=== PATIENT | female | born 1935 | race Caucasian/White ===

== ENCOUNTER 2016-08-04 11:28 | Observation (INO) | payer MEDICARE, OTHER ==
[~2016-08-04] VITALS: Ht 162.6 cm; Wt 66.7 kg
[2016-08-04 12:38] LABS: BASOPHILS % (AUTO) 0 % (0-10); EOSINOPHILS % (AUTO) 0 % (0-10); LYMPHOCYTES # (AUTO) 0.9 X 10^3 (1.0-4.0); LYMPHOCYTES % (AUTO) 11 % (12-44); MEAN CORPUSCULAR HEMOGLOBIN 32 PG (25-34); MEAN CORPUSCULAR HGB CONC 35 G/DL (32-36); MEAN CORPUSCULAR VOLUME 92 FL (80-99); MEAN PLATELET VOLUME 10.1 FL (7.4-10.4); MONOCYTES # (AUTO) 0.7 X 10^3 (0.0-1.0); MONOCYTES % (AUTO) 8 % (0-12); NEUTROPHILS % (AUTO) 81 % (42-75); PLATELET COUNT 387 10^3/uL (130-400); RED BLOOD COUNT 3.97 10^6/uL (4.35-5.85); RED CELL DISTRIBUTION WIDTH 12.8 % (10.0-14.5); WHITE BLOOD COUNT 8.6 10^3/uL (4.3-11.0)
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
[2016-08-04 12:52] LABS: ALBUMIN 3.9 G/DL (3.2-4.5); BILIRUBIN,TOTAL 0.8 MG/DL (0.1-1.0); CALCIUM 9.4 MG/DL (8.5-10.1); CREATININE SERUM 1.7 MG/DL (0.60-1.30); POTASSIUM 3.8 MMOL/L (3.6-5.0); TOTAL PROTEIN 6.9 G/DL (6.4-8.2)
--- NOTE | 2016-08-04 13:13 | Diagnostic Imaging Report ---
PROCEDURE: CT head without contrast. TECHNIQUE: Multiple contiguous axial images were obtained through the brain without the use of intravenous contrast. INDICATION: Altered mental status. Exam compared 05/27/2016. FINDINGS: Extensive periventricular white matter hypodensities symmetric and unchanged from prior likely reflective of chronic small vessel sequelae. No sulcal effacement. No findings of generalized or focal cerebral edema. The basilar cisterns are patent. No mass or mass effect. Orbits, sinuses and calvarium are within normal limits. IMPRESSION: Stable chronic senescent changes with atrophy and white matter disease. No hemorrhage or acute finding. No change from prior. Dictated by: Dictated on workstation # [id number]
[2016-08-04] MEDS ORDERED: ATOR40TA70 (14:32)
[2016-08-04] MEDS ORDERED: LEVO25TA5 PO (14:32)
[2016-08-04] MEDS ORDERED: LISI1TAB8 PO (14:32)
[2016-08-04 14:57] VITALS: BP 132/64
[2016-08-04] MEDS ORDERED: CATHETER FLUSH 10 ML SYR IV PRN ×2 (15:00→16:45)
--- NOTE | 2016-08-04 15:06 | Diagnostic Imaging Report ---
INDICATION: Status post fall, pain. TECHNIQUE: Single view chest 2:15 PM. CORRELATION STUDY: None FINDINGS: Heart size enlarged. Vasculature is within normal limits. Calcification of the aortic arch. Areas of atelectasis about the lung bases, right greater than left. No significant effusion, infiltrate or pneumothorax. The visualized ribs appear intact. There is degenerative change about the bilateral shoulders. Dislocation at the level of the right shoulder not excluded. IMPRESSION: 1. Bibasilar atelectasis with chronic change of the lung parenchyma. 2. No definitive displaced rib fracture. Dictated by: Dictated on workstation # [id number]
[2016-08-04] MEDS: ACETAMINOPHEN 325 MG TABLET/CAPLET (TYLENOL) PO PRN (15:11)
[2016-08-04] MEDS: NS IV 1000 ML 1,000 ML IV SCH (15:11)
[2016-08-04] MEDS ORDERED: ASPI-999 PO (15:55)
[2016-08-04 16:05] VITALS: BP 146/64
[2016-08-04] MEDS ORDERED: HALOPERIDOL 5 MG/ML (HALDOL) AMP IM PRN (16:45)
[2016-08-04 17:14] LABS: BILIRUBIN,URINE NEGATIVE (NEGATIVE); KETONES,URINE NEGATIVE (NEGATIVE); LEUKOCYTE ESTERASE ,URINE NEGATIVE (NEGATIVE); NITRITE,URINE NEGATIVE (NEGATIVE); PH,URINE 6.5 (5-9); PROTEIN,URINE NEGATIVE (NEGATIVE); SQUAMOUS EPITHELIAL CELL,UR RARE /HPF; UROBILINOGEN,URINE NORMAL (NORMAL)
[2016-08-04 20:15] VITALS: BP 127/62
[2016-08-04] MEDS: LORazepam INJ 2 MG/ML (ATIVAN) VIAL IVP PRN (21:18)
[2016-08-04 23:41] VITALS: BP 123/71
[2016-08-05] MEDS: NS IV 1000 ML 1,000 ML IV SCH ×3 (01:28→23:28)
[2016-08-05 03:49] VITALS: BP 161/75
[2016-08-05 05:43] LABS: BASOPHILS % (AUTO) 1 % (0-10); EOSINOPHILS # (AUTO) 0.2 10^3/uL (0.0-0.3); EOSINOPHILS % (AUTO) 2 % (0-10); LYMPHOCYTES # (AUTO) 1.3 X 10^3 (1.0-4.0); LYMPHOCYTES % (AUTO) 17 % (12-44); MEAN CORPUSCULAR HEMOGLOBIN 32 PG (25-34); MEAN CORPUSCULAR HGB CONC 35 G/DL (32-36); MEAN CORPUSCULAR VOLUME 93 FL (80-99); MEAN PLATELET VOLUME 9.8 FL (7.4-10.4); MONOCYTES # (AUTO) 0.7 X 10^3 (0.0-1.0); MONOCYTES % (AUTO) 9 % (0-12); NEUTROPHILS # (AUTO) 5.3 X 10^3 (1.8-7.8); NEUTROPHILS % (AUTO) 71 % (42-75); PLATELET COUNT 360 10^3/uL (130-400); RED BLOOD COUNT 3.85 10^6/uL (4.35-5.85); RED CELL DISTRIBUTION WIDTH 12.9 % (10.0-14.5); WHITE BLOOD COUNT 7.5 10^3/uL (4.3-11.0)
[2016-08-05 06:01] LABS: ALBUMIN 3.4 G/DL (3.2-4.5); BILIRUBIN,TOTAL 0.8 MG/DL (0.1-1.0); CALCIUM 8.7 MG/DL (8.5-10.1); CREATININE SERUM 1.38 MG/DL (0.60-1.30); POTASSIUM 3.7 MMOL/L (3.6-5.0)
[2016-08-05] MEDS ORDERED: FLU TRIvalent (5 YOA+) 2016-17 (AFLURIA) 0.5 ML IM ONE (07:00)
[2016-08-05 08:00] VITALS: BP 185/79
[2016-08-05] MEDS: lisINopril 10 MG (PRINIVIL) TAB PO SCH (09:27)
[2016-08-05] MEDS: ACETAMINOPHEN 325 MG TABLET/CAPLET (TYLENOL) PO PRN (09:51)
[2016-08-05] MEDS ORDERED: LISI-552 PO (10:37)
[2016-08-05 10:52] VITALS: BP 131/73
[2016-08-05 12:00] VITALS: BP 163/90
--- NOTE | 2016-08-05 12:19 | History & Physical-Hospitalist ---
HPI History of Present Illness: HPI/Chief Complaint The patient is an 81-year-old white female who was brought to the emergency room yesterday. She had been found by a caregiver and a neighbor lying on the floor of her home. She was unable to give any useful account as to when she might have fallen but it may have been as much as 12 hours prior. The neighbor took a cell phone photograph of her lying on the floor fully closed. She was in a prone position with her head rotated to the left. She had no specific complaints of pain or any evident injury on first exam. The caregiver also allowed that she had recently noted a subcutaneous anterior ribs in the midclavicular line at the level of ribs 10 and 11 and 12. This is not seemed to be tender and she never noted it to be discolored. They also reported that she had fallen at least 4 times in recent weeks. There may have been others as she does not have constant supervision. Source: patient Exam Limitations: no limitations Date Seen 08/05/16 Attending Physician Jeanette Tabares Rick D MD Referring Physician Date of Admission Aug 04, 2016 at 14:05 Home Medications & Allergies Home Medications Reviewed patient Home Medication Reconciliation Form Allergies Coded Allergies: No Allergy Information Available (Unverified , 05/27/16) Past Eowwfvm-Ibjarg-Bdxywa Hx Patient Social History Alcohol Use: Denies Use Recreational Drug Use: No Smoking Status: Unknown if Ever Smoked Physical Abuse Screen: No Sexual Abuse: No Recent Foreign Travel: No Contact w/other who traveled: No Recent Hopitalizations: No Recent Infectious Disease Expo: No Seasonal Allergies Seasonal Allergies: No Surgeries HX Surgeries: No (UNKNOWN-UNABLE TO GET HX FROM PT) Cardiovascular Hx Cardiovascular Disorders: Yes Cardiac Disorders: High Cholesterol, Hypertension Neurological Hx Neurological Disorders: No Reproductive System : No Sexually Transmitted Disease: No Female Reproductive Disorders: Denies Genitourinary Hx Genitourinary Disorders: No Gastrointestinal Hx Gastrointestinal Disorders: No Musculoskeletal Hx Musculoskeletal Disorders: No Endocrine Hx Endocrine Disorders: Yes Endocrine Disorders: Hypothyroidsim HEENT HX ENT Disorders: No HEENT Disorders: Cataract Loss of Vision: Denies Hearing Impairment: Denies Cancer Hx Cancer: No Psychosocial Hx Psychiatric Problems: No Family Medical History Family Hx: Patient reports no known family medical history. Review of Systems Constitutional: see HPI EENTM: no symptoms reported Respiratory: no symptoms reported Cardiovascular: no symptoms reported Gastrointestinal: no symptoms reported Genitourinary: no symptoms reported Musculoskeletal: no symptoms reported Skin: no symptoms reported Psychiatric/Neurological: Other Physical Exam Physical Exam Vital Signs Vital Sign - Last 12Hours 08/04/16 11:36 Temp 96.4 Pulse 66 Resp 12 B/P 114/82 Pulse Ox 96 O2 Delivery Room Air Capillary Refill : Less Than 3 Seconds General Appearance: Other (the patient was very vague about the circumstances and whether or not she had pain. It was obvious that there was a redness over the left cheek and the left eye was puffy and closed. This would have been the downside of her face to the floor) Eyes: Left Eye Lid Inflammation, Bilateral Eye Normal Inspection HEENT: Normal ENT Inspection Neck: Normal Inspection Respiratory: Chest Non Tender Lungs Clear Normal Breath Sounds No Accessory Muscle Use No Respiratory Distress Other (and it was not painful to palpation) Cardiovascular: Regular Rate, Rhythm No Edema No Gallop No JVD No Murmur Normal Peripheral Pulses Gastrointestinal: Normal Bowel Sounds No Organomegaly No Pulsatile Mass Non Tender Soft Back: Normal Inspection No CVA Tenderness No Vertebral Tenderness Extremity: Normal Capillary Refill Normal Inspection Normal Range of Motion Non Tender No Calf Tenderness No Pedal Edema Skin: Normal Color Warm/Dry Lymphatic: No Adenopathy Comments A chest x-ray was done in the emergency room in an attempt to define the lump on the left chest as described above. This was not useful but the chest x-ray defined a right shoulder dislocation of unknown age. The humeral head was palpable anterior to the clavicle. There was a palpable defect posterior to the humeral head and subacromial. The patient allowed me to move her shoulder and upper arm without complaining of pain. Results Results/Procedures Lab Laboratory Tests 08/04/16 11:38 08/05/16 05:10 Assessment/Plan Admission Diagnosis 1.senile dementia of the Alzheimer's type. 2.multiple falls. 3.inability to continue to live alone. 4.previous right shoulder dislocation age unknown. 5.essential hypertension Clinical Quality Measures DVT/VTE Risk/Contraindication: Risk Factor Score Per Nursin RFS Level Per Nursing on Admit: 2=Moderate BLAISE NESS MD Aug 05, 2016 12:19
[2016-08-05] MEDS: ENOXAPARIN 30 MG/0.3 ML (LOVENOX) SYR SC SCH (13:29)
[2016-08-05] MEDS: LORazepam INJ 2 MG/ML (ATIVAN) VIAL IVP PRN ×2 (14:32→20:01)
[2016-08-05 16:25] VITALS: BP 140/71
[2016-08-05 20:00] VITALS: BP 137/88
[2016-08-06 00:10] VITALS: BP 173/96
[2016-08-06 04:22] VITALS: BP 178/84
[2016-08-06] MEDS: ASPIRIN 81 MG CHEW (CHILDREN'S ASA) PO SCH (08:34)
[2016-08-06] MEDS: lisINopril 10 MG (PRINIVIL) TAB PO SCH (08:34)
[2016-08-06] MEDS: NS IV 1000 ML 1,000 ML IV SCH ×2 (08:34→18:10)
[2016-08-06 08:59] VITALS: BP 150/100
--- NOTE | 2016-08-06 11:33 | Progress Note-Hospitalist ---
Standard Progress Note Progress Notes/Assess & Plan Date Seen 08/06/16 Diagnosis 1.senile dementia of the Alzheimer's type. 2.multiple falls. 3.inability to continue to live alone. 4.previous right shoulder dislocation age unknown. 5.essential hypertension Assess & Plan/Chief Complaint The patient is quite somnolent this morning although she arouses to loud voice or noxious stimulus. She received Haldol 1 mg at 1600 yesterday and Ativan at 20 00. This was given for aggressive behavior but has left her somnolent as previously noted. Her son has arrived from [place] and has many questions and concerns. He Feels that it is likely she will need at least short-term assisted placement and therapy. The hope would be that she could then be discharged home and receive care from a 24 hour in-tourist home keeper. Physical exam: She does respond to firm voice and glabellar stimulus. However she quickly falls back asleep. Lungs are clear to auscultation. CV is regular without murmur. Abdomen is soft. Extremities show only the deformity previously discussed relative to the right shoulder. The son states that in retrospect this may have occurred last sprain as she was attempting to mow the grass with a push mower and kept stalling it in the grass and having to restart it. She then complained of shoulder pain for several weeks or more and could not abduct the shoulder. Impression: Hypertension. 2.dementia which seems to have accelerated lately. 3.multiple falls. 4.chronic right shoulder dislocation. 5.palpable mass left lower anterior ribs. Plan: Discontinue sedative. PT eval. assisted to her. CT scan for evaluation of the mass. Labs Laboratory Tests 08/04/16 11:38 08/05/16 05:10 BLAISE NESS MD Aug 06, 2016 11:33
[2016-08-06 11:44] VITALS: BP 133/89
[2016-08-06] MEDS: ENOXAPARIN 30 MG/0.3 ML (LOVENOX) SYR SC SCH (13:15)
[2016-08-06 15:55] VITALS: BP 170/84
--- NOTE | 2016-08-06 16:05 | Diagnostic Imaging Report ---
PROCEDURE: CT abdomen without contrast. TECHNIQUE: Multiple contiguous axial images were obtained through the abdomen without the use of intravenous contrast. INDICATION: Mass under the left lower rib cage. FINDINGS: The visualized portions of the lungs demonstrate bilateral basilar minimal atelectasis and bilateral small effusions, more prominent on the right side. There is asymmetric prominence of the costal margin on the left side compared to the right side with no soft tissue mass. No fluid collection. The abdominal aorta is normal in caliber. The liver, gallbladder, spleen, and pancreas appear unremarkable for an unenhanced exam. Nonspecific thickening in the left adrenal gland is noted. The right adrenal appears unremarkable. The kidneys demonstrate no hydronephrosis or stones. There is scoliosis and prominent degenerative changes in the lumbar spine. IMPRESSION: 1. There is asymmetric prominence of the costal margin on the left side which could be developmental with possible contribution from prior injury resulting in deformity of the costal margin. There is no soft tissue mass or fluid collection. 2. Bilateral small pleural effusions and minimal bibasilar atelectasis. Dictated by: Dictated on workstation # [id number]
[2016-08-06 19:58] VITALS: BP 139/99
[2016-08-07] VITALS: BP 139/94
[2016-08-07] MEDS: NS IV 1000 ML 1,000 ML IV SCH (04:05)
[2016-08-07 08:20] VITALS: BP 199/95
[2016-08-07 09:19] LABS: BASOPHILS % (AUTO) 0 % (0-10); EOSINOPHILS # (AUTO) 0.1 10^3/uL (0.0-0.3); EOSINOPHILS % (AUTO) 1 % (0-10); LYMPHOCYTES # (AUTO) 1.1 X 10^3 (1.0-4.0); LYMPHOCYTES % (AUTO) 11 % (12-44); MEAN CORPUSCULAR HEMOGLOBIN 32 PG (25-34); MEAN CORPUSCULAR HGB CONC 35 G/DL (32-36); MEAN CORPUSCULAR VOLUME 92 FL (80-99); MEAN PLATELET VOLUME 9.3 FL (7.4-10.4); MONOCYTES # (AUTO) 0.8 X 10^3 (0.0-1.0); MONOCYTES % (AUTO) 8 % (0-12); NEUTROPHILS # (AUTO) 7.8 X 10^3 (1.8-7.8); NEUTROPHILS % (AUTO) 80 % (42-75); PLATELET COUNT 351 10^3/uL (130-400); RED BLOOD COUNT 3.68 10^6/uL (4.35-5.85); RED CELL DISTRIBUTION WIDTH 12.6 % (10.0-14.5); WHITE BLOOD COUNT 9.7 10^3/uL (4.3-11.0)
[2016-08-07 09:39] LABS: ALANINE AMINOTRANSFERASE 22 U/L (0-55); ALBUMIN 3.4 G/DL (3.2-4.5); ANION GAP 10 MMOL/L (5-14); ASPARTATE AMINO TRANSFERASE 45 U/L (5-34); BILIRUBIN,TOTAL 0.9 MG/DL (0.1-1.0); BLOOD UREA NITROGEN 14 MG/DL (7-18); BUN/CREATININE RATIO 16; CALCIUM 8.7 MG/DL (8.5-10.1); CARBON DIOXIDE 23 MMOL/L (21-32); CHLORIDE 103 MMOL/L (98-107); CREATININE SERUM 0.87 MG/DL (0.60-1.30); GFR ESTIMATED > 60; GLUCOSE 81 MG/DL (70-105); POTASSIUM 3.4 MMOL/L (3.6-5.0); SODIUM 136 MMOL/L (135-145)
[2016-08-07] MEDS: lisINopril 10 MG (PRINIVIL) TAB PO SCH (10:05)
[2016-08-07] MEDS: ASPIRIN 81 MG CHEW (CHILDREN'S ASA) PO SCH (10:05)
--- NOTE | 2016-08-07 11:49 | CONSULTATION REPORT ---
DATE OF CONSULTATION: 08/07/2016 SUMMARY: This is an 81-year-old white lady who was found on the floor at home and went to the hospital, confused with multiple falls and dehydration. The patient has dementia and is unable to give any story at all or previous history. She had a catheter, when she came to the floor was removed and she didn't void. The scan of her bladder she had only 300 mL. The catheter was inserted and diagnosis of urinary retention was made. IMPRESSION: Possibly retention versus dehydration and decreased urine output. RECOMMENDATION: Take the Salas catheter out and just follow her up with bladder scan at bedtime and p.r.n. and straight catheter only if it is over 450 mL. Job ID: [id number] Dictated Date: 08/07/2016 11:03:22 Conveyor Attendant Date: 08/07/2016 11:44:50/helena
[2016-08-07] MEDS ORDERED: ENOXAPARIN 40 MG/0.4 ML (LOVENOX) SYR SC SCH (12:30)
--- NOTE | 2016-08-07 13:26 | Physical Therapy Evaluation ---
PT Evaluation-General Medical Diagnosis Admission Date Aug 04, 2016 at 14:41 Medical Diagnosis: weakness, falls Onset Date: Aug 04, 2016 Therapy Diagnosis Therapy Diagnosis: impaired mobility, balance, strength Height/Weight Height (Feet): 5 Height (Inches): 4.00 Weight (Pounds): 147 Weight (Ounces): 0.0 Precautions Precautions/Isolations: Fall Prevention, Standard Precautions Referral Physician: Jeanette Tabares DO Reason for Referral: Evaluation/Treatment Medical History Pertinent Medical History: HTN, Hypothroidism Additional Medical History cataracts, Alzheimer's, high cholesterol Current History Patient came to the ER after a caregiver found her lying on the floor after falling. Reviewed History: Yes Social History Home: Single Level Current Living Status: Alone Entry Into Home: Stairs With Railing Obtained history from family member who says she has 5 steps to go up to her bedroom, she ambulated with a single point cane occasionally, and she lives alone but from now on she would always have somebody with her. Prior/Core FIM Prior Level of Function Functional Shelby Measure 0=Not Assessed/NA 4=Minimal Assistance 1=Total Assistance 5=Supervision or Setup 2=Maximal Assistance 6=Modified Shelby 3=Moderate Assistance 7=Complete Shelby Bed Mobility: 6 Transfers (B,C,W/C) (FIM): 6 Gait: 6 PT Evaluation-Current Subjective Patient in recliner pre tx, family in the room, patient is sleeping and extremely difficult to rouse. She will say words in response to questions but will not open her eyes or follow directions. Pain Numeric Pain Scale: 0-No Pain Comment: Patient actually said she had no pain. Pt/Family Goals patient unable to state a goal Objective Patient Orientation: Confused Attachments: Salas Catheter ROM/Strength ROM Lower Extremities WNL Strenght Lower Extremities unable to test Integumentary/Posture Bladder Incontinence: Salas Cath Neuromuscular (Tone, Coordination, Reflexes) unable to test Sensory Sensation Lower Extremities unable to test Transfers Functional Shelby Measure 0=Not Assessed/NA 4=Minimal Assistance 1=Total Assistance 5=Supervision or Setup 2=Maximal Assistance 6=Modified Shelby 3=Moderate Assistance 7=Complete Shelby Transfers (B, C, W/C) (FIM): 2 Scootin Rollin Supine to/from Sit: 2 Sit to/from Stand: 2 bed t/f WC(FIM only if WC use): 2 Patient seemed to help a little when standing and would shuffle her feet a little during the transfer. Assessment/Needs Patient too fatigued/confused to participate much during therapy. Got patient back to bed. Her family said she had been up in a chair for a few hours and was much more alert. Rehab Potential: Poor PT Fdc Goals Traverse Rod Assembler Goals PT Fdc Goals Time Frame: Aug 14, 2016 Transfers (B,C,W/C) (FIM): 3 Gait (FIM): 1 Distance: 5' Gait Level of Assist: 3 Gait Assistive Device: FWW PT Plan Problem List Problem List: Activity Tolerance, Functional Strength, Safety, Balance, Gait, Transfer, Bed Mobility, ROM Treatment/Plan Treatment Plan: Continue Plan of Care Treatment Plan: Bed Mobility, Education, Functional Activity Yunier, Functional Strength, Gait, Safety, Therapeutic Exercise, Transfers Treatment Duration: Aug 14, 2016 # of days/week 5-6 Visits Per Week: 5-6 Minutes/Day (M-F): 15-30 Minutes/Day (Sat/Sheppard): 15-30 Pt/Family Agrees w/Plan: Yes Safety Risks/Education Patient Education: Transfer Techniques, Correct Positioning, Safety Issues Teaching Recipient: Patient Teaching Methods: Demonstration, Discussion Response to Teaching: Reinforcement Needed Discharge Recommendations Plan Patient will perform bed mobility and transfer training, balance and endurance training, functional strengthening, gait training, education, to improve functional mobility and independence at home. Therapy D/C Recommendations: Home w/ Family Support Time/GCodes Time In: 1305 Time Out: 1320 Total Billed Treatment Time: 15 Total Billed Treatment 1 visit EVM 15 min ANGELO RENTERIA PT Aug 07, 2016 13:26
--- NOTE | 2016-08-07 14:34 | Progress Note-Hospitalist ---
Standard Progress Note Progress Notes/Assess & Plan Date Seen 08/07/16 Diagnosis 1.senile dementia of the Alzheimer's type. 2.multiple falls. 3.inability to continue to live alone. 4.previous right shoulder dislocation age unknown. 5.essential hypertension Assess & Plan/Chief Complaint The patient is more alert today. She was especially alert this morning and was able to shower and the shampoo. She has been slower this afternoon however when I thumped her forehead to stimulate her she reported that she was taking names and writing them down. Plans are for her to be dismissed tomorrow. There still appears to be some confusion about the medicines that she was taking at home at the time of admission. Physical exam: Curiously she holds her eyes closed. She does not admit to any pain. Lungs are clear to auscultation. CV is regular. She seems to be very stiff. Impression: Fall at home. Evidence of increasing dementia. Plan: Physical therapy. Stimulation. Reexamine prescription list. Labs Laboratory Tests 08/07/16 09:13 BLAISE NESS MD Aug 07, 2016 14:34
--- NOTE | 2016-08-07 14:47 | Occupational Therapy Eval ---
OT Evaluation-General/PLF Medical Diagnosis Admission Date Aug 04, 2016 at 14:41 Medical Diagnosis: weakness, falls Onset Date: Aug 04, 2016 Therapy Diagnosis Therapy Diagnosis: Impaired self care skills Height/Weight Height (Feet): 5 Height (Inches): 4.00 Weight (Pounds): 147 Weight (Ounces): 0.0 Precautions Precautions/Isolations: Fall Prevention, Standard Precautions Safety Interventions: Bed Exit Alarm Referral Physician: Jeanette Tabares DO Medical History Pertinent Medical History: Dementia, HTN, Hypothroidism Additional Medical History high cholesterol Reviewed History: Yes Social History Home: Single Level Current Living Status: Alone (with caregiver support) Entry Into Home: Stairs With Railing ADL-Prior Level of Function ADL PLOF Comments Pt was able to complete most basic self care without assistance. Had assist with showers. Used a cane for some mobility. Has had falls recently. DME/Equipment: Shower, Tub/Shower OT Current Status Subjective Pt in bed with eyes closed and son and friend present. Pt agrees to participate with encouragement. Pt states she is not currently having pain. Pt able to respond to simple questions during session, but keeps eyes closed. Mental Status/Objective Patient Orientation: Person, Confused Current Upper Extremity ROM Pt has limited participation in UE assessment secondary to lethargy and confusion. Son reports pt has decreased right shoulder ROM secondary to prior injury. Upper Extremity Strength Unable to perform MMT at this time secondary to lethargy. Pt is able to emergency management program specialist with bilateral hands, but does not follow commands for other strength testing. ADL-Treatment ADL-Current Pt supine to sit with maximal assistance. Pt sat EOB with assist for balance. Pt tends to lean backward, requires assist to correct and multiple cues for proper posture. Unable to complete ADL assessment at this time. Sit to supine with max assist. Assist x2 required to scoot to HOB and reposition in bed. Pt in bed with needs met and visitors present after session. Functional [place] Measure 0=Not Assessed/NA 4=Minimal Assistance 1=Total Assistance 5=Supervision or Setup 2=Maximal Assistance 6=Modified [place] 3=Moderate Assistance 7=Complete IndependenceIRFPAI Quality Coding Scale 6 Independent with activity with or without an assistive device 5 Patient requires set up or clean up by helper. Patient completes activity by themselves 4 Supervision or touching assist (CGA). [place] provide cues , steadying assist 3 The helper provides less than half the effort to complete the activity 2 The helper provides more than half the effort to complete the activity 1 Dependent. The helper does all the effort to complete an activity 7 Patient refused to complete or attempt activity 9 The patient did not perform the activity before the current illness or injury 88 Not attempted due to Medical conditions or safety concerns Education OT Patient Education: Rehab process Teaching Recipient: Patient Teaching Methods: Discussion Response to Teaching: Unable to Comprehend OT Short Term Goals Short Term Goals 1=Demonstrate adherence to instructed precautions during ADL tasks. 2=Patient will verbalize/demonstrate understanding of assistive devices/ modifications for ADL. 3=Patient will improve strength/tolerance for activity to enable patient to perform ADL's. OT Mixer And Scaler Goals Mixer And Scaler Goals Time Frame: 2 weeks Eating (FIM): 5 Grooming(FIM): 4 Upper Body Dressing(FIM): 3 Toilet/Commode Transfer(FIM): 3 Additional Goals: 1-Demonstrate ADL Tasks, 2-Verbalize Understanding, 3- ImproveStrength/[place] 1=Demonstrate adherence to instructed precautions during ADL tasks. 2=Patient will verbalize/demonstrate understanding of assistive devices/ modifications for ADL. 3=Patient will improve strength/tolerance for activity to enable patient to perform ADL's. OT Education/Plan Problem List/Assessment Assessment: Decreased Activ Tolerance, Decreased Safety Aware, Decreased UE Strength, Dependent Transfers, Impaired Bed Mobility, Impaired Cognition, Impaired Funct Balance, Impaired Self-Care Skills Pt admitted with confusion and falls. Pt answers questions and agrees to participate with therapy, but is lethargic and has limited participation. Pt demonstrates decreased mobility, ADL functioning, strength, activity tolerance, and safety awareness. Pt to benefit from skilled OT intervention for ADL training, transfers, strengthening, and safety education to maximize level of function and allow safe discharge plan. Discharge Recommendations Plan/Recommendations: Continue POC Treatment Plan/Plan of Care Treatment,Training & Education: Yes Patient would benefit from OT for education, treatment and training to promote independence in ADL's, mobility, safety and/or upper extremity function for ADL' s. Plan of Care: ADL Retraining, Functional Mobility, UE Funct Exercise/Act Treatment Duration: Aug 21, 2016 # of days/week 5 Visits Per Week: 5 Rehab Potential: Poor Time/GCodes Start Time: 14:03 Stop Time: 14:28 Total Time Billed (hr/min): 25 Billed Treatment Time 1 visit, EVM(25minutes) PT/OT Therapy GCodes Therapy Functional Limitation: Occupational Therapy Test(s)/Tool used to determine: FIM Functional Limitation-Current Charge Code: SELFCUR Modifier: CN Functional Limitation-Goal Charge Code: SELFGOAL Modifier: DEONDRE LO OT Aug 07, 2016 14:47
[2016-08-07 15:44] VITALS: BP 190/92
[2016-08-07 15:55] LABS: MYOGLOBIN SERUM 410.4 NG/ML (10.0-92.0)
[2016-08-07] MEDS ORDERED: lisINopril 10 MG (PRINIVIL) TAB PO NR (16:30)
[2016-08-08 00:49] VITALS: BP 178/81
[2016-08-08 08:00] VITALS: BP 130/90
[2016-08-08] MEDS: ASPIRIN 81 MG CHEW (CHILDREN'S ASA) PO SCH (08:43)
[2016-08-08] MEDS ORDERED: lisINopril 20 MG (ZESTRIL) TAB PO SCH (09:00)
[2016-08-08] MEDS ORDERED: ACET325T49 PO (09:10)
--- NOTE | 2016-08-08 09:14 | Discharge Instructions ---
Discharge Instructions Discharge Medications New, Converted or Re-Newed RX: Other New Medications: Acetaminophen (Acetaminophen) 325 Mg Tablet 650 MG PO Q4H PRN MILD PAIN Days 30 TAB Continued Medications: Aspirin (Aspirin) 81 Mg Tab.chew 81 MG PO DAILY TAB Levothyroxine Sodium (Levothyroxine Sodium) 25 Mcg Tablet 25 MCG PO DAILY TAB Lisinopril (Lisinopril) 20 Mg Tablet 20 MG PO DAILY TAB Discontinued Medications: Lisinopril/Hydrochlorothiazide (Lisinopril-Hctz 20-12.5 mg Tab) 1 Each Tablet 1 TAB PO DAILY TAB Patient Instructions Goal/Follow Up Appt: Dr Barfield in 1 week Patient Instructions: Admit to Dr Roderick Barfield service at [facility] Activity & Diet Discharge Diet: No Restrictions Activity as Tolerated: Yes SATYA SIDDIQUI DO Aug 08, 2016 09:14
[2016-08-08] MEDS ORDERED: AMLO5TAB4 PO (09:17)
--- NOTE | 2016-08-08 09:23 | Discharge Summary-Hospitalist ---
Diagnosis/Chief Complaint Date of Admission Aug 04, 2016 at 14:41 Date of Discharge Discharge Date: Aug 08, 2016 Admission Diagnosis 1.senile dementia of the Alzheimer's type. 2.multiple falls. 3.inability to continue to live alone. 4.previous right shoulder dislocation age unknown. 5.essential hypertension Discharge Diagnosis 1.senile dementia of the Alzheimer's type w/delirium unsure of recovery potential. 2.multiple falls. 3.inability to continue to live alone. 4.previous right shoulder dislocation age unknown. 5.essential hypertension Reason Hospital Visit/Course The patient is an 81-year-old white female who was brought to the emergency room yesterday. She had been found by a caregiver and a neighbor lying on the floor of her home. She was unable to give any useful account as to when she might have fallen but it may have been as much as 12 hours prior. The neighbor took a cell phone photograph of her lying on the floor fully closed. She was in a prone position with her head rotated to the left. She had no specific complaints of pain or any evident injury on first exam. The caregiver also allowed that she had recently noted a subcutaneous anterior ribs in the midclavicular line at the level of ribs 10 and 11 and 12. This is not seemed to be tender and she never noted it to be discolored. They also reported that she had fallen at least 4 times in recent weeks. There may have been others as she does not have constant supervision. Notes from 08/08/2016: Chart Review: CT scan left side rib deformity likely due to trauma from fall ATX on CXR talent coordinator: RN states that pt is stable enough for DC. Pt does not have pain. Pt is alert, but is not very ambulatory. Pt was restarted on normal BP medicine, and BP is stable. Pt is voiding and incontinent. Patient Interview: Pt was eating during visit. Pt's son states that pt had prescription changes in June, which confused pt' s caregiver, and thinks that pt may have been given double doses of Lisinopril ( 2x 20mg) by accident. Pt son states that BP was low, and may have been responsible for increased fall risk. Dr. Tabares informs pt son that this is not likely, due to pt's current high BP. Dr. Tabares informs pt son that she has informed Dr. Barfield of pt plan, and that he will manage pt from here on. No fever, vital signs stable, refuses to open her eyes, being fed by a feeder Regular rate and rhythm, clear to auscultation bilaterally but poor excursion unable to ascertain details No edema Plan: PT/OT Pt will move to [facility] Norvasc 5mg due to OOC BP and continue at jail Left message with Dr. Barfield regarding pt plan Prognosis extremely poor unsure of the ability to recover it appears that her dementia so severe in the acute delirium is causing issue to spiral out-of- control and unable to recover Scribed by Gurdeep Quiñones under the direct supervision of Dr. Tabares. Discharge Summary Discharge Physical Examination Allergies: Coded Allergies: No Allergy Information Available (Unverified , 05/27/16) Vitals & I&Os Vital Signs Date Time Temp Pulse Resp B/P Pulse Ox O2 Delivery O2 Flow Rate FiO2 08/08/16 11:37 08/08/16 08:45 Room Air 08/08/16 08:00 98.8 67 20 97 Hospital Course Labs (last 24 hrs) Laboratory Tests 08/07/16 15:17: Myoglobin 410.4H, Total Creatine Kinase 664H Discharge Home Medications: Active Scripts Active Norvasc (Amlodipine Besylate) 5 Mg Tablet 5 Mg PO DAILY 30 Days Acetaminophen 325 Mg Tablet 650 Mg PO Q4H PRN 30 Days Reported Lisinopril 20 Mg Tablet 20 Mg PO DAILY Aspirin 81 Mg Tab.chew 81 Mg PO DAILY Levothyroxine Sodium 25 Mcg Tablet 25 Mcg PO DAILY Instructions to patient/family Please see electonic discharge instructions given to patient. Clinical Quality Measures DVT/VTE Risk/Contraindication: Risk Factor Score Per Nursin RFS Level Per Nursing on Admit: 2=Moderate SATYA TABARES DO Aug 08, 2016 09:23
[2016-08-08] MEDS ORDERED: amLODIPine 5 MG (NORVASC) TAB PO NR (09:26)
--- NOTE | 2016-08-08 12:01 | Progress Note-Urology ---
Progress Note-Urology Progress Notes/Assess & Plan Progress/Assessment & Plan VOIDING WELL, HOME, NO F/U APPOINTMENT Final Diagnosis URINE RETENTION DAVID CLARK MD Aug 08, 2016 12:01 pm
== END 2016-08-08 09:10 ==
LOC: ER 11:28 → EDUNIT# 11:28 → 4TH 14:05 → UNDOADMOB 14:05 → 4TH 14:41
PROVIDERS: ADMIT Internal Medicine; ATTEND Internal Medicine
DX: G30.1 Alzheimer's disease with late onset (principal); F02.80 Dementia in other diseases classified elsewhere, unspecified severity, without behavioral disturbance, psychotic disturbance, mood disturbance, and anxiety; F05 Delirium due to known physiological condition; I10 Essential (primary) hypertension; E78.5 Hyperlipidemia, unspecified; E03.9 Hypothyroidism, unspecified; M24.411 Recurrent dislocation, right shoulder; R22.2 Localized swelling, mass and lump, trunk; R33.9 Retention of urine, unspecified; W19.XXXA Unspecified fall, initial encounter; Y92.019 Unspecified place in single-family (private) house as the place of occurrence of the external cause; Y99.8 Other external cause status; Z79.899 Other long term (current) drug therapy; Z23 Encounter for immunization
CPT/HCPCS: 36415; 70450; 71010; 74150; 80053; 81000; 82550; 83874; 85025; 90471; G0378

== ENCOUNTER → 2017-04-19 | Outpatient (CLI) | payer MEDICARE, OTHER ==
[~2017-04-19] MED LIST: ACET325T49 PO; AMLO5TAB4 PO; ASPI-999 PO; ATOR40TA70; LEVO25TA5 PO; LISI-552 PO; LISI1TAB8 PO; NITR-65 PO
[2017-04-19 14:37] LABS: BILIRUBIN,URINE NEGATIVE (NEGATIVE); KETONES,URINE NEGATIVE (NEGATIVE); LEUKOCYTE ESTERASE ,URINE NEGATIVE (NEGATIVE); NITRITE,URINE NEGATIVE (NEGATIVE); PH,URINE 6.5 (5-9); PROTEIN,URINE NEGATIVE (NEGATIVE); UROBILINOGEN,URINE NORMAL (NORMAL)
[2017-04-19 14:44] LABS: WBC,URINE 0 /HPF
--- NOTE | 2017-04-21 20:15 | Physician Query-Final Dx ---
Clinic Account Progress/Dx Physician Query: Please give diagnosis Need dx for UA Date of Service Apr 19, 2017 at 14:31 PAYAM ALCANTARA Apr 21, 2017 20:15
== END ==
LOC: LABNPT 14:31
DX: N10 Acute pyelonephritis (principal)
CPT/HCPCS: 81000

== ENCOUNTER 2017-04-26 01:35 | Emergency (ER) | payer MEDICARE, OTHER ==
[~2017-04-26] VITALS: Ht 165.1 cm; Wt 68.0 kg
[~2017-04-26 01:35] MED LIST changes: -NITR-65 PO
[2017-04-26 01:55] LABS: BILIRUBIN,URINE NEGATIVE (NEGATIVE); KETONES,URINE NEGATIVE (NEGATIVE); LEUKOCYTE ESTERASE ,URINE 1+ (NEGATIVE); NITRITE,URINE NEGATIVE (NEGATIVE); PH,URINE 5 (5-9); PROTEIN,URINE NEGATIVE (NEGATIVE); UROBILINOGEN,URINE NORMAL (NORMAL)
[2017-04-26 02:03] LABS: WBC,URINE 0-2 /HPF
[2017-04-26 02:58] LABS: BASOPHILS # (AUTO) 0.1 10^3/uL (0.0-0.1); BASOPHILS % (AUTO) 1 % (0-10); EOSINOPHILS # (AUTO) 0.2 10^3/uL (0.0-0.3); EOSINOPHILS % (AUTO) 2 % (0-10); LYMPHOCYTES % (AUTO) 31 % (12-44); MEAN CORPUSCULAR HEMOGLOBIN 32 PG (25-34); MEAN CORPUSCULAR HGB CONC 33 G/DL (32-36); MEAN CORPUSCULAR VOLUME 95 FL (80-99); MEAN PLATELET VOLUME 10.2 FL (7.4-10.4); MONOCYTES # (AUTO) 0.6 X 10^3 (0.0-1.0); MONOCYTES % (AUTO) 9 % (0-12); NEUTROPHILS # (AUTO) 3.7 X 10^3 (1.8-7.8); NEUTROPHILS % (AUTO) 57 % (42-75); PLATELET COUNT 290 10^3/uL (130-400); RED BLOOD COUNT 3.76 10^6/uL (4.35-5.85); RED CELL DISTRIBUTION WIDTH 13.8 % (10.0-14.5); WHITE BLOOD COUNT 6.4 10^3/uL (4.3-11.0)
[2017-04-26 03:12] LABS: ALANINE AMINOTRANSFERASE 9 U/L (0-55); ALBUMIN 3.6 GM/DL (3.2-4.5); ANION GAP 8 MMOL/L (5-14); ASPARTATE AMINO TRANSFERASE 14 U/L (5-34); BILIRUBIN,TOTAL 0.3 MG/DL (0.1-1.0); BLOOD UREA NITROGEN 12 MG/DL (7-18); BUN/CREATININE RATIO 14; CALCIUM 9.3 MG/DL (8.5-10.1); CARBON DIOXIDE 25 MMOL/L (21-32); CHLORIDE 104 MMOL/L (98-107); CREATININE SERUM 0.83 MG/DL (0.60-1.30); GFR ESTIMATED > 60; GLUCOSE 80 MG/DL (70-105); INR 0.9 (0.8-1.4); POTASSIUM 3.8 MMOL/L (3.6-5.0); PROTHROMBIN TIME PATIENT 12.3 SEC (12.2-14.7); SODIUM 137 MMOL/L (135-145); TOTAL PROTEIN 6.8 GM/DL (6.4-8.2)
[2017-04-26] MEDS ORDERED: NS 100 ML (IVPB) BAG IV ONE (04:00)
[2017-04-26] MEDS ORDERED: IOHEXOL 350 MG/ML 100 ML (OMNIPAQUE 350) VIAL IV ONE (04:00)
--- NOTE | 2017-04-26 04:42 | ED GU-Female ---
General Chief Complaint: -Female Stated Complaint: VAG BLEEDING Nursing Triage Note: c/o hematuria Nursing Sepsis Screen: No Definite Risk Source: patient (VERY POOR HISTORIAN--POOR MEMORY), EMS, group home records History of Present Illness Time seen by provider: 01:34 Initial Comments PT ARRIVES VIA EMS FROM [facility] STAFF NOTED THAT PT HAS HAD BLOOD IN TOILET EARLIER TODAY AND MORE BLOOD WAS NOTED TONIGHT, SO SENT PT HERE PT DENIES ANY PAIN AND HAS NO COMPLAINTS OF ANY KIND DENIES ANY DIFFICULTY OR PAIN ON URINATION DENIES ABDOMINAL PAIN OR RECTAL PAIN DENIES NAUSEA/VOMITING/DIARRHEA/CONSTIPATION DENIES FEVER OR CHILLS PCP: DR. LEAHY Allergies and Home Medications Allergies Coded Allergies: No Allergy Information Available (Unverified , 05/27/16) Home Medications Acetaminophen 325 Mg Tablet, 650 MG PO Q4H PRN for MILD PAIN for 30 Days Prescribed by: SATYA SIDDIQUI on 08/08/16 0910 Amlodipine Besylate 5 Mg Tablet, 5 MG PO DAILY for 30 Days Prescribed by: SATYA SIDDIQUI on 08/08/16 0917 Aspirin 81 Mg Tab.chew, 81 MG PO DAILY, (Reported) Levothyroxine Sodium 25 Mcg Tablet, 25 MCG PO DAILY, (Reported) Lisinopril 20 Mg Tablet, 20 MG PO DAILY, (Reported) Nitrofurantoin Monohyd/M-Cryst 100 Mg Capsule, 100 MG PO BID, #20 Prescribed by: BALAJI KERR on 04/26/17 0503 Constitutional: no symptoms reported Respiratory: no symptoms reported Cardiovascular: no symptoms reported Gastrointestinal: see HPI Genitourinary: see HPI Musculoskeletal: no symptoms reported Skin: no symptoms reported Psychiatric/Neurological: Other (PT WITH DEMENTIA) Endocrine: No Symptoms Reported Hematologic/Lymphatic: See HPI Past Drpascm-Vflqfo-Lndakw Hx Patient Social History Alcohol Use: Denies Use Recreational Drug Use: No Smoking Status: Never a Smoker 2nd Hand Smoke Exposure: No Recent Foreign Travel: No Contact w/Someone Who Travel: No Recent Infectious Disease Expo: No Recent Hopitalizations: No Seasonal Allergies Seasonal Allergies: No Surgeries History of Surgeries: No (UNKNOWN-UNABLE TO GET HX FROM PT. PT CLAIMS SHE HAS NEVER HAD SURGERY IN HER LIFE) Respiratory History of Respiratory Disorde: No Cardiovascular History of Cardiac Disorders: Yes Cardiac Disorders: High Cholesterol, Hypertension Neurological History of Neurological Disord: Yes Neurological Disorders: Dementia Reproductive System Sexually Transmitted Disease: No Female Reproductive Disorders: Denies COPY PREPARER History: Menopausal Genitourinary History of Genitourinary Disor: No Gastrointestinal History of Gastrointestinal Di: No Musculoskeletal History of Musculoskeletal Dis: Yes (FREQUENT FALLS/GAIT DISTURBANCE; GENERALIZED WEAKNESS) Endocrine History of Endocrine Disorders: Yes Endocrine Disorders: Hypothyroidsim HEENT History of HEENT Disorders: Yes (RIGHT EYE CATARACT) HEENT Disorders: Cataract Loss of Vision: Denies Hearing Impairment: Denies Cancer History of Cancer: No Psychosocial History of Psychiatric Problem: No Integumentary History of Skin or Integumenta: No Blood Transfusions History of Blood Disorders: No Family Medical History Family Medial History: Patient reports no known family medical history. Physical Exam Vital Signs Vital Sign - Last 12Hours 04/26/17 01:42 Temp 98.2 Pulse 59 Resp 18 B/P (MAP) 158/77 Pulse Ox 98 Capillary Refill : Less Than 3 Seconds General Appearance: WD/WN, no apparent distress, other (SMILING, TALKATIVE.NOTED TO HAVE A MODERATE AMOUNT OF BRIGHT RED BLOOD IN DEPENDS BRIEF) HEENT: PERRL/EOMI, No pale conjunctivae (R) Neck: normal inspection Cardiovascular: normal peripheral pulses, regular rate, rhythm, no murmur Respiratory: normal breath sounds, no respiratory distress, no accessory muscle use Gastrointestinal: normal bowel sounds, non tender, soft, no organomegaly, no pulsatile mass Rectal: normal rectal tone, heme negative stool, other (FIRM STOOL IN RECTUM) Pelvic: vaginal bleeding, other (UNABLE TO PERFORM SPECULUM OR BIMANUAL EXAM DUE TO PT DISCOMFORT, BUT ABLE TO PASS ONE FINGER IN VAGINAL WITH GROSS BLOOD ON GLOVE. ) Back: no CVA tenderness, no vertebral tenderness Extremities: normal inspection, no pedal edema, no calf tenderness, normal capillary refill Neurologic/Psychiatric: garment looper II-XII nml as tested, no motor/sensory deficits, alert, normal mood/affect, other (VERY PLEASANTLY CONFUSED TO PLACE, TIME, SITUATION) Skin: normal color, warm/dry Progress/Results/Core Measures Results/Orders Lab Results Laboratory Tests Test 04/26/17 01:45 04/26/17 02:46 Range/Units Urine Color YELLOW Urine Clarity CLEAR Urine pH 5 5-9 Urine Specific [place] 1.010 L 1.016-1.022 Urine Protein NEGATIVE NEGATIVE Urine Glucose (UA) NEGATIVE NEGATIVE Urine Ketones NEGATIVE NEGATIVE Urine Nitrite NEGATIVE NEGATIVE Urine Bilirubin NEGATIVE NEGATIVE Urine Urobilinogen NORMAL NORMAL MG/DL Urine Leukocyte Esterase 1+ H NEGATIVE Urine RBC (Auto) 1+ H NEGATIVE Urine RBC NONE /HPF Urine WBC 0-2 /HPF Urine Squamous Epithelial Cells NONE /HPF Urine Crystals NONE /LPF Urine Bacteria MODERATE H /HPF Urine Casts NONE /LPF Urine Mucus NEGATIVE /LPF Urine Culture Indicated YES White Blood Count 6.4 4.3-11.0 10^3/uL Red Blood Count 3.76 L 4.35-5.85 10^6/uL Hemoglobin 11.9 11.5-16.0 G/DL Hematocrit 36 35-52 % Mean Corpuscular Volume 95 80-99 FL Mean Corpuscular Hemoglobin 32 25-34 PG Mean Corpuscular Hemoglobin Concent 33 32-36 G/DL Red Cell Distribution Width 13.8 10.0-14.5 % Platelet Count 290 130-400 10^3/uL Mean Platelet Volume 10.2 7.4-10.4 FL Neutrophils (%) (Auto) 57 42-75 % Lymphocytes (%) (Auto) 31 12-44 % Monocytes (%) (Auto) 9 0-12 % Eosinophils (%) (Auto) 2 0-10 % Basophils (%) (Auto) 1 0-10 % Neutrophils # (Auto) 3.7 1.8-7.8 X 10^3 Lymphocytes # (Auto) 2.0 1.0-4.0 X 10^3 Monocytes # (Auto) 0.6 0.0-1.0 X 10^3 Eosinophils # (Auto) 0.2 0.0-0.3 10^3/uL Basophils # (Auto) 0.1 0.0-0.1 10^3/uL Prothrombin Time 12.3 12.2-14.7 SEC INR Comment 0.9 0.8-1.4 Activated Partial Thromboplast Time 27 24-35 SEC Sodium Level 137 135-145 MMOL/L Potassium Level 3.8 3.6-5.0 MMOL/L Chloride Level 104 98-107 MMOL/L Carbon Dioxide Level 25 21-32 MMOL/L Anion Gap 8 5-14 MMOL/L Blood Urea Nitrogen 12 7-18 MG/DL Creatinine 0.83 0.60-1.30 MG/DL Estimat Glomerular Filtration Rate > 60 BUN/Creatinine Ratio 14 Glucose Level 80 70-105 MG/DL Calcium Level 9.3 8.5-10.1 MG/DL Total Bilirubin 0.3 0.1-1.0 MG/DL Aspartate Amino Transf (AST/SGOT) 14 5-34 U/L Alanine Aminotransferase (ALT/SGPT) 9 0-55 U/L Alkaline Phosphatase 74 40-136 U/L Total Protein 6.8 6.4-8.2 GM/DL Albumin 3.6 3.2-4.5 GM/DL My Orders Orders - BALAJI KERR DO Ua Culture If Indicated (04/26/17 01:44) Urine Culture (04/26/17 01:45) Saline Lock/Iv-Start (04/26/17 02:21) Cbc With Automated Diff (04/26/17 02:21) Comprehensive Metabolic Panel (04/26/17 02:21) Protime With Inr (04/26/17 02:21) Partial Thromboplastin Time (04/26/17 02:21) Ct Abdomen/Pelvis W (04/26/17 02:21) Iohexol Injection (Omnipaque 350 Mg/Ml 1 (04/26/17 04:00) Ns (Ivpb) (Sodium Chloride 0.9% Ivpb Bag (04/26/17 04:00) Medications Given in ED Current Medications Medications Dose Ordered Sig/Day Route Start Time Stop Time Status Last Admin Dose Admin Iohexol 100 ml ONCE ONCE IV 04/26/17 04:00 04/26/17 04:49 DC 04/26/17 03:49 100 ML Sodium Chloride 100 ml ONCE ONCE IV 04/26/17 04:00 04/26/17 04:49 DC 04/26/17 03:49 100 ML Vital Signs/I&O Vital Sign - Last 12Hours 04/26/17 01:42 Temp 98.2 Pulse 59 Resp 18 B/P (MAP) 158/77 Pulse Ox 98 Blood Pressure Mean: 104 Progress Note : Progress Note UNEVENTFUL ER STAY Diagnostic Imaging Comments CT ABDOMEN/PELVIS--HETEROGENOUS LOW DENSITY IN CENTRAL UTERUS--POSSIBLE BLOOD CLOT, CANNOT EXCLUDE ENDOMETRIAL MASS OR ABNORMALITY. PER [facility] VIA FAX @ [phone] Reviewed: Reviewed by Me Departure Impression Impression: Primary Impression: Post-menopausal bleeding Additional Impressions: SUSPECTED UTERINE MASS UTI (urinary tract infection) POST MENOPAUSAL VAGINAL BLEEDING Disposition: 03 [facility] Condition: Stable Departure-Patient Inst. Referrals: HUBER LEAHY MD (PCP/Family) Primary Care Physician Patient Instructions: Urinary Tract Infection, Adult (DC) Add. Discharge Instructions: FOLLOW UP WITH DR. LEAHY ON FRIDAY FOR FURTHER CARE CONTINUE YOUR MEDICATIONS PRESCRIBED All discharge instructions reviewed with patient and/or family. Voiced understanding. Scripts Nitrofurantoin Monohyd/M-Cryst (Macrobid 100 mg Capsule) 100 Mg Capsule 100 MG PO BID, #20 CAP Prov: BALAJI KERR DO 04/26/17 BALAJI KERR DO Apr 26, 2017 04:42
[2017-04-26] MEDS ORDERED: NITR-65 PO ×2 (05:03→05:39)
[2017-04-26 05:41] VITALS: BP 155/73
--- NOTE | 2017-04-26 09:11 | Diagnostic Imaging Report ---
PROCEDURE: CT abdomen and pelvis with contrast. TECHNIQUE: Multiple contiguous axial images were obtained through the abdomen and pelvis after administration of intravenous contrast. INDICATION: Vaginal bleeding FINDINGS: There is minimal atelectasis in the lung bases. There is mild diffuse hepatic steatosis. No focal hepatic mass is seen. The portal vein enhances normally. The gallbladder, pancreas, spleen, adrenal glands and kidneys appear unremarkable. There is a large amount stool in the colon. No evidence of appendicitis or diverticulitis. The ureters and bladder appear grossly unremarkable. There is a 5.1 cm x 3.3 cm heterogeneous fluid collection within the uterus with some irregular areas of high density. This may represent clot within the endometrium. Underlying endometrial mass would be difficult to entirely exclude. Pelvic ultrasound may be of additional benefit. No adnexal mass is seen. There is no free fluid, free air or adenopathy. There is atherosclerosis and ectasia of the abdominal aorta. There is levoscoliosis and degenerative change in the spine. IMPRESSION: 1. The uterus is abnormal with a large irregular heterogeneous fluid collection within the endometrium possibly related to blood clot. Underlying endometrial mass difficult to entirely exclude. Pelvic ultrasound would be of additional benefit. 2. There is a large amount stool in the colon. 3. Mild diffuse hepatic steatosis. Agree with [facility] interpretation. Dictated by: Dictated on workstation # [id number]
== END 2017-04-26 05:41 ==
LOC: EDUNIT# 01:41 → ER 01:43
DX: N95.0 Postmenopausal bleeding (principal); N39.0 Urinary tract infection, site not specified; E78.00 Pure hypercholesterolemia, unspecified; I10 Essential (primary) hypertension; F03.90 Unspecified dementia, unspecified severity, without behavioral disturbance, psychotic disturbance, mood disturbance, and anxiety; E03.9 Hypothyroidism, unspecified; Z79.82 Long term (current) use of aspirin
CPT/HCPCS: 36415; 74177; 80053; 81000; 85025; 85610; 85730; 87088; 99283

== ENCOUNTER → 2017-04-29 | Outpatient (CLI) | payer MEDICARE, OTHER ==
[~2017-04-29] MED LIST changes: +NITR-65 PO
--- NOTE | 2017-04-29 13:47 | Diagnostic Imaging Report ---
INDICATION: Vaginal bleeding. COMPARISON: CT abdomen and pelvis from 04/26/2017. TECHNIQUE: Transvaginal grayscale imaging of the pelvis was performed. FINDINGS: The uterus measures 6.1 x 4.2 x 2.7 cm. There is abnormal thickening of the endometrial canal which is filled with heterogeneous avascular debris. The debris and endometrium measure approximately 1.5 cm in thickness. The ovaries are not visualized due to surrounding bowel gas. No suspicious adnexal mass or free fluid. IMPRESSION: Abnormal thickening of the endometrium with avascular debris throughout the endometrial canal. Findings may relate to blood products. Endometrial neoplasm could give this appearance and if not already performed, gynecology consultation is advised. Dictated by: Dictated on workstation # [id number]
== END ==
LOC: RAD 12:38
PROVIDERS: ATTEND Nurse Practitioner Family
DX: R93.8 Abnormal findings on diagnostic imaging of other specified body structures (principal)
CPT/HCPCS: 76830; 76856

== ENCOUNTER → 2017-06-05 | Outpatient (CLI) | payer MEDICARE, OTHER ==
--- NOTE | 2017-06-05 15:16 | Diagnostic Imaging Report ---
Transabdominal and transvaginal pelvic ultrasound. INDICATION: Follow-up endometrial thickening. FINDINGS: The uterus is 4.1 x 4.1 x 2.8 cm in size. The endometrial stripe is not well delineated on this exam. The ovaries are obscured by bowel gas. IMPRESSION: The endometrial stripe is not well delineated on this exam. Previously, it was 1.5 cm in thickness based on study of 04/29/2017. Follow-up studies or gynecologic evaluation is suggested. Report faxed to Bibi Arora APRN at 3:15 p.m. 06/05/2017/kayode Dictated by: Dictated on workstation # [id number]
== END ==
LOC: RAD 10:49
PROVIDERS: ATTEND Nurse Practitioner Family
DX: R93.8 Abnormal findings on diagnostic imaging of other specified body structures (principal)
CPT/HCPCS: 76830; 76856

== ENCOUNTER → 2017-10-20 | Outpatient (CLI) | payer MEDICARE, OTHER ==
--- NOTE | 2017-10-20 12:30 | Diagnostic Imaging Report ---
CLINICAL INDICATION: Patient with history of endometrial thickening and vaginal bleeding. Patient had device inserted in the uterus for cancer treatment since last scan. EXAM: Trans-vaginal pelvic ultrasound. COMPARISON: Ultrasound of the pelvis dated 06/05/2017. FINDINGS AND IMPRESSION: 1: Of note, there is interval placement of a hyperechoic area, with posterior shadowing, within the endometrium which obscures the region and may related to treatment changes. Visualization of the endometrium and evaluation of the endometrial thickness is unable to be accurately evaluate. 2: The uterus again appears heterogeneous and measures grossly 5.4 cm x 4.8 cm x 2.6 cm compared to the prior study measured at 4.1 cm x 4.1 cm x 2.8 cm. Dictated by: Dictated on workstation # [id number]
--- NOTE | 2018-01-19 13:09 | Diagnostic Imaging Report ---
INDICATION: Endometrial carcinoma. PROCEDURE: US PELVIC (NON OB) TECHNIQUE: Multiple Real-time grayscale images were obtained over the pelvis in various projections transvaginally. FINDINGS: The uterus measures 6.5 x 4.9 x 4.1 cm. There appear to be uterine fibroids present. On the left, a fibroid is approximately 1.3 cm. On the right, a fibroid is approximately 2.2 x 2.7 cm. The endometrium is poorly defined. There is poor differentiation between the endometrium and adjacent myometrium. Trace fluid in the endometrial canal is seen. There appears to be a device within the endometrial canal as well. The overall thickness is approximately 8 mm. The ovaries are not visualized. No adnexal mass or free fluid is seen. IMPRESSION: Transvaginal study, as described. Dictated by: Dictated on workstation # [id number]
== END ==
LOC: RAD 09:52
PROVIDERS: ATTEND Student in an Organized Health Care Education/Training Program
DX: C54.1 Malignant neoplasm of endometrium (principal)
CPT/HCPCS: 76830

== ENCOUNTER 2017-11-11 06:39 | Emergency (ER) | payer MEDICARE, OTHER ==
[~2017-11-11] VITALS: Ht 162.6 cm; Wt 65.8 kg
[2017-11-11] MEDS ORDERED: ONDANSETRON 4 MG (ZOFRAN) ORAL DISSOLVE TAB SL STA (06:49)
[2017-11-11 06:57] LABS: BASOPHILS % (AUTO) 1 % (0-10); EOSINOPHILS # (AUTO) 0.1 10^3/uL (0.0-0.3); EOSINOPHILS % (AUTO) 1 % (0-10); HEMATOCRIT 34 % (35-52); HEMOGLOBIN 11.2 G/DL (11.5-16.0); LYMPHOCYTES # (AUTO) 1.6 X 10^3 (1.0-4.0); LYMPHOCYTES % (AUTO) 24 % (12-44); MEAN CORPUSCULAR HEMOGLOBIN 33 PG (25-34); MEAN CORPUSCULAR HGB CONC 33 G/DL (32-36); MEAN CORPUSCULAR VOLUME 97 FL (80-99); MEAN PLATELET VOLUME 9.5 FL (7.4-10.4); MONOCYTES # (AUTO) 0.5 X 10^3 (0.0-1.0); MONOCYTES % (AUTO) 7 % (0-12); NEUTROPHILS # (AUTO) 4.4 X 10^3 (1.8-7.8); NEUTROPHILS % (AUTO) 67 % (42-75); PLATELET COUNT 328 10^3/uL (130-400); RED BLOOD COUNT 3.44 10^6/uL (4.35-5.85); RED CELL DISTRIBUTION WIDTH 14.3 % (10.0-14.5); WHITE BLOOD COUNT 6.6 10^3/uL (4.3-11.0)
[2017-11-11] MEDS ORDERED: ASPIRIN 81 MG CHEW (CHILDREN'S ASA) PO ONE (07:00)
[2017-11-11 07:06] LABS: PROTHROMBIN TIME PATIENT 13.5 SEC (12.2-14.7)
--- NOTE | 2017-11-11 07:07 | Diagnostic Imaging Report ---
INDICATION: Chest pain, nausea and emesis. EXAMINATION: Portable upright AP view of the chest is obtained with comparison made to study of 08/04/2016. FINDINGS: Heart size and pulmonary vascularity are within normal limits, and the lungs are clear, bilaterally. IMPRESSION: Unremarkable chest. Dictated by: Dictated on workstation # [id number]
[2017-11-11 07:15] LABS: ALANINE AMINOTRANSFERASE 6 U/L (0-55); ALBUMIN 3.7 GM/DL (3.2-4.5); ALKALINE PHOSPHATASE 65 U/L (40-136); BILIRUBIN,TOTAL 0.3 MG/DL (0.1-1.0); BUN/CREATININE RATIO 13; CALCIUM 8.7 MG/DL (8.5-10.1); CARBON DIOXIDE 24 MMOL/L (21-32); CHLORIDE 105 MMOL/L (98-107); CREATININE SERUM 0.84 MG/DL (0.60-1.30); GFR ESTIMATED > 60; GLUCOSE 120 MG/DL (70-105); LIPASE 39 U/L (8-78); MAGNESIUM 2.1 MG/DL (1.8-2.4); POTASSIUM 3.8 MMOL/L (3.6-5.0); SODIUM 137 MMOL/L (135-145); TOTAL PROTEIN 6.3 GM/DL (6.4-8.2)
--- NOTE | 2017-11-11 07:48 | ED Chest Pain ---
General Chief Complaint: Chest Pain Stated Complaint: N/V/CP Nursing Triage Note: BROUGHT IN BY [facility] FOR CP, N/V/WEAKNESS Nursing Sepsis Screen: No Definite Risk Source: patient Exam Limitations: no limitations History of Present Illness Date Seen by Provider: November 11, 2017 Time Seen by Provider: 06:45 Initial Comments Here with report of nausea, vomiting and a vague report of chest pain. Wasn't able to describe that well. Patient has dementia. Denies any serious medical history. Woke up one to 2 hours ago with the nausea and had a few episodes of vomiting apparently. Chest pain she describes as lower chest near the epigastrium. Unable to describe the type of pain and states that it's gone now. States that she feels better now. 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: Yes Associated Symptoms: No abdominal pain, No back pain, No fever/chills; nausea/ vomiting; No shortness of breath, No weakness Allergies and Home Medications Allergies Coded Allergies: No Allergy Information Available (Unverified , 05/27/16) Home Medications Acetaminophen 325 Mg Tablet, 650 MG PO Q4H PRN for MILD PAIN Prescribed by: SATYA SIDDIQUI on 08/08/16 09 Amlodipine Besylate 5 Mg Tablet, 5 MG PO DAILY Prescribed by: SATYA SIDDIQUI on 08/08/16916 Aspirin 81 Mg Tab.chew, 81 MG PO DAILY, (Reported) Levothyroxine Sodium 25 Mcg Tablet, 25 MCG PO DAILY, (Reported) Lisinopril 20 Mg Tablet, 20 MG PO DAILY, (Reported) Nitrofurantoin Monohyd/M-Cryst 100 Mg Capsule, 100 MG PO BID Prescribed by: BALAJI KERR on 04/26/17 7545 Patient Home Medication List Home Medication List Reviewed: Yes Review of Systems Constitutional: see HPI; No chills, No fever EENTM: No Symptoms Reported Respiratory: No Symptoms Reported; Denies Shortness of Air, Denies Wheezing Cardiovascular: Chest Pain; Denies Edema, Denies Irregular Heart Rate Gastrointestinal: Denies Abdominal Pain, Denies Constipated; Nausea, Vomiting Genitourinary: No Symptoms Reported Musculoskeletal: no symptoms reported All Other Systems Reviewed Negative Unless Noted: Yes Past Nrmswrr-Scmscg-Beaqqc Hx Past Med/Social Hx: Reviewed Nursing Past Med/Soc Hx Patient Social History Alcohol Use: Denies Use Recreational Drug Use: No Smoking Status: Never a Smoker 2nd Hand Smoke Exposure: No Recent Foreign Travel: No Contact w/Someone Who Travel: No Recent Infectious Disease Expo: No Recent Hopitalizations: No Immunizations Up To Date Tetanus Booster (TDap): Unknown Seasonal Allergies Seasonal Allergies: No Past Medical History Surgeries: No Respiratory: No Cardiac: Yes High Cholesterol, Hypertension Neurological: Yes Dementia : No Female 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 No Pertinent Family Hx Physical Exam Vital Signs Vital Signs - First Documented Capillary Refill : Less Than 3 Seconds General Appearance: No Apparent Distress, WD/WN HEENT: PERRL/EOMI, Pharynx Normal Neck: Non Tender, Supple Respiratory: Lungs Clear, Normal Breath Sounds Cardiovascular: Regular Rate, Rhythm, No Murmur Gastrointestinal: Normal Bowel Sounds, Non Tender, Soft Extremity: Normal Range of Motion, Non Tender Neurologic/Psychiatric: Alert, Oriented x3 Skin: Normal Color, Warm/Dry Progress/Results/Core Measures Results/Orders Lab Results Laboratory Tests Test 11/11/17 06:45 11/11/17 10:00 Range/Units White Blood Count 6.6 4.3-11.0 10^3/uL Red Blood Count 3.44 L 4.35-5.85 10^6/uL Hemoglobin 11.2 L 11.5-16.0 G/DL Hematocrit 34 L 35-52 % Mean Corpuscular Volume 97 80-99 FL Mean Corpuscular Hemoglobin 33 25-34 PG Mean Corpuscular Hemoglobin Concent 33 32-36 G/DL Red Cell Distribution Width 14.3 10.0-14.5 % Platelet Count 328 130-400 10^3/uL Mean Platelet Volume 9.5 7.4-10.4 FL Neutrophils (%) (Auto) 67 42-75 % Lymphocytes (%) (Auto) 24 12-44 % Monocytes (%) (Auto) 7 0-12 % Eosinophils (%) (Auto) 1 0-10 % Basophils (%) (Auto) 1 0-10 % Neutrophils # (Auto) 4.4 1.8-7.8 X 10^3 Lymphocytes # (Auto) 1.6 1.0-4.0 X 10^3 Monocytes # (Auto) 0.5 0.0-1.0 X 10^3 Eosinophils # (Auto) 0.1 0.0-0.3 10^3/uL Basophils # (Auto) 0.0 0.0-0.1 10^3/uL Prothrombin Time 13.5 12.2-14.7 SEC INR Comment 1.0 0.8-1.4 Activated Partial Thromboplast Time 27 24-35 SEC Sodium Level 137 135-145 MMOL/L Potassium Level 3.8 3.6-5.0 MMOL/L Chloride Level 105 98-107 MMOL/L Carbon Dioxide Level 24 21-32 MMOL/L Anion Gap 8 5-14 MMOL/L Blood Urea Nitrogen 11 7-18 MG/DL Creatinine 0.84 0.60-1.30 MG/DL Estimat Glomerular Filtration Rate > 60 BUN/Creatinine Ratio 13 Glucose Level 120 H 70-105 MG/DL Calcium Level 8.7 8.5-10.1 MG/DL Magnesium Level 2.1 1.8-2.4 MG/DL Total Bilirubin 0.3 0.1-1.0 MG/DL Aspartate Amino Transf (AST/SGOT) 12 5-34 U/L Alanine Aminotransferase (ALT/SGPT) 6 0-55 U/L Alkaline Phosphatase 65 40-136 U/L Myoglobin 37.0 51.9 10.0-92.0 NG/ML Troponin I < 0.30 < 0.30 <0.30 NG/ML Total Protein 6.3 L 6.4-8.2 GM/DL Albumin 3.7 3.2-4.5 GM/DL Lipase 39 8-78 U/L My Orders Orders - CESILIA PEREZ MD Cbc With Automated Diff (11/11/17 06:49) Magnesium (11/11/17 06:49) Chest 1 View, Ap/Pa Only (11/11/17 06:49) Ekg Tracing (11/11/17 06:49) Cardiac Profile 1 (11/11/17 06:49) Comprehensive Metabolic Panel (11/11/17 06:49) Myoglobin Serum (11/11/17 06:49) Protime With Inr (11/11/17 06:49) Partial Thromboplastin Time (11/11/17 06:49) O2 (11/11/17 06:49) Monitor-Rhythm Ecg Trace Only (11/11/17 06:49) Lipid Panel (11/12/17 06:00) Aspirin Chewable Tablet (Baby Aspirin Ch (11/11/17 07:00) Saline Lock/Iv-Start (11/11/17 06:49) Lipase (11/11/17 06:49) Ondansetron Oral Dissolve Tab (Zofran (11/11/17 06:49) Troponin I (11/11/17 09:26) Myoglobin Serum (11/11/17 09:26) Ekg Tracing (11/11/17 09:26) Medications Given in ED Current Medications Medications Dose Ordered Sig/Day Route Start Time Stop Time Status Last Admin Dose Admin Aspirin 324 mg ONCE ONCE PO 11/11/17 07:00 11/11/17 07:01 DC 11/11/17 06:56 324 MG Vital Signs/I&O 11/11/17 11/11/17 11/11/17 11/11/17 06:40 06:40 06:40 06:56 Temp 98.1 98.1 Pulse 57 Resp 17 B/P (MAP) 141/67 (91) Pulse Ox 98 98 O2 Delivery Room Air Room Air Room Air Blood Pressure Mean: 91 Progress Progress Note : Progress Note Seen and evaluated. IV, labs, EKG ordered. ASA 324 mg by mouth ordered. Zofran 4 mg IV ordered. Monitor patient. 0730: No acute findings. We will continue to monitor the patient for 2 hours and recheck labs and EKG. If negative, will discharge back to halfway. 1057: Repeat EKG and labs are okay. Patient comfortable and without distress throughout the ED visit. Discharge back to assisted living. Patient verbalize understanding instructions and agreement with plan. Initial ECG Impression Date: November 11, 2017 Initial ECG Impression Time: 06:59 Initial ECG Rate: 56 Initial ECG Rhythm: Normal Sinus Initial ECG Intervals: Normal Initial ECG Impression: Normal Initial ECG Comparisson: No Previous ECG Available Comment Sinus rhythm with normal axis. No evidence of ST elevation PR. No previous available for comparison. Interpreted by me. EKG : EKG Time: 09:33 Rate: 60 Rhythm: Normal Sinus Intervals: Normal ECG Comparisson: Unchanged ECG Impression: Normal Comment Sinus rhythm with normal axis. Artifact noted on EKG. No evidence of ST elevation PR. Interpreted by me. Diagnostic Imaging Diagonstic Imaging: Xray Plain Films/CT/US/NM/MRI: chest Comments NAME: ENRIQUETA PIRES [facility] REC#: [id number] PT STATUS: REG ER : 1935 PHYSICIAN: CESILIA PEREZ MD ADMIT DATE: 11/11/17/ER Signed Date of Exam: 11/11/17 CHEST 1 VIEW, AP/PA ONLY INDICATION: Chest pain, nausea and emesis. EXAMINATION: Portable upright AP view of the chest is obtained with comparison made to study of 08/04/2016. FINDINGS: Heart size and pulmonary vascularity are within normal limits, and the lungs are clear, bilaterally. IMPRESSION: Unremarkable chest. Dictated by: Dictated on workstation # [id number] Dict: 11/11/17703 Trans: 11/11/17729 Interpreted by: TABATHA MORALES MD Electronically signed by: TABATHA MORALES MD 11/11/17729 Reviewed: Reviewed by Me Departure Impression Primary Impression: Epigastric abdominal pain Additional Impression: Nausea and vomiting Qualified Codes: R11.2 - Nausea with vomiting, unspecified Disposition: 01 HOME, SELF-CARE Condition: Improved Departure-Patient Inst. Decision time for Depature: 11:01 Referrals: NO,LOCAL PHYSICIAN (PCP/Family) Primary Care Physician Patient Instructions: Acute Abdomen (Belly Pain), Adult (DC), Chest Pain (DC), Nausea and Vomiting, Adult (DC) Add. Discharge Instructions: All discharge instructions reviewed with patient and/or family. Voiced understanding. Continue home medications as directed. Use ondansetron that is prescribed as needed for nausea and vomiting. Follow-up with your DrYoselyn in a few days for recheck. Return for worse pain, fever, vomiting, weakness, breathing problems or other concerns as needed. CESILIA PEREZ MD November 11, 2017 07:48
[2017-11-11 10:37] LABS: MYOGLOBIN SERUM 51.9 NG/ML (10.0-92.0)
[2017-11-11 11:07] VITALS: BP 141/67
== END 2017-11-11 11:10 | disposition home or self-care (01) ==
LOC: EDUNIT# 06:39 → ER 06:40
DX: R11.2 Nausea with vomiting, unspecified (principal); R10.13 Epigastric pain; F03.90 Unspecified dementia, unspecified severity, without behavioral disturbance, psychotic disturbance, mood disturbance, and anxiety; E78.00 Pure hypercholesterolemia, unspecified; I10 Essential (primary) hypertension; Z79.82 Long term (current) use of aspirin
CPT/HCPCS: 36415; 71045; 80053; 83690; 83735; 83874; 84484; 85025; 85610; 85730; 93005; 93041

== ENCOUNTER → 2018-01-19 | Outpatient (CLI) | payer MEDICARE, OTHER ==
--- NOTE | 2018-02-09 14:36 | RADIOLOGY REPORT ---
NAME: ENRIQUETA PIRES [facility] REC#: [id number] PT STATUS: REG CLI : 1935 PHYSICIAN: SALOMÓN SHIPLEY MD ADMIT DATE: 10/20/17/RAD CORRECTED Signed Date of Exam:01/19/18 US NON OB TRANSVAGINAL [id number] INDICATION: Endometrial carcinoma. PROCEDURE: US PELVIC (NON OB) TECHNIQUE: Multiple Real-time grayscale images were obtained over the pelvis in various projections transvaginally. FINDINGS: The uterus measures 6.5 x 4.9 x 4.1 cm. There appear to be uterine fibroids present. On the left, a fibroid is approximately 1.3 cm. On the right, a fibroid is approximately 2.2 x 2.7 cm. The endometrium is poorly defined. There is poor differentiation between the endometrium and adjacent myometrium. Trace fluid in the endometrial canal is seen. There appears to be a device within the endometrial canal as well. The overall thickness is approximately 8 mm. The ovaries are not visualized. No adnexal mass or free fluid is seen. IMPRESSION: Transvaginal study, as described. Dictated by: Dictated on workstation # [id number] Dict: 01/19/18 1123 Trans: 01/19/18 1619 [id number] Interpreted by: MATTI ALANIS MD Electronically signed by: MATTI ALANIS MD 01/19/18 1619 MTDD
== END ==
LOC: RAD 10:00
PROVIDERS: ATTEND Student in an Organized Health Care Education/Training Program
DX: C54.1 Malignant neoplasm of endometrium (principal)
CPT/HCPCS: 76830

== ENCOUNTER 2018-03-13 08:04 | Emergency (ER) | payer MEDICARE, OTHER ==
[~2018-03-13] VITALS: Ht 157.5 cm; Wt 63.5 kg
[~2018-03-13 08:04] MED LIST changes: +CEPH-507 PO
[2018-03-13] MEDS ORDERED: LACTATED RINGERS 1,000 ML IV ONE (08:07)
--- NOTE | 2018-03-13 08:12 | ED Neurological Problem ---
General Stated Complaint: SEIZURE Source: EMS, longterm records, old records Exam Limitations: other (PT WITH DEMENTIA AND IS UNABLE TO GIVE ANY INFORMATION ) History of Present Illness Date Seen by Provider: Mar 13, 2018 Time Seen by Provider: 07:59 Initial Comments PT ARRIVES VIA EMS FROM [facility] PT WAS EATING BREAKFAST AND HAD A SEIZURE, LASTING LESS THAN A MINUTE PT VOMITED AFTER SEIZURE + INCONTINENCE OF BOWEL/ BLADDER NO INJURY EMS REPORT THAT PT HAS HISTORY OF SEIZURES AND LAST SEIZURE WAS APPROXIMATELY A MONTH AGO. PT STATES SHE FEELS FINE PCP: DR. LEAHY Allergies and Home Medications Allergies Coded Allergies: No Allergy Information Available (Unverified , 05/27/16) Home Medications Acetaminophen 325 Mg Tablet, 650 MG PO Q4H PRN for MILD PAIN Prescribed by: SATYA SIDDIQUI on 08/08/16 0910 Amlodipine Besylate 5 Mg Tablet, 5 MG PO DAILY Prescribed by: SATYA SIDDIQUI on 08/08/16 0917 Aspirin 81 Mg Tab.chew, 81 MG PO DAILY, (Reported) Levothyroxine Sodium 25 Mcg Tablet, 25 MCG PO DAILY, (Reported) Lisinopril 20 Mg Tablet, 20 MG PO DAILY, (Reported) Nitrofurantoin Monohyd/M-Cryst 100 Mg Capsule, 100 MG PO BID Prescribed by: BALAJI KERR on 04/26/17 0529 Patient Home Medication List Home Medication List Reviewed: Yes Review of Systems Review of Systems Constitutional: see HPI Respiratory: no symptoms reported Cardiovascular: no symptoms reported Gastrointestinal: see HPI Genitourinary: see HPI Musculoskeletal: no symptoms reported Skin: no symptoms reported Psychiatric/Neurological: See HPI, Tonic Clonic Seizures Endocrine: No Symptoms Reported Hematologic/Lymphatic: No Symptoms Reported Past Abrgmjd-Odryzn-Srcvkf Hx Past Med/Social Hx: Reviewed Nursing Past Med/Soc Hx Patient Social History 2nd Hand Smoke Exposure: No Recent Hopitalizations: No Immunizations Up To Date Tetanus Booster (TDap): Unknown Seasonal Allergies Seasonal Allergies: No Past Medical History Surgeries: Yes (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 AT ) Respiratory: No Cardiac: Yes High Cholesterol, Hypertension Neurological: Yes Dementia Reproductive Disorders: Yes (UTERINE CANCER) 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 No Pertinent Family Hx Physical Exam Vital Signs Capillary Refill : Height, Weight, BMI Height: 5'2.00" Weight: 140lbs. 0oz. [id number]; 25.2 BMI Method:Estimated General Appearance: WD/WN, no apparent distress, other (MILDLY LETHARGIC) HEENT: normal ENT inspection Neck: normal inspection Respiratory: normal breath sounds Cardiovascular: normal peripheral pulses, regular rate, rhythm, no murmur Peripheral Pulses: 2+ Dorsalis Pedis (R), 2+ Left Dors-Pedis (L) Gastrointestinal: non tender, soft Neurologic/Psychiatric: frit coater II-XII nml as tested, no motor/sensory deficits, alert, other (MILDLY LETHARGIC, PT WITH DEMENTIA/POOR MEMORY, BUT ORIENTED TO PERSON, KNOWS IS IN HOSPITAL. CONFUSED TO TIME AND SITUATION. ) Motor/Sensory: no motor deficit, no sensory deficit Skin: normal color, warm/dry Progress/Results/Core Measures Results/Orders Lab Results Laboratory Tests Test 03/13/18 08:20 03/13/18 09:15 Range/Units White Blood Count 8.4 4.3-11.0 10^3/uL Red Blood Count 3.57 L 4.35-5.85 10^6/uL Hemoglobin 11.8 11.5-16.0 G/DL Hematocrit 35 35-52 % Mean Corpuscular Volume 97 80-99 FL Mean Corpuscular Hemoglobin 33 25-34 PG Mean Corpuscular Hemoglobin Concent 34 32-36 G/DL Red Cell Distribution Width 13.6 10.0-14.5 % Platelet Count 450 H 130-400 10^3/uL Mean Platelet Volume 8.9 7.4-10.4 FL Neutrophils (%) (Auto) 76 H 42-75 % Lymphocytes (%) (Auto) 13 12-44 % Monocytes (%) (Auto) 9 0-12 % Eosinophils (%) (Auto) 2 0-10 % Basophils (%) (Auto) 0 0-10 % Neutrophils # (Auto) 6.4 1.8-7.8 X 10^3 Lymphocytes # (Auto) 1.1 1.0-4.0 X 10^3 Monocytes # (Auto) 0.8 0.0-1.0 X 10^3 Eosinophils # (Auto) 0.1 0.0-0.3 10^3/uL Basophils # (Auto) 0.0 0.0-0.1 10^3/uL Prothrombin Time 12.5 12.2-14.7 SEC INR Comment 0.9 0.8-1.4 Activated Partial Thromboplast Time 25 24-35 SEC Sodium Level 134 L 135-145 MMOL/L Potassium Level 3.7 3.6-5.0 MMOL/L Chloride Level 102 98-107 MMOL/L Carbon Dioxide Level 21 21-32 MMOL/L Anion Gap 11 5-14 MMOL/L Blood Urea Nitrogen 12 7-18 MG/DL Creatinine 0.90 0.60-1.30 MG/DL Estimat Glomerular Filtration Rate 60 BUN/Creatinine Ratio 13 Glucose Level 99 70-105 MG/DL Calcium Level 9.3 8.5-10.1 MG/DL Corrected Calcium 9.6 8.5-10.1 MG/DL Magnesium Level 2.2 1.8-2.4 MG/DL Total Bilirubin 0.3 0.1-1.0 MG/DL Aspartate Amino Transf (AST/SGOT) 16 5-34 U/L Alanine Aminotransferase (ALT/SGPT) 14 0-55 U/L Alkaline Phosphatase 73 40-136 U/L Troponin I < 0.30 <0.30 NG/ML Total Protein 6.5 6.4-8.2 GM/DL Albumin 3.6 3.2-4.5 GM/DL Amylase Level 482 H 25-125 U/L Lipase 2464 H 8-78 U/L TSH [place] Testing 2.50 0.35-4.94 UIU/ML Urine Color YELLOW Urine Clarity CLEAR Urine pH 5 5-9 Urine Specific [place] 1.015 L 1.016-1.022 Urine Protein 1+ H NEGATIVE Urine Glucose (UA) NEGATIVE NEGATIVE Urine Ketones NEGATIVE NEGATIVE Urine Nitrite NEGATIVE NEGATIVE Urine Bilirubin NEGATIVE NEGATIVE Urine Urobilinogen 1 NORMAL MG/DL Urine Leukocyte Esterase 1+ H NEGATIVE Urine RBC (Auto) 1+ H NEGATIVE Urine RBC RARE /HPF Urine WBC RARE /HPF Urine Squamous Epithelial Cells 2-5 /HPF Urine Crystals NONE /LPF Urine Bacteria NEGATIVE /HPF Urine Casts PRESENT /LPF Urine Hyaline Casts RARE /LPF Urine Mucus SMALL H /LPF Urine Culture Indicated NO My Orders Orders - SADIQ KERRKeren Beckman DO Saline Lock/Iv-Start (03/13/18 08:07) Ekg Tracing (03/13/18 08:07) Monitor-Rhythm Ecg Trace Only (03/13/18 08:07) Straight Cath For Spec.-Adult (03/13/18 08:07) Ct Head Wo (03/13/18 08:07) Amylase (03/13/18 08:07) Cbc With Automated Diff (03/13/18 08:07) Comprehensive Metabolic Panel (03/13/18 08:07) Lipase (03/13/18 08:07) Magnesium (03/13/18 08:07) Protime With Inr (03/13/18 08:07) Partial Thromboplastin Time (03/13/18 08:07) Thyroid Analyzer (03/13/18 08:07) Troponin I (03/13/18 08:07) Ua Culture If Indicated (03/13/18 08:07) Chest 1 View, Ap/Pa Only (03/13/18 08:07) Saline Lock/Iv-Start (03/13/18 08:07) Lactated Ringers (Lr 1000 Ml Iv Solution (03/13/18 08:07) Ondansetron Injection (Zofran Injectio (03/13/18 08:15) Ct Chest/Abdomen/Pelvis Wo (03/13/18 09:04) Iv Push Healthcare Architect Ed (03/13/18 ) Progress Progress Note : Progress Note NO DETERIORATION IN PT'S CONDITION DURING ER STAY Initial ECG Impression Time: 08:56 Initial ECG Rate: 56 Initial ECG Rhythm: Normal Sinus Diagnostic Imaging Comments CXR--NO ACUTE PROCESS CT HEAD--NO ACUTE PROCESS, CHRONIC AGE-RELATED CHANGES CT CHEST/ABDOMEN/PELVIS--NO ACUTE PROCESS, AGE-RELATED CHANGES, CHRONIC COMPRESSION FX L1 ALL PER RADIOLOGIST REPORTS AT 1035 Reviewed: Reviewed by Me Departure Communication (Admissions) 1040--SPOKE WITH DR. LEAHY, HE REPORTS PT DOES NOT HAVE HISTORY OF SEIZURES , PER HIS RECOLLECTION. PT IS CURRENTLY BEING TREATED FOR UTERINE CANCER AT 1052--CALLED [facility], WILL CALL BACK 11:00--SPOKE WITH SON AND HE ALSO CONFIRMED THAT PT HAD NO HISTORY OF SEIZURES. WILL PLAN ON TRANSFERRING TO . PT HAS FOLLOW UP APPOINTMENT AT IN MAY FOR FOLLOW UP ON UTERINE CANCER 1124--DR. KAILASH KOHLI ACCEPTS PT FOR TRANSFER/ADMIT TO Impression Primary Impression: New onset seizure Additional Impressions: Acute pancreatitis CURRENT TREATMENT FOR UTERINE CANCER Dementia Disposition: XF [facility] HOSP Condition: Stable Departure-Patient Inst. Referrals: HUBER LEAHY MD (PCP/Family) Primary Care Physician BALAJI KERR DO Mar 13, 2018 08:12
[2018-03-13] MEDS ORDERED: ONDANSETRON 4 MG/2 ML (SDV) Z0FRAN IVP ONE (08:15)
[2018-03-13 08:29] LABS: BASOPHILS % (AUTO) 0 % (0-10); EOSINOPHILS # (AUTO) 0.1 10^3/uL (0.0-0.3); EOSINOPHILS % (AUTO) 2 % (0-10); HEMATOCRIT 35 % (35-52); HEMOGLOBIN 11.8 G/DL (11.5-16.0); LYMPHOCYTES # (AUTO) 1.1 X 10^3 (1.0-4.0); LYMPHOCYTES % (AUTO) 13 % (12-44); MEAN CORPUSCULAR HEMOGLOBIN 33 PG (25-34); MEAN CORPUSCULAR HGB CONC 34 G/DL (32-36); MEAN CORPUSCULAR VOLUME 97 FL (80-99); MEAN PLATELET VOLUME 8.9 FL (7.4-10.4); MONOCYTES # (AUTO) 0.8 X 10^3 (0.0-1.0); MONOCYTES % (AUTO) 9 % (0-12); NEUTROPHILS # (AUTO) 6.4 X 10^3 (1.8-7.8); NEUTROPHILS % (AUTO) 76 % (42-75); PLATELET COUNT 450 10^3/uL (130-400); RED BLOOD COUNT 3.57 10^6/uL (4.35-5.85); RED CELL DISTRIBUTION WIDTH 13.6 % (10.0-14.5); WHITE BLOOD COUNT 8.4 10^3/uL (4.3-11.0)
[2018-03-13 08:46] LABS: INR 0.9 (0.8-1.4); PROTHROMBIN TIME PATIENT 12.5 SEC (12.2-14.7)
--- NOTE | 2018-03-13 08:46 | Diagnostic Imaging Report ---
INDICATION: Seizures Frontal chest obtained 8:34 hours am, and compared to 11/11/2017. Heart and mediastinal silhouette are normal in appearance. The lungs appear clear. There is no pneumothorax or pleural fluid. IMPRESSION: Negative chest with no change from 11/11/17. Dictated by: Dictated on workstation # [id number]
[2018-03-13 08:54] LABS: ALANINE AMINOTRANSFERASE 14 U/L (0-55); ALBUMIN 3.6 GM/DL (3.2-4.5); ALKALINE PHOSPHATASE 73 U/L (40-136); AMYLASE 482 U/L (25-125); BILIRUBIN,TOTAL 0.3 MG/DL (0.1-1.0); BUN/CREATININE RATIO 13; CALCIUM 9.3 MG/DL (8.5-10.1); CARBON DIOXIDE 21 MMOL/L (21-32); CHLORIDE 102 MMOL/L (98-107); GFR ESTIMATED 60; GLUCOSE 99 MG/DL (70-105); MAGNESIUM 2.2 MG/DL (1.8-2.4); POTASSIUM 3.7 MMOL/L (3.6-5.0); SODIUM 134 MMOL/L (135-145); TOTAL PROTEIN 6.5 GM/DL (6.4-8.2)
[2018-03-13 09:22] LABS: BILIRUBIN,URINE NEGATIVE (NEGATIVE); CLARITY,URINE CLEAR; COLOR,URINE YELLOW; GLUCOSE, URINE (UA) NEGATIVE (NEGATIVE); KETONES,URINE NEGATIVE (NEGATIVE); LEUKOCYTE ESTERASE ,URINE 1+ (NEGATIVE); NITRITE,URINE NEGATIVE (NEGATIVE); PH,URINE 5 (5-9); PROTEIN,URINE 1+ (NEGATIVE); UROBILINOGEN,URINE 1 MG/DL (NORMAL)
[2018-03-13 09:24] LABS: LIPASE 2464 U/L (8-78)
[2018-03-13 09:35] LABS: BACTERIA,URINE NEGATIVE /HPF; HYALINE CASTS, URINE RARE /LPF; RBC,URINE RARE /HPF; WBC,URINE RARE /HPF
--- NOTE | 2018-03-13 09:57 | Diagnostic Imaging Report ---
PROCEDURE: CT head without contrast. TECHNIQUE: Multiple contiguous axial images were obtained through the brain without the use of intravenous contrast. INDICATION: Seizure. COMPARISON: Comparison is made with prior head CT from 08/04/2016. FINDINGS: The ventricles and sulci are consistent with the patient's age. Moderate periventricular hypodensity is noted consistent with senescent change. No sulcal effacement is identified. There is no midline shift. No acute intra-axial or extra-axial hemorrhage is detected. The cisterns are patent. Visualized paranasal sinuses demonstrate trace fluid in bilateral maxillary sinuses. IMPRESSION: Senescent changes. No acute intracranial process is detected. Dictated by: Dictated on workstation # [id number]
--- NOTE | 2018-03-13 10:05 | Diagnostic Imaging Report ---
PROCEDURE: CT chest, abdomen, and pelvis without contrast. TECHNIQUE: Multiple contiguous axial images were obtained through the chest, abdomen, and pelvis without the use of intravenous contrast. INDICATION: Incontinence. Comparison is made with prior CT abdomen and pelvis from 04/26/2017. CT chest: No definite axillary lymphadenopathy is identified. Hilar and mediastinal evaluation is limited without intravenous contrast. No gross abnormality is identified. No pericardial or pleural fluid is detected. No pulmonary infiltrates, nodules or masses are seen. Small fluid collections are identified adjacent to both shoulders consistent with bursitis. IMPRESSION: Essentially unremarkable noncontrast CT of the chest. CT abdomen and pelvis: No discrete liver mass is identified. Gallbladder is unremarkable. Pancreas and spleen are unremarkable. No adrenal mass is detected. No renal calculi or hydronephrosis is identified. Aorta is calcified but nonaneurysmal. Small and large bowel loops are normal caliber. No obstruction is seen. There is no ascites. Visualized bladder is unremarkable. The uterus contains an IUD. Bony structures demonstrate severe lumbosacral scoliosis and spondylosis. There appears to be a chronic compression fracture deformity of L1 vertebral body. Spondylolisthesis of L4 on L5 is seen. There is multilevel facet degenerative change. IMPRESSION: 1. No acute feature in the abdomen or pelvis is identified. 2. Lumbosacral scoliosis and spondylosis as well as spondylolisthesis. Dictated by: Dictated on workstation # [id number]
[2018-03-13 12:10] VITALS: BP 106/55
[2018-03-13 16:10] VITALS: BP 101/87
== END 2018-03-13 13:40 | disposition short-term general hospital (02) ==
LOC: EDUNIT# 08:04 → ER 08:05
DX: R56.9 Unspecified convulsions (principal); F03.90 Unspecified dementia, unspecified severity, without behavioral disturbance, psychotic disturbance, mood disturbance, and anxiety; E78.00 Pure hypercholesterolemia, unspecified; I10 Essential (primary) hypertension; E03.9 Hypothyroidism, unspecified; Z79.82 Long term (current) use of aspirin
CPT/HCPCS: 36415; 51701; 70450; 71045; 71250; 74176; 80053; 81000; 82150; 83690; 83735; 84443; 84484; 85025; 85610; 85730; 93005; 93041; 96361; 96374

== ENCOUNTER 2018-04-19 09:56 | Emergency (ER) | payer MEDICARE, OTHER ==
[~2018-04-19] VITALS: Ht 160 cm; Wt 59.0 kg
[2018-04-19 10:00] VITALS: BP 112/54
[2018-04-19 10:16] LABS: BASOPHILS % (AUTO) 0 % (0-10); EOSINOPHILS # (AUTO) 0.1 10^3/uL (0.0-0.3); EOSINOPHILS % (AUTO) 2 % (0-10); HEMATOCRIT 31 % (35-52); HEMOGLOBIN 10.4 G/DL (11.5-16.0); LYMPHOCYTES # (AUTO) 1.4 X 10^3 (1.0-4.0); LYMPHOCYTES % (AUTO) 20 % (12-44); MEAN CORPUSCULAR HEMOGLOBIN 33 PG (25-34); MEAN CORPUSCULAR HGB CONC 34 G/DL (32-36); MEAN CORPUSCULAR VOLUME 98 FL (80-99); MEAN PLATELET VOLUME 9.4 FL (7.4-10.4); MONOCYTES % (AUTO) 13 % (0-12); NEUTROPHILS # (AUTO) 4.6 X 10^3 (1.8-7.8); NEUTROPHILS % (AUTO) 64 % (42-75); PLATELET COUNT 355 10^3/uL (130-400); RED BLOOD COUNT 3.14 10^6/uL (4.35-5.85); RED CELL DISTRIBUTION WIDTH 13.6 % (10.0-14.5); WHITE BLOOD COUNT 7.1 10^3/uL (4.3-11.0)
[2018-04-19 10:29] LABS: ALANINE AMINOTRANSFERASE 15 U/L (0-55); ALBUMIN 3.2 GM/DL (3.2-4.5); ALKALINE PHOSPHATASE 58 U/L (40-136); BILIRUBIN,TOTAL 0.4 MG/DL (0.1-1.0); BUN/CREATININE RATIO 26; CALCIUM 8.7 MG/DL (8.5-10.1); CARBON DIOXIDE 24 MMOL/L (21-32); CHLORIDE 102 MMOL/L (98-107); CREATININE SERUM 0.82 MG/DL (0.60-1.30); GFR ESTIMATED > 60; GLUCOSE 90 MG/DL (70-105); POTASSIUM 4.3 MMOL/L (3.6-5.0); SODIUM 134 MMOL/L (135-145)
[2018-04-19 10:31] LABS: BILIRUBIN,URINE NEGATIVE (NEGATIVE); CLARITY,URINE CLEAR; COLOR,URINE YELLOW; GLUCOSE, URINE (UA) NEGATIVE (NEGATIVE); KETONES,URINE NEGATIVE (NEGATIVE); LEUKOCYTE ESTERASE ,URINE NEGATIVE (NEGATIVE); NITRITE,URINE NEGATIVE (NEGATIVE); PH,URINE 8 (5-9); PROTEIN,URINE NEGATIVE (NEGATIVE); UROBILINOGEN,URINE NORMAL (NORMAL)
[2018-04-19 10:40] LABS: BACTERIA,URINE NEGATIVE /HPF; WBC,URINE 0-2 /HPF
--- NOTE | 2018-04-19 10:41 | Diagnostic Imaging Report ---
INDICATION: Lethargy. Comparison with 03/13/2018. FINDINGS: The lungs are well-aerated and free of infiltrate. Heart is not enlarged. There is no pulmonary edema or hilar adenopathy. No pneumothorax or pleural effusion. No bony abnormalities. IMPRESSION: Normal portable chest. Dictated by: Dictated on workstation # [id number]
[2018-04-19 10:49] LABS: FREE T4 (FREE THYROXINE) 0.76 NG/DL (0.70-1.48)
--- NOTE | 2018-04-19 10:54 | ED General ---
General Chief Complaint: General Problems/Pain Stated Complaint: WEAKNESS Nursing Triage Note: PT ARRIVED PER EMS FROM [facility], PT IS AWAKE AND PLEASANTLY CONFUSED. PT DENIES PAIN OR NAUSEA PT HAS SL IN PLACE #20 W NS INFUSING AT TKO. STAFF STATES PT LEANING TO R HAVING DIFF WALKING. Nursing Sepsis Screen: No Definite Risk Source of Information: Patient, EMS, [facility] Records, Old Records Exam Limitations: Other (dementia) History of Present Illness Date Seen by Provider: Apr 19, 2018 Time Seen by Provider: 09:57 Initial Comments This 83-year-old woman presents to the emergency room via EMS from [facility] assisted living where staff felt that she was more lethargic than usual today. She also had some bleeding from the vaginal area. Staff thought that she was leaning to one side, but she appears to have no focal deficits on assessment. They also reported that her blood pressures were in the 90s over 60s. EMS reports a blood pressure of 108/68. Fingerstick blood sugar was 102. Patient is alert and slightly confused due to dementia. She reportedly has pancreatic cancer, but this proved to be incorrect after review of her chart. She is actually being treated for uterine cancer at . She was seen about a month ago in this ER for seizure-like activity. She had no prior history of seizures. Patient is afebrile and states that she feels just fine. Allergies and Home Medications Allergies Coded Allergies: No Allergy Information Available (Unverified , 05/27/16) Home Medications Acetaminophen 325 Mg Tablet, 650 MG PO Q4H PRN for MILD PAIN Prescribed by: SATYA SIDDIQUI on 08/08/16 09 Amlodipine Besylate 5 Mg Tablet, 5 MG PO DAILY Prescribed by: SATYA SIDDIQUI on 08/08/16916 Aspirin 81 Mg Tab.chew, 81 MG PO DAILY, (Reported) Levothyroxine Sodium 25 Mcg Tablet, 25 MCG PO DAILY, (Reported) Lisinopril 20 Mg Tablet, 20 MG PO DAILY, (Reported) Nitrofurantoin Monohyd/M-Cryst 100 Mg Capsule, 100 MG PO BID Prescribed by: BALAJI KERR on 04/26/17 0473 Patient Home Medication List Home Medication List Reviewed: Yes Review of Systems Review of Systems Constitutional: see HPI EENTM: no symptoms reported Respiratory: no symptoms reported Cardiovascular: no symptoms reported Gastrointestinal: no symptoms reported Genitourinary: see HPI : No Musculoskeletal: no symptoms reported Skin: no symptoms reported Psychiatric/Neurological: No Symptoms Reported Hematologic/Lymphatic: See HPI Immunological/Allergic: no symptoms reported Past Qmyvocq-Cvkjyp-Tfzoes Hx Past Med/Social Hx: Reviewed and Corrections made Patient Social History Alcohol Use: Denies Use Recreational Drug Use: No Smoking Status: Never a Smoker 2nd Hand Smoke Exposure: No Recent Foreign Travel: No Contact w/Someone Who Travel: No Recent Infectious Disease Expo: No Recent Hopitalizations: No Immunizations Up To Date Tetanus Booster (TDap): Unknown Seasonal Allergies Seasonal Allergies: No Past Medical History Surgeries: Yes (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 AT ) Respiratory: No Cardiac: Yes High Cholesterol, Hypertension Neurological: Yes Dementia, Seizure Disorder (suspected new onset seizure March 2018) : No Reproductive Disorders: Yes (UTERINE CANCER) Female Reproductive Disorders: Denies 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 No Pertinent Family Hx Physical Exam Vital Signs Vital Signs - First Documented 04/19/18 10:00 Temp 96.7 Pulse 63 Resp 12 B/P (MAP) 112/54 (73) Pulse Ox 94 Capillary Refill : Less Than 3 Seconds Height, Weight, BMI Height: 5'3.00" Weight: 130lbs. 0oz. 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-XII Norm as Tested, Other (orientation is near baseline due to dementia) Skin: Normal Color, Warm/Dry Progress/Results/Core Measures Suspected Sepsis Recent Fever Within 48 Hours: No Infection Criteria Present: None New/Unexplained Altered Menta: No Sepsis Screen: No Definite Risk SIRS Temperature:96.7 Pulse: 63 Respiratory Rate: 12 Laboratory Tests 04/19/18 10:02: White Blood Count 7.1 Blood Pressure 112 /54 Mean: 73 Laboratory Tests 04/19/18 10:02: Creatinine 0.82, Platelet Count 355, Total Bilirubin 0.4 Results/Orders Lab Results Laboratory Tests Test 04/19/18 10:02 04/19/18 10:25 Range/Units White Blood Count 7.1 4.3-11.0 10^3/uL Red Blood Count 3.14 L 4.35-5.85 10^6/uL Hemoglobin 10.4 L 11.5-16.0 G/DL Hematocrit 31 L 35-52 % Mean Corpuscular Volume 98 80-99 FL Mean Corpuscular Hemoglobin 33 25-34 PG Mean Corpuscular Hemoglobin Concent 34 32-36 G/DL Red Cell Distribution Width 13.6 10.0-14.5 % Platelet Count 355 130-400 10^3/uL Mean Platelet Volume 9.4 7.4-10.4 FL Neutrophils (%) (Auto) 64 42-75 % Lymphocytes (%) (Auto) 20 12-44 % Monocytes (%) (Auto) 13 H 0-12 % Eosinophils (%) (Auto) 2 0-10 % Basophils (%) (Auto) 0 0-10 % Neutrophils # (Auto) 4.6 1.8-7.8 X 10^3 Lymphocytes # (Auto) 1.4 1.0-4.0 X 10^3 Monocytes # (Auto) 1.0 0.0-1.0 X 10^3 Eosinophils # (Auto) 0.1 0.0-0.3 10^3/uL Basophils # (Auto) 0.0 0.0-0.1 10^3/uL Sodium Level 134 L 135-145 MMOL/L Potassium Level 4.3 3.6-5.0 MMOL/L Chloride Level 102 98-107 MMOL/L Carbon Dioxide Level 24 21-32 MMOL/L Anion Gap 8 5-14 MMOL/L Blood Urea Nitrogen 21 H 7-18 MG/DL Creatinine 0.82 0.60-1.30 MG/DL Estimat Glomerular Filtration Rate > 60 BUN/Creatinine Ratio 26 Glucose Level 90 70-105 MG/DL Calcium Level 8.7 8.5-10.1 MG/DL Corrected Calcium 9.3 8.5-10.1 MG/DL Total Bilirubin 0.4 0.1-1.0 MG/DL Aspartate Amino Transf (AST/SGOT) 18 5-34 U/L Alanine Aminotransferase (ALT/SGPT) 15 0-55 U/L Alkaline Phosphatase 58 40-136 U/L C-Reactive Protein High Sensitivity 4.52 H 0.00-0.50 MG/DL Total Protein 6.0 L 6.4-8.2 GM/DL Albumin 3.2 3.2-4.5 GM/DL Thyroid Stimulating Hormone (TSH) 1.79 0.35-4.94 UIU/ML Free Thyroxine 0.76 0.70-1.48 NG/DL Urine Color YELLOW Urine Clarity CLEAR Urine pH 8 5-9 Urine Specific [place] 1.010 L 1.016-1.022 Urine Protein NEGATIVE NEGATIVE Urine Glucose (UA) NEGATIVE NEGATIVE Urine Ketones NEGATIVE NEGATIVE Urine Nitrite NEGATIVE NEGATIVE Urine Bilirubin NEGATIVE NEGATIVE Urine Urobilinogen NORMAL NORMAL MG/DL Urine Leukocyte Esterase NEGATIVE NEGATIVE Urine RBC (Auto) NEGATIVE NEGATIVE Urine RBC NONE /HPF Urine WBC 0-2 /HPF Urine Crystals NONE /LPF Urine Bacteria NEGATIVE /HPF Urine Casts NONE /LPF Urine Mucus SMALL H /LPF Urine Culture Indicated NO My Orders Orders - JONATHAN HYDE MD Cbc With Automated Diff (04/19/18 10:09) Comprehensive Metabolic Panel (04/19/18 10:09) Hs C Reactive Protein (04/19/18 10:09) Thyroid Stimulating Hormone (04/19/18 10:09) Saline Lock/Iv-Start (04/19/18 10:09) Monitor-Rhythm Ecg Trace Only (04/19/18 10:09) Chest 1 View, Ap/Pa Only (04/19/18 10:09) Free T4 (Free Thyroxine) (04/19/18 10:09) Ua Culture If Indicated (04/19/18 10:18) Vital Signs/I&O 04/19/18 10:00 Temp 96.7 Pulse 63 Resp 12 B/P (MAP) 112/54 (73) Pulse Ox 94 Capillary Refill : Less Than 3 Seconds Blood Pressure Mean: 73 Progress Note : Progress Note Patient received a liter of IV fluid. Workup was unremarkable. No bleeding was found in the vaginal area when a catheter urine specimen was obtained. There was a scant amount of dark blood on her brief period patient does have a history of uterine cancer which would explain vaginal bleeding. Patient was alert and demonstrated ability to ambulate with minimal assistance. She walked with a subtle limp. No focal deficits were found on neurologic exam aside from some disorientation due to dementia. Patient was ultimately dismissed home. Diagnostic Imaging Diagonstic Imaging: Xray Plain Films/CT/US/NM/MRI: chest Comments Chest x-ray viewed by me and report reviewed. See report below: NAME: ENRIQUETA PIRES [facility] REC#: [id number] PT STATUS: REG ER : 1935 PHYSICIAN: JONATHAN HYDE MD ADMIT DATE: 04/19/18/ER Draft Date of Exam:04/19/18 CHEST 1 VIEW, AP/PA ONLY INDICATION: Lethargy. Comparison with 03/13/2018. FINDINGS: The lungs are well-aerated and free of infiltrate. Heart is not enlarged. There is no pulmonary edema or hilar adenopathy. No pneumothorax or pleural effusion. No bony abnormalities. IMPRESSION: Normal portable chest. Dictated on workstation # [id number] Dict: 04/19/18 1037 Trans: 04/19/18 1040 [facility] [id number] Interpreted by: ROLANDO CHINCHILLA MD Departure Impression Primary Impression: Vaginal bleeding Additional Impressions: Generalized weakness History of uterine cancer Anemia Qualified Codes: D64.9 - Anemia, unspecified Disposition: HOME, SELF-CARE Condition: Improved Departure-Patient Inst. Decision time for Depature: 10:45 Referrals: HUBER LEAHY MD (PCP/Family) Primary Care Physician Patient Instructions: NO INSTRUCTIONS GIVEN Add. Discharge Instructions: Encourage ambulation with a walker or other assistive devices. Follow-up with Dr. Leahy as soon as possible. Return to care if symptoms worsen. All discharge instructions reviewed with patient and/or family. Voiced understanding. Copy Copies To 1: HUBER LEAHY MD, JOSHUA T MD Apr 19, 2018 10:53
[2018-04-19] MEDS ORDERED: DONE10TA12 PO (16:11)
[2018-04-19] MEDS ORDERED: AMLO10TA6 PO (16:11)
[2018-04-19] MEDS ORDERED: CYAN500T44 PO (16:11)
[2018-04-19] MEDS ORDERED: LUBI24CA6 PO (16:11)
[2018-04-19] MEDS ORDERED: CITA40TA11 PO (16:11)
[2018-04-19] MEDS ORDERED: DOCU-143 PO (16:11)
[2018-04-19] MEDS ORDERED: ACET-93 PO (16:11)
[2018-04-19] MEDS ORDERED: MEMA10TA2 PO (16:11)
[2018-04-19] MEDS ORDERED: QUET25TA PO (16:11)
[2018-04-19] MEDS ORDERED: ALPR0.254 PO ×2 (16:11)
[2018-04-19] MEDS ORDERED: ROSU20TA PO (16:11)
[2018-04-20] MEDS ORDERED: ONDA8TAB13 PO (08:32)
[2018-04-20] MEDS ORDERED: ACET-2267 PO (08:32)
[2018-04-20] MEDS ORDERED: MAGN400O7 PO (08:32)
[2018-04-20] MEDS ORDERED: ASPI-983 PO (08:32)
[2018-04-20] MEDS ORDERED: ALPR0.25 PO (08:32)
[2018-04-20] MEDS ORDERED: LOPE-134 PO (08:32)
== END 2018-04-19 11:18 | disposition home or self-care (01) ==
LOC: EDUNIT# 09:56 → ER 09:57
DX: N93.9 Abnormal uterine and vaginal bleeding, unspecified (principal); R53.1 Weakness; D64.9 Anemia, unspecified; E78.00 Pure hypercholesterolemia, unspecified; I10 Essential (primary) hypertension; F03.90 Unspecified dementia, unspecified severity, without behavioral disturbance, psychotic disturbance, mood disturbance, and anxiety; G40.909 Epilepsy, unspecified, not intractable, without status epilepticus; E03.9 Hypothyroidism, unspecified; Z92.21 Personal history of antineoplastic chemotherapy; Z79.82 Long term (current) use of aspirin; Z85.42 Personal history of malignant neoplasm of other parts of uterus
CPT/HCPCS: 36415; 51701; 71045; 80053; 81000; 84439; 84443; 85025; 86141; 93041

== ENCOUNTER 2018-04-19 15:51 | Inpatient (IN) | payer MEDICARE, OTHER ==
[~2018-04-19] VITALS: Ht 162.6 cm; Wt 68.0 kg
[2018-04-19] MEDS ORDERED: ALPR0.254 PO ×2 (16:11)
[2018-04-19] MEDS ORDERED: AMLO10TA6 PO (16:11)
[2018-04-19] MEDS ORDERED: QUET25TA PO (16:11)
[2018-04-19] MEDS ORDERED: LUBI24CA6 PO (16:11)
[2018-04-19] MEDS ORDERED: CITA40TA11 PO (16:11)
[2018-04-19] MEDS ORDERED: ACET-93 PO (16:11)
[2018-04-19] MEDS ORDERED: MEMA10TA2 PO (16:11)
[2018-04-19] MEDS ORDERED: ROSU20TA PO (16:11)
[2018-04-19] MEDS ORDERED: CYAN500T44 PO (16:11)
[2018-04-19] MEDS ORDERED: DONE10TA12 PO (16:11)
[2018-04-19] MEDS ORDERED: DOCU-143 PO (16:11)
--- NOTE | 2018-04-19 16:45 | ED Fall/Injury ---
General Chief Complaint: Trauma-Non Activation Stated Complaint: FALL Nursing Triage Note: pt to er per ems with reports of fall from assisted living staff. the fall was unwitnessed. pt denies pain except in suprapubic area. full ROM of legs. Source: patient Exam Limitations: no limitations History of Present Illness Date Seen by Provider: Apr 19, 2018 Time Seen by Provider: 15:52 Initial Comments This patient arrives via EMS after having a fall at [facility]. She was seen in this ER earlier today with complaints from [facility] staff about patient seeming "lethargic" and having vaginal bleeding. Patient's workup in the ER was unremarkable. She has a history of uterine cancer which is presumably the source of her vaginal bleeding. She had no observed vaginal bleeding in the ER. She was found to be alert and she had no complaints. She has baseline dementia. Patient was weightbearing and was able to ambulate out of the ER with her walker at the time of discharge. However, she fell at [facility] after returning home while using her walker. She denied any notable pain for EMS or for this ER staff. EMS notes she was able to bear weight when transferring to the [facility]. She denies any other new complaints. She has no pain. She denies hitting her head or neck. She is cheerful and joking. Review of chart notes the patient had one seizure like episode in March without any prior episodes. She was seen in this ER for evaluation at that time. Allergies and Home Medications Allergies Coded Allergies: No Known Drug Allergies (Unverified , 04/19/18) Home Medications Acetaminophen 500 Mg Tablet, 1,000 MG PO HS, (Reported) Alprazolam Unknown Strength Tablet, Unknown Dose PO BID, (Reported) Alprazolam 0.25 Mg Tablet, 0.25 MG PO Q8H PRN for ANXIETY, (Reported) Amlodipine Besylate 10 Mg Tablet, 10 MG PO DAILY, (Reported) Aspirin 81 Mg Tab.chew, 81 MG PO DAILY, (Reported) Citalopram Hydrobromide 40 Mg Tablet, 40 MG PO DAILY, (Reported) Cyanocobalamin (Vitamin B-12) 500 Mcg Tablet, 1,000 MCG PO DAILY, (Reported) Docusate Sodium 100 Mg Capsule, 100 MG PO BID, (Reported) Donepezil HCl 10 Mg Tablet, 10 MG PO HS, (Reported) Levothyroxine Sodium 25 Mcg Tablet, 25 MCG PO DAILY, (Reported) Lisinopril 20 Mg Tablet, 20 MG PO DAILY, (Reported) Lubiprostone 24 Mcg Capsule, 24 MCG PO BID, (Reported) Memantine HCl 10 Mg Tablet, 10 MG PO BID, (Reported) Quetiapine Fumarate 25 Mg Tablet, 25 MG PO HS, (Reported) Rosuvastatin Calcium 20 Mg Tablet, 20 MG PO HS, (Reported) Patient Home Medication List Home Medication List Reviewed: Yes Review of Systems Review of Systems Constitutional: no symptoms reported Eyes: No Symptoms Reported Ears, Nose, Mouth, Throat: no symptoms reported Respiratory: no symptoms reported Cardiovascular: no symptoms reported Gastrointestinal: no symptoms reported Genitourinary: see HPI : No Musculoskeletal: no symptoms reported Skin: no symptoms reported Psychiatric/Neurological: See HPI Past Vetsfbm-Sztlze-Bgicee Hx Patient Social History Alcohol Use: Denies Use Recreational Drug Use: No Smoking Status: Never a Smoker 2nd Hand Smoke Exposure: No Recent Foreign Travel: No Contact w/Someone Who Travel: No Recent Infectious Disease Expo: No Recent Hopitalizations: No Immunizations Up To Date Tetanus Booster (TDap): Unknown PED Vaccines UTD: Yes Seasonal Allergies Seasonal Allergies: No Past Medical History Surgeries: Yes (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 AT ) Respiratory: No Cardiac: Yes High Cholesterol, Hypertension Neurological: Yes Dementia, Seizure Disorder Reproductive Disorders: Yes (UTERINE CANCER) Female Reproductive Disorders: Denies 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 No Pertinent Family Hx Physical Exam Vital Signs Vital Signs - First Documented 04/19/18 15:51 Temp 96.6 Pulse 65 Resp 16 B/P (MAP) 111/62 (78) Pulse Ox 99 O2 Delivery Room Air Capillary Refill : Less Than 3 Seconds Height, Weight, BMI Height: 5'4.00" Weight: 150lbs. 0oz. 68.285653vw; 25.2 BMI Method:Estimated General Appearance: WD/WN, no apparent distress HEENT: PERRL/EOMI, normal ENT inspection, pharynx normal Neck: normal inspection Cardiovascular: regular rate, rhythm, no edema, no murmur Respiratory: lungs clear, normal breath sounds, no respiratory distress, no accessory muscle use Gastrointestinal: normal bowel sounds, soft, other (Tenderness just over the suprapubic bone) Extremities: normal inspection, no pedal edema, other (No tenderness of the hips with palpation. No pain with rotation of the hips. Patient is able to lift her legs in extension off the bed without pain or hesitation.) Neurologic/Psychiatric: renewals representative II-XII nml as tested, no motor/sensory deficits, alert, normal mood/affect, other (Disoriented to baseline with dementia) Skin: normal color, warm/dry Progress/Results/Core Measures Results/Orders My Orders Orders - JONATHAN HYDE MD Pelvis With Left Hip 2-3 Views (04/19/18 16:15) Vital Signs/I&O 04/19/18 04/19/18 15:51 15:55 Temp 96.6 96.6 Pulse 65 65 Resp 16 16 B/P (MAP) 111/62 (78) 111/62 (78) Pulse Ox 99 99 O2 Delivery Room Air Room Air Blood Pressure Mean: 78 Progress Progress Note : Progress Note Chest x-ray, UA and labs were not performed as patient had these studies done earlier today. Please see that ER visit for details. On exam patient had some tenderness just over the suprapubic bone. For this reason an x-ray of the pelvis was performed. Left hip fracture was suspected and hip films were added. Impacted subcapital hip fracture was suspected. Because patient denies pain and has good function of the left hip, Dr. Garrido recommended further evaluation to determine if the hip fracture is acute or chronic. CT scan was obtained and fracture was deemed to be acute. Patient was admitted to Dr. Garrido with Dr. Thorpe consulted for medical management. Salas catheter was placed and patient was admitted. Diagnostic Imaging Diagonstic Imaging: CT Plain Films/CT/US/NM/MRI: pelvis Comments CT pelvis viewed by me and report reviewed. See report below: NAME: ENRIQUETA PIRES [facility] REC#: [id number] PT STATUS: ADM IN : 1935 PHYSICIAN: JONATHAN HYDE MD ADMIT DATE: 04/19/18 Signed Date of Exam:04/19/18 CT PELVIS WO PROCEDURE: CT pelvis without contrast. TECHNIQUE: Multiple contiguous axial images were obtained through the pelvis without the use of intravenous contrast. Sagittal and coronal reformations were performed. INDICATION: Left hip fracture. FINDINGS: There is a subcapital fracture of the left hip with mild impaction. There is no angulation. There is no dislocation. The trochanters are intact. The pelvic ring is intact. There are degenerative changes of the lower lumbar spine. IMPRESSION: There is a mildly impacted subcapital fracture of the left hip. Dictated by: Dictated on workstation # [id number] Dict: 04/19/181712 Trans: 04/19/181718 [id number] Interpreted by: MIRTA SAUNDERS MD Electronically signed by: MIRTA SAUNDERS MD 04/19/181718 Diagonstic Imaging: Xray Plain Films/CT/US/NM/MRI: pelvis Comments Pelvis x-ray viewed by me and report reviewed. See report below: NAME: ENRIQUETA PIRES [facility] REC#: [id number] PT STATUS: ADM IN : 1935 PHYSICIAN: JONATHAN HYDE MD ADMIT DATE: 04/19/18 Signed Date of Exam: 04/19/18 CT PELVIS WO PROCEDURE: CT pelvis without contrast. TECHNIQUE: Multiple contiguous axial images were obtained through the pelvis without the use of intravenous contrast. Sagittal and coronal reformations were performed. INDICATION: Left hip fracture. FINDINGS: There is a subcapital fracture of the left hip with mild impaction. There is no angulation. There is no dislocation. The trochanters are intact. The pelvic ring is intact. There are degenerative changes of the lower lumbar spine. IMPRESSION: There is a mildly impacted subcapital fracture of the left hip. Dictated by: Dictated on workstation # [id number] Dict: 04/19/181712 Trans: 04/19/181718 Interpreted by: MIRTA SAUNDERS MD Electronically signed by: MIRTA SAUNDERS MD 04/19/18 4368 Departure Communication (Admissions) Time/Spoke to Admitting Phy: 16:30 Dr. Garrido Time/Spoke to Consulting Phy: 16:30 Dr. Thorpe Impression Primary Impression: Closed left hip fracture Qualified Codes: S72.002A - Fracture of unspecified part of neck of left femur , initial encounter for closed fracture Additional Impressions: Fall on same level Qualified Codes: W18.30XA - Fall on same level, unspecified, initial encounter Dementia Qualified Codes: F03.90 - Unspecified dementia without behavioral disturbance Disposition: ADMITTED INPATIENT Condition: Stable Admissions Decision to Admit Reason: Admit from ER (Trauma) Decision to Admit/Date: Apr 19, 2018 Time/Decision to Admit Time: 16:30 Departure-Patient Inst. Referrals: HUBER LEAHY MD (PCP/Family) Primary Care Physician Copy Copies To 1: HUBER LEAHY MD, JOSHUA T MD Apr 19, 2018 16:45
--- NOTE | 2018-04-19 16:47 | Diagnostic Imaging Report ---
INDICATION: Left hip pain. EXAMINATION: AP pelvis and left hip. FINDINGS: There is a femoral neck fracture in a subcapital location with mild impaction angulation. Femoral head is in normal articulation with the acetabulum. SI joints are symmetrical. No pelvic fractures. IMPRESSION: Subcapital fracture of left femoral neck. Dictated by: Dictated on workstation # [id number]
--- NOTE | 2018-04-19 17:17 | Diagnostic Imaging Report ---
PROCEDURE: CT pelvis without contrast. TECHNIQUE: Multiple contiguous axial images were obtained through the pelvis without the use of intravenous contrast. Sagittal and coronal reformations were performed. INDICATION: Left hip fracture. FINDINGS: There is a subcapital fracture of the left hip with mild impaction. There is no angulation. There is no dislocation. The trochanters are intact. The pelvic ring is intact. There are degenerative changes of the lower lumbar spine. IMPRESSION: There is a mildly impacted subcapital fracture of the left hip. Dictated by: Dictated on workstation # [id number]
[2018-04-19 17:36] VITALS: BP 117/52
[2018-04-19] MEDS ORDERED: fentaNYL INJECTION 100 MCG/2 ML AMP IVP PRN (18:00)
[2018-04-19 19:17] VITALS: BP 133/83
[2018-04-19] MEDS ORDERED: ANTACID SUSP 30 ML UDC (MYLANTA) PO PRN (20:00)
[2018-04-19] MEDS ORDERED: ALPRAZolam 0.25 MG (XANAX) TAB PO PRN (20:00)
[2018-04-19] MEDS ORDERED: MILK OF MAGNESIA 400 MG/5 ML 30 ML UDC PO PRN (20:00)
[2018-04-19] MEDS ORDERED: ONDANSETRON 4 MG/2 ML (SDV) Z0FRAN IV PRN (20:00)
[2018-04-19] MEDS ORDERED: BENZONATATE 100 MG (TESSALON) CAPSULE PO PRN (20:00)
[2018-04-19] MEDS ORDERED: HALOPERIDOL 5 MG/ML (HALDOL) AMP IM PRN (20:00)
[2018-04-19] MEDS: ACETAMINOPHEN 500 MG TAB (TYLENOL) PO PRN (21:00)
[2018-04-19] MEDS: QUEtiapine 25 MG (SEROquel) TAB IMMEDIATE RELEASE PO SCH (21:01)
[2018-04-19 23:14] VITALS: BP 110/56
[2018-04-20] VITALS (7 sets, daily range): BP systolic 114–150; BP diastolic 55–65
[2018-04-20 05:03] LABS: BASOPHILS % (AUTO) 0 % (0-10); EOSINOPHILS # (AUTO) 0.2 10^3/uL (0.0-0.3); EOSINOPHILS % (AUTO) 2 % (0-10); HEMATOCRIT 31 % (35-52); HEMOGLOBIN 10.8 G/DL (11.5-16.0); LYMPHOCYTES # (AUTO) 1.1 X 10^3 (1.0-4.0); LYMPHOCYTES % (AUTO) 11 % (12-44); MEAN CORPUSCULAR HEMOGLOBIN 34 PG (25-34); MEAN CORPUSCULAR HGB CONC 35 G/DL (32-36); MEAN CORPUSCULAR VOLUME 97 FL (80-99); MEAN PLATELET VOLUME 9.4 FL (7.4-10.4); MONOCYTES # (AUTO) 0.8 X 10^3 (0.0-1.0); MONOCYTES % (AUTO) 8 % (0-12); NEUTROPHILS # (AUTO) 7.9 X 10^3 (1.8-7.8); NEUTROPHILS % (AUTO) 80 % (42-75); PLATELET COUNT 335 10^3/uL (130-400); RED BLOOD COUNT 3.22 10^6/uL (4.35-5.85); RED CELL DISTRIBUTION WIDTH 13.4 % (10.0-14.5); WHITE BLOOD COUNT 9.9 10^3/uL (4.3-11.0)
[2018-04-20 05:20] LABS: BUN/CREATININE RATIO 27; CALCIUM 9.4 MG/DL (8.5-10.1); CARBON DIOXIDE 21 MMOL/L (21-32); CHLORIDE 101 MMOL/L (98-107); CREATININE SERUM 0.77 MG/DL (0.60-1.30); GFR ESTIMATED > 60; GLUCOSE 98 MG/DL (70-105); POTASSIUM 4.6 MMOL/L (3.6-5.0); SODIUM 135 MMOL/L (135-145)
[2018-04-20] MEDS ORDERED: FLU QUADRIvalent (5+ YOA) 2018-2019 (AFLURIA) 0.5 ML IM ONE (07:00)
[2018-04-20] MEDS ORDERED: ALPR0.25 PO (08:32)
[2018-04-20] MEDS ORDERED: ONDA8TAB13 PO (08:32)
[2018-04-20] MEDS ORDERED: ACET-2267 PO (08:32)
[2018-04-20] MEDS ORDERED: MAGN400O7 PO (08:32)
[2018-04-20] MEDS ORDERED: ASPI-983 PO (08:32)
[2018-04-20] MEDS ORDERED: LOPE-134 PO (08:32)
--- NOTE | 2018-04-20 09:44 | Consultation ---
History of Present Illness History of Present Illness Patient Consulted On(ileana/time) 04/20/18 09:42 Date Seen by Provider: Apr 20, 2018 Time Seen by Provider: 09:42 Reason for Visit: L subcap hip fracture History of Present Illness 83 yr yo demented WF with subcap hip fracture. recent hx of falls. here with neighbor. I had conference call with son. he will determine the plan. sx here vs transfer to . she is not on blood thinners. she is npo Allergies and Home Medications Allergies Coded Allergies: No Known Drug Allergies (Unverified , 04/19/18) Home Medications Acetaminophen 500 Mg Tablet, 1,000 MG PO HS, (Reported) TAKES 2 (500MG) TABLETS Acetaminophen 500 Mg Tablet, 1,000 MG PO Q4H PRN for PAIN-MILD OR TEMPATURE, ( Reported) Alprazolam 0.25 Mg Tablet, 0.25 MG PO Q8H PRN for AGITATION/ANGER, (Reported) Alprazolam 0.25 Mg Tablet, 0.25 MG PO 0530,1400, (Reported) Amlodipine Besylate 10 Mg Tablet, 10 MG PO DAILY, (Reported) Aspirin 81 Mg Tablet.dr, 81 MG PO DAILY, (Reported) Citalopram Hydrobromide 40 Mg Tablet, 40 MG PO DAILY, (Reported) Cyanocobalamin (Vitamin B-12) 500 Mcg Tablet, 1,000 MCG PO DAILY, (Reported) Docusate Sodium 100 Mg Capsule, 100 MG PO BID, (Reported) Donepezil HCl 10 Mg Tablet, 10 MG PO HS, (Reported) Levothyroxine Sodium 25 Mcg Tablet, 25 MCG PO DAILY, (Reported) Lisinopril 20 Mg Tablet, 20 MG PO DAILY, (Reported) Loperamide HCl 2 Mg Tablet, 2 MG PO UD PRN for LOOSE STOOLS, (Reported) TAKE 1 TABLET AFTER EACH LOOSE STOOL, NOT TO EXCEED 4 TABS/24HOURS Lubiprostone 24 Mcg Capsule, 24 MCG PO BID, (Reported) Magnesium Hydroxide 400 Mg/5 Ml Oral.susp, 30 ML PO DAILY PRN for CONSTIPATION- 7TH LINE, (Reported) Memantine HCl 10 Mg Tablet, 10 MG PO BID, (Reported) Ondansetron 8 Mg Tab.rapdis, 8 MG PO Q8H PRN for NAUSEA/VOMITING-1ST LINE, ( Reported) Quetiapine Fumarate 25 Mg Tablet, 25 MG PO HS, (Reported) Rosuvastatin Calcium 20 Mg Tablet, 20 MG PO HS, (Reported) Patient Home Medication List Home Medication List Reviewed: Yes Past Attlqwk-Tjihuo-Hwddnb Hx Patient Social History Alcohol Use: Denies Use Recreational Drug Use: No Smoking Status: Never a Smoker 2nd Hand Smoke Exposure: No Recent Foreign Travel: No Contact w/Someone Who Travel: No Recent Infectious Disease Expo: No Recent Hopitalizations: No Immunizations Up To Date Tetanus Booster (TDap): Unknown PED Vaccines UTD: Yes Seasonal Allergies Seasonal Allergies: No Past Medical History Surgeries: Yes (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 AT ) Respiratory: No Cardiac: Yes High Cholesterol, Hypertension Neurological: Yes Dementia, Seizure Disorder Reproductive Disorders: Yes (UTERINE CANCER) Female Reproductive Disorders: Denies CONTENT COORDINATOR History: Menopausal Sexually Transmitted Disease: No Genitourinary: No Gastrointestinal: No Musculoskeletal: Yes (FREQUENT FALLS/GAIT DISTURBANCE; GENERALIZED WEAKNESS) Endocrine: Yes Hypothyroidsim HEENT: Yes (RIGHT EYE CATARACT) Cataract Loss of Vision: Denies Hearing Impairment: Denies Cancer: Yes Uterine Did You Recieve Any Treatments: Yes Psychosocial: No Integumentary: No Blood Disorders: No Family Medical History Patient reports no known family medical history. No Pertinent Family Hx Physical Exam-General Problems Physical Exam Vital Signs Vital Signs - First Documented 04/19/18 15:51 Temp 96.6 Pulse 65 Resp 16 B/P (MAP) 111/62 (78) Pulse Ox 99 O2 Delivery Room Air Capillary Refill : Less Than 3 SecondsLess Than 3 Seconds General Appearance: no apparent distress Extremities: other (LLE pain with log roll, NVSI, 2/4 DP/PT) Assessment/Plan Assessment/Plan Admission Diagnosis/Plan ASSESSMENT: L Subcap hip fracture PLAN: to be determined sx either at via by dr kruse or myself vs transfer to [facility] Clinical Quality Measures DVT/VTE Risk/Contraindication: Risk Factor Score Per Nursin RFS Level Per Nursing on Admit: 4+=Very High ROWENA MATAMOROS DO Apr 20, 2018 09:44
[2018-04-20] MEDS: LACTATED RINGERS 1,000 ML IV SCH (09:59)
[2018-04-20] MEDS ORDERED: LACTATED RINGERS 1,000 ML IV PRN ×2 (10:14→12:08)
--- NOTE | 2018-04-20 11:36 | History & Physical-Hospitalist ---
History of Present Illness HPI/Chief Complaint The patient is an 83-year-old white female resident of [facility]. She apparently fell and suffered a hip fracture. She is unable to tell me whether this is true or not. She is pleasant but very noncommittal about details. She states that she has no chronic diseases. X- rays in the emergency room showed a subcapital fracture of the left hip. Date Seen 04/20/18 Time Seen by a Provider: 11:31 Attending Physician Kingsley Garrido MD PCP Roderick Barfield MD Referring Physician Date of Admission Apr 19, 2018 at 16:30 Home Medications & Allergies Home Medications Reviewed patient Home Medication Reconciliation performed by pharmacy medication reconciliations network support technician and/or nursing. Patients Allergies have been reviewed. Allergies Allergies Coded Allergies No Known Drug Allergies (Bctgoagwsi30/14/18) Past Eejnlfb-Ibybky-Rtsjry Hx Past Med/Social Hx: Reviewed Nursing Past Med/Soc Hx Patient Social History Alcohol Use: Denies Use Recreational Drug Use: No Smoking Status: Never a Smoker 2nd Hand Smoke Exposure: No Physical Abuse Screen: No Sexual Abuse: No Recent Foreign Travel: No Contact w/other who traveled: No Recent Hopitalizations: No Recent Infectious Disease Expo: No Immunizations Up To Date Tetanus Booster (TDap): Unknown Pediatric: Yes Seasonal Allergies Seasonal Allergies: No Past Medical History Cardiac: High Cholesterol, Hypertension Neurological: Dementia, Seizure Disorder Reproductive: Yes (UTERINE CANCER) Sexually Transmitted Disease: No Female Reproductive Disorders: Denies Menopausal Endocrine: Hypothyroidsim HEENT: Cataract Loss of Vision: Denies Hearing Impairment: Denies Cancer: Uterine Did You Recieve Any Treatments: Yes History of Blood Disorders: No Family History Patient reports no known family medical history. No Pertinent Family Hx Review of Systems Constitutional: other (apparently demented and unable to give any history) Physical Exam Physical Exam Vital Signs Vital Signs - First Documented 04/19/18 15:51 Temp 96.6 Pulse 65 Resp 16 B/P (MAP) 111/62 (78) Pulse Ox 99 O2 Delivery Room Air Capillary Refill : Less Than 3 SecondsLess Than 3 Seconds Height, Weight, BMI Height: 5'4.00" Weight: 150lbs. 0.0oz. [id number]; 25.8 BMI Method:Estimated General Appearance: Other (pleasant but noncommittal) Eyes: Bilateral Eye Normal Inspection HEENT: Normal ENT Inspection Neck: Full Range of Motion, Normal Inspection, Non Tender, Supple, Carotid Bruit Respiratory: Chest Non Tender, Lungs Clear, Normal Breath Sounds, No Accessory Muscle Use, No Respiratory Distress Cardiovascular: Regular Rate, Rhythm, No Edema, No Gallop, No JVD, No Murmur, Normal Peripheral Pulses Gastrointestinal: Normal Bowel Sounds, No Organomegaly, No Pulsatile Mass, Non Tender, Soft Extremity: No Pedal Edema Neurologic/Psychiatric: Alert Skin: Normal Color, Warm/Dry Lymphatic: No Adenopathy Results Results/Procedures Labs Laboratory Tests 04/20/18 04:40 Patient resulted labs reviewed. Assessment/Plan Admission Diagnosis Subcapital fracture left hip. 2.dementia. 3.history of hypertension. Admission Status: Inpatient Order (span 2 midnights) Reason for Inpatient Admission: Surgical repair left hip fracture Clinical Quality Measures DVT/VTE Risk/Contraindication: Risk Factor Score Per Nursin RFS Level Per Nursing on Admit: 4+=Very High BLAISE NESS MD Apr 20, 2018 11:36
[2018-04-20] MEDS ORDERED: LIDOCAINE PF 2% 5 ML (XYLOCAINE) VIAL ONE (11:55)
[2018-04-20] MEDS ORDERED: proPOfol 200 MG/20 ML (DIPRIVAN) VIAL IV ONE (11:55)
[2018-04-20] MEDS ORDERED: fentaNYL INJECTION 100 MCG/2 ML AMP ONE (11:56)
[2018-04-20] MEDS ORDERED: SEVOFLURANE (ULTANE) 15 ML INHAL SOLN ONE ×2 (12:01→13:37)
[2018-04-20] MEDS ORDERED: ONDANSETRON 4 MG/2 ML (SDV) Z0FRAN ONE (12:01)
--- NOTE | 2018-04-20 12:28 | Progress Note-Pre Operative ---
Pre-Operative Progress Note H&P Reviewed The H&P was reviewed, patient examined and I will plan to perform a left hip perc pinning. Date Seen by Provider: Apr 20, 2018 Time Seen by Provider: 12: Date H&P Reviewed: Apr 20, 2018 Time H&P Reviewed: : Pre-Operative Diagnosis: Left Closed Impacted Femoral Neck Fracture MARCO CASEY MD Apr 20, 2018 12:28 pm
[2018-04-20] MEDS ORDERED: ceFAZolin 1,000 MG/10 ML (ANCEF) VIAL IV NR (12:30)
[2018-04-20] MEDS ORDERED: ceFAZolin 1,000 MG/10 ML (ANCEF) VIAL ONE (12:43)
[2018-04-20] MEDS ORDERED: DEXAMETHASONE 10 MG/ML (DECADRON) 1 ML VIAL ONE (13:03)
[2018-04-20] MEDS ORDERED: morphine INJ 4 MG/ML 1 ML (VIAL/SYRINGE) IV PRN (13:30)
--- NOTE | 2018-04-20 13:30 | Progress Note-Post Operative ---
Post-Operative Progess Note Surgeon (s)/Shape Carver (s) Surgeon MARCO CASEY MD Shape Carver: RASHAUN Coronado Pre-Operative Diagnosis Left Closed Impacted Femoral Neck Fracture Post-Operative Diagnosis Same Procedure & Operative Findings Date of Procedure 04/20/18 Procedure Performed/Findings Perc Pinning Left Hip Anesthesia Type LMA Estimated Blood Loss Estimated blood loss (mL): Min Specimens/Packing Specimens Removed None MARCO CASEY MD Apr 20, 2018 13:30
--- NOTE | 2018-04-20 13:36 | Diagnostic Imaging Report ---
INDICATION: Left hip fracture. FINDINGS: Fluoroscopy was provided in the OR during left hip pinning. 77 seconds of fluoroscopy was utilized. Images demonstrate three partially threaded screws transfixing the left femoral neck. IMPRESSION: Fluoroscopy during left hip pinning. Dictated by: Dictated on workstation # [id number]
[2018-04-20] MEDS ORDERED: ONDANSETRON 4 MG/2 ML (SDV) Z0FRAN IVP PRN (13:45)
[2018-04-20] MEDS ORDERED: morphine INJ 10 MG/ML 1ML (SYR OR VIAL) IVP ONE (13:45)
--- NOTE | 2018-04-20 14:14 | Occ Therapy Progress Note ---
Therapy Progress Note 1415 Pt in surgery this afternoon so will hold OT until tomorrow. ANGELIQUE CASTILLO OT Apr 20, 2018 14:14
--- NOTE | 2018-04-20 15:00 | Physical Therapy Progress Note ---
Therapy Progress Note Patient just returned to room from surgery. PT to begin in ANTONIETTA Blanchard PT Apr 20, 2018 15:00
[2018-04-20] MEDS: ACETAMINOPHEN 500 MG TAB (TYLENOL) PO PRN (16:28)
[2018-04-20] MEDS: ENOXAPARIN 30 MG/0.3 ML (LOVENOX) SYR SC SCH (18:14)
[2018-04-20] MEDS: QUEtiapine 25 MG (SEROquel) TAB IMMEDIATE RELEASE PO SCH (20:27)
[2018-04-20] MEDS: ceFAZolin 2 GM IV Premixed 50 ML IV SCH (20:28)
--- NOTE | 2018-04-21 01:21 | OPERATIVE REPORT ---
DATE OF SERVICE: 04/20/2018 PREOPERATIVE DIAGNOSIS: Left impacted femoral neck fracture, closed. POSTOPERATIVE DIAGNOSIS: Left impacted femoral neck fracture, closed. PROCEDURE PERFORMED: Left hip percutaneous screw fixation for femoral neck fracture. DATE AND TIME OF SURGERY: Please see anesthesia record. SURGEON: Marco Garrido MD FLEET SALES MANAGER: ANTON Coronado. ROLE OF TILE FINISHER: Aid in retraction of the procedure, aid in implantation and station wound closure. ANESTHESIA: LMA. ESTIMATED BLOOD LOSS: Minimal. INTRAVENOUS FLUIDS: Please see anesthesia record. ANTIBIOTICS: Ancef. COMPLICATIONS: None. INDICATIONS FOR PROCEDURE: The patient is an 83-year-old female who fell at the skilled nursing yesterday sustaining an impacted femoral neck fracture. Risks, benefits, alternatives discussed and she elected to proceed with operative treatment. DESCRIPTION OF PROCEDURE: The patient was taken to the preoperative holding area and brought back to the operative suite after adequate induction of general anesthetic. Sterile prepping and draping of the left leg. A small incision was made. Guidewires were placed across the femoral neck utilizing the 7.3 mm cannulated guide. Three wires were placed into a satisfactory position checked in AP and frogleg views, measured and then two 90s and a 95 mm partially threaded cancellous 7.3 screws were placed across the fracture site and great position achieved. Hemostasis assured. Final imaging was obtained. The hip was ranged and it was stable. Wound was closed in layers. The patient was transferred to recovery room in stable condition and tolerated the procedure well. Job ID: [id number] DocumentID: [id number] Dictated Date: 04/20/2018 13:18:30 Diesel Maintenance Technician Date: 04/21/2018 01:20:36 Dictated By: MARCO GARRIDO MD
[2018-04-21 04:00] VITALS: BP 130/61
[2018-04-21] MEDS: LACTATED RINGERS 1,000 ML IV SCH ×2 (04:41→17:26)
[2018-04-21] MEDS: ceFAZolin 2 GM IV Premixed 50 ML IV SCH ×2 (04:41→12:23)
--- NOTE | 2018-04-21 05:00 | Progress Note (SOAP) ---
Subjective Date Seen by a Provider: Apr 21, 2018 Time Seen by a Provider: 04:58 Subjective/Events-last exam POD #1, s/p left percutaneous hip pinning VSS, Afebrile NAD Review of Systems Gastrointestinal: No: Nausea Musculoskeletal: No: leg pain Neurological: Confusion Focused Exam Lactate Level 04/19/18 20:15: Lactic Acid Level 1.76 Objective Exam Vital Signs Date Time Temp Pulse Resp B/P (MAP) Pulse Ox O2 Delivery O2 Flow Rate FiO2 04/21/18 04:00 97.3 77 16 130/61 (84) 93 Room Air 04/20/18 23:53 97.7 77 18 130/61 (84) 94 Room Air 04/20/18 19:59 98.2 75 18 114/55 (74) 94 Room Air 04/20/18 15:41 99.4 83 18 126/58 (80) 95 Nasal Cannula 2.00 04/20/18 14:39 97.0 90 18 125/59 (81) 95 Nasal Cannula 2.00 04/20/18 12:00 98.8 71 20 140/62 (88) 95 Room Air 04/20/18 08:00 Room Air 04/20/18 07:49 98.2 63 18 150/65 (93) 99 Room Air I & O 04/21/18 07:00 Intake Total 880 ml Output Total 505 ml Balance 375 ml Capillary Refill : Less Than 3 SecondsLess Than 3 Seconds General Appearance: No Apparent Distress Respiratory: No Respiratory Distress Extremity: Normal Capillary Refill, Normal Range of Motion, Non Tender Neurologic/Psychiatric: Alert, Disoriented Skin: Other (Dressing CDI) Results Lab Microbiology 04/19/18 Blood Culture - Preliminary, Resulted No growth Assessment/Plan Assessment/Plan Assess & Plan/Chief Complaint Impacted left hip fracture S/P left hip percutaneous pinning Dementia Discharge planning Clinical Quality Measures DVT/VTE Risk/Contraindication: Risk Factor Score Per Nursin RFS Level Per Nursing on Admit: 4+=Very High BHUPINDER LU Apr 21, 2018 05:00
[2018-04-21 06:09] LABS: BASOPHILS % (AUTO) 0 % (0-10); EOSINOPHILS % (AUTO) 0 % (0-10); HEMATOCRIT 29 % (35-52); HEMOGLOBIN 9.8 G/DL (11.5-16.0); LYMPHOCYTES # (AUTO) 0.5 X 10^3 (1.0-4.0); LYMPHOCYTES % (AUTO) 5 % (12-44); MEAN CORPUSCULAR HEMOGLOBIN 33 PG (25-34); MEAN CORPUSCULAR HGB CONC 34 G/DL (32-36); MEAN CORPUSCULAR VOLUME 98 FL (80-99); MONOCYTES # (AUTO) 0.6 X 10^3 (0.0-1.0); MONOCYTES % (AUTO) 6 % (0-12); NEUTROPHILS # (AUTO) 9.4 X 10^3 (1.8-7.8); NEUTROPHILS % (AUTO) 89 % (42-75); PLATELET COUNT 315 10^3/uL (130-400); RED BLOOD COUNT 2.94 10^6/uL (4.35-5.85); RED CELL DISTRIBUTION WIDTH 13.4 % (10.0-14.5); WHITE BLOOD COUNT 10.5 10^3/uL (4.3-11.0)
[2018-04-21] MEDS: ENOXAPARIN 30 MG/0.3 ML (LOVENOX) SYR SC SCH ×2 (06:29→17:23)
[2018-04-21 06:34] LABS: BUN/CREATININE RATIO 29; CALCIUM 8.7 MG/DL (8.5-10.1); CARBON DIOXIDE 22 MMOL/L (21-32); CHLORIDE 101 MMOL/L (98-107); CREATININE SERUM 0.77 MG/DL (0.60-1.30); GFR ESTIMATED > 60; GLUCOSE 159 MG/DL (70-105); POTASSIUM 4.1 MMOL/L (3.6-5.0); SODIUM 133 MMOL/L (135-145)
--- NOTE | 2018-04-21 06:53 | Anesthesia-General Post-Op ---
General Patient Condition Mental Status/LOC: Same as Preop Cardiovascular: Satisfactory Nausea/Vomiting: Absent Respiratory: Satisfactory Pain: Controlled Complications: Absent Post Op Complications Complications None Follow Up Care/Instructions Patient Instructions None needed. Anesthesia/Patient Condition Patient Condition Patient is doing well, no complaints, stable vital signs, no apparent adverse anesthesia problems. No complications reported per nursing. MAXIMINO LIRIANO CRNA Apr 21, 2018 06:53
[2018-04-21 08:00] VITALS: BP 147/65
--- NOTE | 2018-04-21 10:01 | Physical Therapy Evaluation ---
PT Evaluation-General Medical Diagnosis Admission Date Apr 19, 2018 at 16:30 Medical Diagnosis: left femoral neck fracture Onset Date: Apr 19, 2018 Therapy Diagnosis Therapy Diagnosis: generalized weakness/debility Height/Weight Height (Feet): 5 Height (Inches): 4.00 Weight (Pounds): 150 Weight (Ounces): 0.0 Precautions Precautions/Isolations: Fall Prevention, Standard Precautions Weight Bear Status Right Lower Extremity: Right Full Weight Bearing Left Lower Extremity: Left Touch Toe Bearing Referral Physician: Hema Reason for Referral: Evaluation/Treatment Medical History Pertinent Medical History: Dementia, HTN, Hypothroidism Additional Medical History uterine cancer Current History unwitnessed fall at [place] Reviewed History: Yes Social History Home: Assisted Living Prior/Core FIM Prior Level of Function Functional [place] Measure 0=Not Assessed/NA 4=Minimal Assistance 1=Total Assistance 5=Supervision or Setup 2=Maximal Assistance 6=Modified [place] 3=Moderate Assistance 7=Complete IndependenceIRFPAI Quality Coding Scale 6 Independent with activity with or without an assistive device 5 Patient requires set up or clean up by helper. Patient completes activity by themselves 4 Supervision or touching assist (CGA). [place] provide cues , steadying assist 3 The helper provides less than half the effort to complete the activity 2 The helper provides more than half the effort to complete the activity 1 Dependent. The helper does all the effort to complete an activity 7 Patient refused to complete or attempt activity 9 The patient did not perform the activity before the current illness or injury 88 Not attempted due to Medical conditions or safety concerns Bed Mobility: 5 Transfers (B,C,W/C) (FIM): 5 Gait: 5 Prior Equipment Used: FWW PLOF PT Evaluation-Current Subjective Patient is in bed and PT educated patient on TTWB left LE. Due to dementia, patient is unable to comprehend. Pain Numeric Pain Scale: 0-No Pain Location: No Pain Reported Objective Patient Orientation: Confused Problem Solving: Poor Attachments: Oxygen, IV ROM/Strength ROM Lower Extremities bilateral Le WFL Strength Lower Extremities 3+/5 grossly bilaterally Integumentary/Posture Integumentary refer to nursing notes Bladder Incontinence: Yes Posture trunk flexed posture Neuromuscular (Tone, Coordination, Reflexes) grossly intact Sensory Vision: Functional Hearing: Functional Sensation Right Lower Extremit: Intact Sensation Left Lower Extremity: Intact Transfers Functional [place] Measure 0=Not Assessed/NA 4=Minimal Assistance 1=Total Assistance 5=Supervision or Setup 2=Maximal Assistance 6=Modified [place] 3=Moderate Assistance 7=Complete [place] Transfers (B, C, W/C) (FIM): 3 Scootin Rollin Supine to/from Sit: 4 Sit to/from Stand: 3 bed t/f WC(FIM only if WC use): 3 mod assist to off load left side due to patient unable to comply with TTWB left LE Gait Mode of Locomotion: Walk Anticipated Mode of Locomotion: Walk Gait (FIM): 1 Distance (FIM): 1=up to 49 ft Distance: 5' Gait Level of Assist: 3 Gait Persons Needed: 1 Gait Assistive Device: FWW Comments/Gait Description unable to comply with TTWB left LE Balance Sitting Static: Fair Sitting Dynamic: Fair Standing Static: Fair Standing Dynamic: Fair Assessment/Needs 83 y.o. confused female, will be seen by skilled PT to address functional strength and mobility to improve current LOF. From a PT standpoint, patient will require extended care facility to ensure appropriate healing. Rehab Potential: Fair PT Carpentry Professional Goals Carpentry Professional Goals PT Shelter Goals Time Frame: Apr 29, 2018 Transfers (B,C,W/C) (FIM): 4 Gait (FIM): 1 Gait distance (FIM): 1=up to 49 ft Distance: 10' Gait Level of Assist: 4 Gait Assistive Device: FWW PT Plan Problem List Problem List: Activity Tolerance, Safety, Balance, Gait Treatment/Plan Treatment Plan: Continue Plan of Care Treatment Plan: Bed Mobility, Education, Functional Activity Yunier, Functional Strength, Gait, Safety, Therapeutic Exercise, Transfers Treatment Duration: Apr 29, 2018 Frequency: 11 times per week Estimated Hrs Per Day: .5 hour per day Patient and/or Family Agrees t: Yes Discharge Recommendations Therapy D/C Recommendations: Care Home Placement, [facility] (TCU/NH) Time/GCodes Time In: 845 Time Out: 903 Total Billed Treatment Time: 18 [facility] ANTONIETTA AGUIRRE PT Apr 21, 2018 10:01
--- NOTE | 2018-04-21 10:54 | Occupational Therapy Eval ---
OT Evaluation-General/PLF Medical Diagnosis Admission Date Apr 19, 2018 at 16:30 Medical Diagnosis: left femoral neck fracture Onset Date: Apr 19, 2018 Therapy Diagnosis Therapy Diagnosis: decr self care, weakness, decr funct mob, decr cognition Height/Weight Height (Feet): 5 Height (Inches): 4.00 Weight (Pounds): 150 Weight (Ounces): 0.0 Precautions Precautions/Isolations: Fall Prevention, Standard Precautions Safety Interventions: Bed Exit Alarm Weight Bear Status Weight Bearing Restriction: Touch Toe Bearing Location Restriction: L LE Referral Physician: Hema Referral Reason: Evaluation/Treatment Medical History Pertinent Medical History: Dementia, HTN, Hypothroidism Additional Medical History Uterine cancer December 2017. Seizure disorder. Frequent falls. Weakness. R cataract Current History Unwitnessed fall at [facility] [place]. L sub cap hip fx, with perc pinning Reviewed History: Yes Social History Home: Assisted Living ([facility]) ADL-Prior Level of Function Functional [place] Measure 0=Not Assessed/NA 4=Minimal Assistance 1=Total Assistance 5=Supervision or Setup 2=Maximal Assistance 6=Modified [place] 3=Moderate Assistance 7=Complete [place] ADL PLOF Comments Pt reported that she had help with bathing but was able to manage dressing, toileting, feeding. She doesn't need to do cooking, laundry, cleaning due to living at [facility]. She reported that she doesn't drive and is retired but was unable to tell us where she worked or what she did. DME/Equipment Comments Unknown DME. Bathroom is most likely accessible OT Current Status Subjective Pt seen in room, up in recliner, agreeable to OT. Pain reported 0/10 Appearance Alert, pleasant Mental Status/Objective Patient Orientation: Person (cues to identify birthday), Place ("[facility], I think" but did not know reason she was here) Attachments: IV Current Glasses/Contacts: Yes Hearing Aids: No Dentures/Partials: No Hand Dominance: Right Upper Extremity ROM Grossly WFL except appears to be limited R shoulder Upper Extremity Strength Grossly 4/5 bilat, with some difficulty following instructions. ADL-Treatment ADL-Current Pt was able to transfer from bed to recliner with mod assist with PT but was unable to maintain her TTWB status. She reported that she has been able to feed herself without difficulty. Functional [place] Measure 0=Not Assessed/NA 4=Minimal Assistance 1=Total Assistance 5=Supervision or Setup 2=Maximal Assistance 6=Modified [place] 3=Moderate Assistance 7=Complete IndependenceIRFPAI Quality Coding Scale 6 Independent with activity with or without an assistive device 5 Patient requires set up or clean up by helper. Patient completes activity by themselves 4 Supervision or touching assist (CGA). [place] provide cues , steadying assist 3 The helper provides less than half the effort to complete the activity 2 The helper provides more than half the effort to complete the activity 1 Dependent. The helper does all the effort to complete an activity 7 Patient refused to complete or attempt activity 9 The patient did not perform the activity before the current illness or injury 88 Not attempted due to Medical conditions or safety concerns Education OT Patient Education: Purpose of tx/functional activities, Rehab process Teaching Recipient: Patient Teaching Methods: Discussion Response to Teaching: Verbalize Understanding OT Sales And Marketing Agent Goals Sales And Marketing Agent Goals Time Frame: Apr 28, 2018 Eating (FIM): 6 Grooming(FIM): 5 Bathing(FIM): 4 Upper Body Dressing(FIM): 5 Lower Body Dressing(FIM): 4 Toileting(FIM): 4 Toilet/Commode Transfer(FIM): 4 Shower Transfer(FIM): 4 Additional Goals: 1-Demonstrate ADL Tasks, 2-Verbalize Understanding, 3- ImproveStrength/Yunier 1=Demonstrate adherence to instructed precautions during ADL tasks. 2=Patient will verbalize/demonstrate understanding of assistive devices/ modifications for ADL. 3=Patient will improve strength/tolerance for activity to enable patient to perform ADL's. OT Education/Plan Problem List/Assessment Assessment: Decreased Safety Aware, Decreased UE Strength, Dependent Transfers , Impaired Cognition, Impaired Self-Care Skills Pt would benefit from skilled OT to increase her independence in basic self care to allow her to safely return to her home at [facility] Recommendations Plan/Recommendations: Continue POC Therapy D/C Recommendations: Jail (TCU/NH) Target Placement Recommend skilled care due to patient's difficulty maintaining weight bearing precautions Treatment Plan/Plan of Care Treatment,Training & Education: Yes Patient would benefit from OT for education, treatment and training to promote independence in ADL's, mobility, safety and/or upper extremity function for ADL' s. Plan of Care: ADL Retraining, Functional Mobility, UE Funct Exercise/Act, UE Neuromus Re-Ed/Coord Treatment Duration: Apr 28, 2018 Frequency: 5 times per week Estimated Hrs Per Day: .5 hour per day Agreement: Yes Rehab Potential: Guarded Time/GCodes Start Time: 09:53 Stop Time: 10:04 Total Time Billed (hr/min): 11 Billed Treatment Time visit, 11 minutes evaluation moderate intensity ANGELIQUE CASTILLO OT Apr 21, 2018 10:54
[2018-04-21 11:55] VITALS: BP 141/65
--- NOTE | 2018-04-21 14:05 | Physical Therapy Daily Note ---
PT Daily Note-Current Subjective Patient was awake and agreed to doing some bed mobility. Pain Numeric Pain Scale: 5-Moderate Pain Location: Left, Joint Location Body Site: Thigh Mental Status Patient Orientation: Confused, Eyes Open Attachments: IV Transfers Functional [place] Measure 0=Not Assessed/NA 4=Minimal Assistance 1=Total Assistance 5=Supervision or Setup 2=Maximal Assistance 6=Modified [place] 3=Moderate Assistance 7=Complete IndependenceIRFPAI Quality Coding Scale 6 Independent with activity with or without an assistive device 5 Patient requires set up or clean up by helper. Patient completes activity by themselves 4 Supervision or touching assist (CGA). [place] provide cues , steadying assist 3 The helper provides less than half the effort to complete the activity 2 The helper provides more than half the effort to complete the activity 1 Dependent. The helper does all the effort to complete an activity 7 Patient refused to complete or attempt activity 9 The patient did not perform the activity before the current illness or injury 88 Not attempted due to Medical conditions or safety concerns Weight Bearing Right Lower Extremity: Right Full Weight Bearing Left Lower Extremity: Left Touch Toe Bearing Gait Training Distance (FIM): 0=does not occure Wheelchair Training Wheelchair Distance: 0=does not occure Exercises Supine Ex: Heel Slides, Knee to chest, Straight leg raise Supine Reps: 10 Assessment Patient was able to tolerate exercises but mentioned some pain in the the left thigh. Patient became agitated part way through visit and were no longer able to continue. Patient will benefit from continued exercise to progress overall function. PT Short Term Goals Short Term Goals Time Frame: Apr 21, 2018 PT Long-Term Goals Long-Term Goals PT Lead Instructor/Flight Attendant Goals Time Frame: Apr 29, 2018 Transfers (B,C,W/C) (FIM): 4 Gait (FIM): 1 Gait distance (FIM): 1=up to 49 ft Distance: 10' Gait Level of Assist: 4 Gait Assistive Device: FWW PT Plan Treatment/Plan Treatment Plan: Continue Plan of Care Treatment Plan: Bed Mobility, Education, Functional Activity Yunier, Functional Strength, Gait, Safety, Therapeutic Exercise, Transfers Treatment Duration: Apr 29, 2018 Frequency: 11 times per week Estimated Hrs Per Day: .5 hour per day Patient and/or Family Agrees t: Yes Time/GCodes Time In: 1306 Time Out: 1320 Total Billed Treatment Time: 14 Total Billed Treatment 1 visit FA 14 mins G Codes Necessary: ANTONIETTA Gaston PT Apr 21, 2018 14:05
[2018-04-21 16:00] VITALS: BP 142/64
[2018-04-21 20:00] VITALS: BP 142/65
[2018-04-21] MEDS: QUEtiapine 25 MG (SEROquel) TAB IMMEDIATE RELEASE PO SCH (20:15)
[2018-04-21] MEDS: ACETAMINOPHEN 500 MG TAB (TYLENOL) PO PRN (20:18)
[2018-04-22 00:05] VITALS: BP 124/70
[2018-04-22] MEDS: LACTATED RINGERS 1,000 ML IV SCH ×2 (02:38→07:21)
[2018-04-22 04:30] VITALS: BP 140/63
--- NOTE | 2018-04-22 06:00 | Progress Note (SOAP) ---
Subjective Date Seen by a Provider: Apr 22, 2018 Time Seen by a Provider: 05:59 Subjective/Events-last exam POD #2, s/p left hip perc pinning Review of Systems Neurological: Confusion Focused Exam Lactate Level 04/19/18 20:15: Lactic Acid Level 1.76 Objective Exam Vital Signs Date Time Temp Pulse Resp B/P (MAP) Pulse Ox O2 Delivery O2 Flow Rate FiO2 04/22/18 04:30 97.7 60 18 140/63 (88) 94 Room Air 04/22/18 00:05 98.1 71 18 124/70 (88) 93 Room Air 04/21/18 20:00 98.8 68 18 142/65 (90) 94 Room Air 04/21/18 16:00 98.6 66 18 142/64 (90) 94 Room Air 04/21/18 11:55 98.9 80 18 141/65 (90) 93 Room Air 04/21/18 08:00 Room Air 04/21/18 08:00 98.3 67 18 147/65 (92) 92 Room Air I & O 04/22/18 07:00 Intake Total 850 ml Balance 850 ml Capillary Refill : Less Than 3 SecondsLess Than 3 Seconds General Appearance: No Apparent Distress Extremity: Non Tender, No Calf Tenderness Neurologic/Psychiatric: Alert, No Motor/Sensory Deficits, Normal Mood/Affect, Disoriented Skin: Other (Dressing CDI) Results Lab Microbiology 04/19/18 Blood Culture - Preliminary, Resulted No growth Assessment/Plan Assessment/Plan Assess & Plan/Chief Complaint Impacted left hip fracture S/P left hip percutaneous pinning Dementia Discharge when arrangements made Clinical Quality Measures DVT/VTE Risk/Contraindication: Risk Factor Score Per Nursin RFS Level Per Nursing on Admit: 4+=Very High BHUPINDER LU Apr 22, 2018 06:00
[2018-04-22] MEDS: ENOXAPARIN 30 MG/0.3 ML (LOVENOX) SYR SC SCH (06:20)
[2018-04-22 08:00] VITALS: BP 155/80
--- NOTE | 2018-04-22 10:36 | Occ Therapy Progress Note ---
Therapy Progress Note Pt unable to state where she was, what time it is and why she is here. Pt stated that she is here because of a piece of paper. Attempted to get pt to complete UE exercises, pt stated if that's what you want to do then proceeded to talk to self. Would not follow direction. Reported to [facility]. 1 visit [phone] COLLEEN VILLAGOMEZ Apr 22, 2018 10:36
[2018-04-22] MEDS ORDERED: ALPR0.25 PO (10:41)
[2018-04-22] MEDS ORDERED: TRAM50TA2 PO (10:41)
[2018-04-22] MEDS ORDERED: LACT20SO2 PO (10:41)
[2018-04-22] MEDS ORDERED: ENOX30DI4 SC (10:41)
--- NOTE | 2018-04-22 10:43 | Discharge Inst-Skilled Nursing ---
Discharge Inst-Skilled NF Patient Instructions Patient Problems: left hip fracture Dementia severe Constipation Goal: Stablize and return to independent activities Consult/Follow Up/Orders Follow Up Appt.: Dr Barfield for [place] rounds Skilled NF Admit to: [facility] [place] Certification ([facility]) I certify that SNF services are required to be given on an inpatient basis because of the above named patient's need for fci care on a continuing basis for the conditions(s) for which he/she was receiving inpatient hospital services prior to his/her transfer to the SNF. Long-Term Facility Order: Nursing Services, Aerospace Mechanic-Evaluate & Treat, Physical Therapy-Evaluate & Treat, Speech Language-Evaluate & Treat Discharge Diet: No Restrictions Daily Activity as Tolerated: Yes New & Resume Previous Orders Jeanette Tabares Apr 22, 2018 10:42 Pneu Vac Indicated: Yes JEANETTE TABARES DO Apr 22, 2018 10:43
--- NOTE | 2018-04-22 10:44 | Discharge Summary-Hospitalist ---
Diagnosis/Chief Complaint Date of Admission Apr 19, 2018 at 16:30 Date of Discharge Discharge Date: Apr 22, 2018 Admission Diagnosis Subcapital fracture left hip. 2.dementia. 3.history of hypertension. Discharge Diagnosis (1) Hip fracture, left Status: Acute (2) Hypertension Status: Chronic (3) Dementia Status: Chronic (4) Delirium Status: Acute (5) Weakness generalized Status: Acute Discharge Summary Discharge Physical Exam Allergies: Coded Allergies: No Known Drug Allergies (Unverified , 04/19/18) Vitals & I&Os Vital Signs Date Time Temp Pulse Resp B/P (MAP) Pulse Ox O2 Delivery O2 Flow Rate FiO2 04/22/18 12:00 99.4 72 20 141/61 (87) 98 Room Air 04/20/18 15:41 2.00 General Appearance: No Apparent Distress, WD/WN, Chronically ill Respiratory: Chest Non Tender, Lungs Clear, Normal Breath Sounds, No Accessory Muscle Use, No Respiratory Distress Cardiovascular: Regular Rate, Rhythm, No Edema, No Gallop, No JVD, No Murmur, Normal Peripheral Pulses Skin: Normal Color, Warm/Dry Neurologic/Psychiatric: Alert Hospital Course Hospital course: patient had a standard hospital course. She was admitted for left hip fracture and had an uncomplicated repair but due to dementia and other co-morbidities she has a very poor prognosis and minimal expectation of recovery. Pt was deemed stable at day of DC to rehab facility and all DC meds reviewed and deemed correct. Labs (last 24 hrs) Microbiology 04/19/18 Blood Culture - Preliminary, Resulted No growth Patient resulted labs reviewed. Discussion & Recommendations Discharge Planning: <30 minutes discharge planning Discharge Home Medications: Active Scripts Active Lactulose 20 Gm/30 Ml Solution 20 Gm PO TID 3 Days Tramadol HCl 50 Mg Tablet 50 Mg PO Q4H PRN Enoxaparin Sodium 30 Mg/0.3 Ml Syringe 30 Mg SC BID@0600,1800 14 Days Xanax (Alprazolam) 0.25 Mg Tablet 0.25 Mg PO 0530,1400 Reported Ondansetron Odt (Ondansetron) 8 Mg Tab.rapdis 8 Mg PO Q8H PRN Milk of Magnesia (Magnesium Hydroxide) 400 Mg/5 Ml Oral.susp 30 Ml PO DAILY PRN Tylenol Extra Strength (Acetaminophen) 500 Mg Tablet 1,000 Mg PO Q4H PRN Aspirin EC (Aspirin) 81 Mg Tablet.dr 81 Mg PO DAILY Citalopram HBr (Citalopram Hydrobromide) 40 Mg Tablet 40 Mg PO DAILY Seroquel (Quetiapine Fumarate) 25 Mg Tablet 25 Mg PO HS Acetaminophen 500 Mg Tablet 1,000 Mg PO HS TAKES 2 (500MG) TABLETS Crestor (Rosuvastatin Calcium) 20 Mg Tablet 20 Mg PO HS Aricept (Donepezil HCl) 10 Mg Tablet 10 Mg PO HS Amitiza (Lubiprostone) 24 Mcg Capsule 24 Mcg PO BID Colace (Docusate Sodium) 100 Mg Capsule 100 Mg PO BID Namenda (Memantine HCl) 10 Mg Tablet 10 Mg PO BID B-12 (Cyanocobalamin (Vitamin B-12)) 500 Mcg Tablet 1,000 Mcg PO DAILY Amlodipine Besylate 10 Mg Tablet 10 Mg PO DAILY Lisinopril 20 Mg Tablet 20 Mg PO DAILY Levothyroxine Sodium 25 Mcg Tablet 25 Mcg PO DAILY Instructions to patient/family Please see electronic discharge instructions given to patient. Clinical Quality Measures DVT/VTE Risk/Contraindication: Risk Factor Score Per Nursin RFS Level Per Nursing on Admit: 4+=Very High Problem Qualifiers (1) Hip fracture, left: Encounter type: subsequent encounter Fracture type: closed Fracture healing : with routine healing Qualified Codes: S72.002D - Fracture of unspecified part of neck of left femur, subsequent encounter for closed fracture with routine healing (2) Hypertension: Hypertension type: essential hypertension Qualified Codes: I10 - Essential ( primary) hypertension (3) Dementia: Dementia type: unspecified type Dementia behavioral disturbance: without behavioral disturbance Qualified Codes: F03.90 - Unspecified dementia without behavioral disturbance SATYA SIDDIQUI DO Apr 22, 2018 10:43
--- NOTE | 2018-04-22 10:52 | Physical Therapy Daily Note ---
PT Daily Note-Current Subjective Pt laying Supine but feet hanging off bed upon arrival. RN TESTING asked to try to reposition pt but pt told RN TESTING to keep her "hands off". RN TESTING attempted some Supine EX but it was very limited due to cognitive status of pt. Mental Status Patient Orientation: Person, Confused Pt talking to self and incoherent to RN TESTING. Transfers Functional [place] Measure 0=Not Assessed/NA 4=Minimal Assistance 1=Total Assistance 5=Supervision or Setup 2=Maximal Assistance 6=Modified [place] 3=Moderate Assistance 7=Complete IndependenceIRFPAI Quality Coding Scale 6 Independent with activity with or without an assistive device 5 Patient requires set up or clean up by helper. Patient completes activity by themselves 4 Supervision or touching assist (CGA). [place] provide cues , steadying assist 3 The helper provides less than half the effort to complete the activity 2 The helper provides more than half the effort to complete the activity 1 Dependent. The helper does all the effort to complete an activity 7 Patient refused to complete or attempt activity 9 The patient did not perform the activity before the current illness or injury 88 Not attempted due to Medical conditions or safety concerns Weight Bearing Right Lower Extremity: Right Full Weight Bearing Left Lower Extremity: Left Touch Toe Bearing Exercises Supine Ex: Ankle pumps, Heel Slides, Hip abd/add Supine Reps: 10 Treatments RN TESTING attempted to try to assist pt with repositioning and Supine Ex but pt would pull away and told RN TESTING to "keep hands off". RN TESTING discontinued tx at that time. Assessment Current Status: Poor Progress Pt talked incoherently to self, mumbled a lot through tx. Pt refused to let RN TESTING help with tx or try to complete many Ex. PT Short Term Goals Short Term Goals Time Frame: Apr 21, 2018 PT Custodial Goals Hand Cementer Goals PT Custodial Goals Time Frame: Apr 29, 2018 Transfers (B,C,W/C) (FIM): 4 Gait (FIM): 1 Gait distance (FIM): 1=up to 49 ft Distance: 10' Gait Level of Assist: 4 Gait Assistive Device: FWW PT Plan Problem List Problem List: Activity Tolerance, Functional Strength, Safety, Balance, Gait, Transfer, Bed Mobility, ROM Treatment/Plan Treatment Plan: Continue Plan of Care Treatment Plan: Bed Mobility, Education, Functional Activity [place], Functional Strength, Gait, Safety, Therapeutic Exercise, Transfers Treatment Duration: Apr 29, 2018 Frequency: 11 times per week Estimated Hrs Per Day: .5 hour per day Patient and/or Family Agrees t: Yes Safety Risks/Education Patient Education: Safety Issues Teaching Recipient: Patient Teaching Methods: Discussion Response to Teaching: Reinforcement Needed Time/GCodes Time In: 1027 Time Out: 1035 Total Billed Treatment Time: 8 Total Billed Treatment 1, EX (8m) G Codes Necessary: CARMEN Dahl RN TESTING Apr 22, 2018 10:52
[2018-04-22 12:00] VITALS: BP 141/61
== END 2018-04-22 14:30 | DRG 481 ==
LOC: EDUNIT# 15:51 → ER 15:52 → 4TH 16:30
PROVIDERS: ADMIT Orthopaedic Surgery Orthopaedic Surgery of the Spine; ATTEND Orthopaedic Surgery Orthopaedic Surgery of the Spine
PROC: 0QH734Z Insertion of Internal Fixation Device into Left Upper Femur, Percutaneous Approach (ICD-10-PCS; principal; 2018-04-20 12:34)
DX: S72.012A Unspecified intracapsular fracture of left femur, initial encounter for closed fracture (principal); I10 Essential (primary) hypertension; E03.9 Hypothyroidism, unspecified; F03.90 Unspecified dementia, unspecified severity, without behavioral disturbance, psychotic disturbance, mood disturbance, and anxiety; F05 Delirium due to known physiological condition; G40.909 Epilepsy, unspecified, not intractable, without status epilepticus; E78.00 Pure hypercholesterolemia, unspecified; C55 Malignant neoplasm of uterus, part unspecified; R26.9 Unspecified abnormalities of gait and mobility; Z66 Do not resuscitate; K59.00 Constipation, unspecified; R41.0 Disorientation, unspecified; R29.6 Repeated falls; R53.1 Weakness; W18.30XA Fall on same level, unspecified, initial encounter; Y92.129 Unspecified place in nursing home as the place of occurrence of the external cause; Z92.3 Personal history of irradiation
CPT/HCPCS: 36415; 51702; 72192; 80048; 83605; 85025; 87040; 94664

== ENCOUNTER → 2018-07-07 | Outpatient (CLI) | payer MEDICARE, OTHER ==
[~2018-07-07] MED LIST changes: +ACET-2267 PO; +ACET-93 PO; +ALPR0.25 PO; +ALPR0.254 PO; +AMLO10TA6 PO; +ASPI-983 PO; +CITA40TA11 PO; +CYAN500T44 PO; +DOCU-143 PO; +DONE10TA12 PO; +ENOX30DI4 SC; +LACT20SO2 PO; +LOPE-134 PO; +LUBI24CA6 PO; +MAGN400O7 PO; +MEMA10TA2 PO; +ONDA8TAB13 PO; +QUET25TA PO; +ROSU20TA PO; +TRAM50TA2 PO
== END ==
LOC: LABNPT 16:07
DX: D64.9 Anemia, unspecified (principal)
CPT/HCPCS: 82274

== ENCOUNTER → 2018-07-21 | Outpatient (CLI) | payer MEDICARE, OTHER ==
--- NOTE | 2018-07-21 18:10 | Diagnostic Imaging Report ---
EXAMINATION: Pelvic ultrasound. INDICATION: Endometrial carcinoma. FINDINGS: The previous pelvic ultrasound exam of 01/19/2018 noted several fibroids involving the uterus. The endometrium was not well visualized on the previous study. Reportedly, in the interval since the prior exam, a diagnosis of endometrial carcinoma has been established. The uterus measures 8.5 x 6.1 x 5.4 cm. The endometrium does appear thickened measuring 25 mm (normal postmenopausal endometrial thickness 5 mm or less). The endometrium also has a heterogeneous appearance with some increased vascularity. This appearance would coincide with the patient's diagnosis of endometrial carcinoma. The suspected fibroids seen on the prior study are again evident and do not appear to have changed significantly. Neither ovary was visualized. There is no pelvic mass or free fluid collection evident. IMPRESSION: 1. The endometrial lining is thickened and has an irregular appearance. There is also increased vascularity. These findings would coincide with the patient's diagnosis of endometrial carcinoma. 2. The uterus is similar in size to the prior exam. Several fibroids are again evident. 3. Neither ovary was identified. 4. There is no pelvic mass or free fluid to suggest an acute abnormality. Dictated by: Dictated on workstation # [id number]
== END ==
LOC: RAD 11:18
PROVIDERS: ATTEND Student in an Organized Health Care Education/Training Program
DX: C54.1 Malignant neoplasm of endometrium (principal); D25.9 Leiomyoma of uterus, unspecified
CPT/HCPCS: 76830; 76856

== ENCOUNTER 2018-08-19 14:52 | Emergency (ER) | payer MEDICARE, OTHER ==
[~2018-08-19] VITALS: Ht 165.1 cm; Wt 54.4 kg
[~2018-08-19 14:52] MED LIST changes: -AMLO10TA6 PO; +AMLO10TA7 PO
--- NOTE | 2018-08-19 14:52 | NUR ---
PT TAKEN TO CT BY EMS UPON ARRIVAL.
--- NOTE | 2018-08-19 14:58 | NUR ---
SEE COPY FOR MED LIST
--- NOTE | 2018-08-19 15:07 | ED Fall/Injury ---
General Chief Complaint: fall Stated Complaint: FALL Source: EMS, skilled nursing records Exam Limitations: no limitations History of Present Illness Date Seen by Provider: Aug 19, 2018 Time Seen by Provider: 15:06 Initial Comments To ER per EMS from [facility] with reports of a fall and right sided facial bruising. She has questionable left-sided facial droop per EMS assessment. She also has a right shoulder deformity. Occurred: just prior to arrival Severity: moderate Injuries/Pain Location: head, face, upper extremity Context: unknown Loss of Consciousness: unsure Associated Symptoms (Fall): Confusion (seems a bit more lethargic than usual) Allergies and Home Medications Allergies Coded Allergies: No Known Drug Allergies (Unverified , 04/19/18) Home Medications Acetaminophen 500 Mg Tablet, 1,000 MG PO HS, (Reported) TAKES 2 (500MG) TABLETS Acetaminophen 500 Mg Tablet, 1,000 MG PO Q4H PRN for PAIN-MILD OR TEMPATURE, ( Reported) Alprazolam 0.25 Mg Tablet, 0.25 MG PO 0530,1400 Prescribed by: SATYA SIDDIQUI on 04/22/18 1041 Amlodipine Besylate 10 Mg Tablet, 10 MG PO DAILY, (Reported) Aspirin 81 Mg Tablet.dr, 81 MG PO DAILY, (Reported) Cefuroxime Axetil 250 Mg Tablet, 250 MG PO BID Prescribed by: ANOOP MARTE on 08/19/18 1643 Citalopram Hydrobromide 40 Mg Tablet, 40 MG PO DAILY, (Reported) Cyanocobalamin (Vitamin B-12) 500 Mcg Tablet, 1,000 MCG PO DAILY, (Reported) Docusate Sodium 100 Mg Capsule, 100 MG PO BID, (Reported) Donepezil HCl 10 Mg Tablet, 10 MG PO HS, (Reported) Enoxaparin Sodium 30 Mg/0.3 Ml Syringe, 30 MG SC BID@0600,1800 Prescribed by: SATYA SIDDIQUI on 04/22/18 1041 Lactulose 20 Gm/30 Ml Solution, 20 GM PO TID Prescribed by: SATYA SIDDIQUI on 04/22/18 1041 Levothyroxine Sodium 25 Mcg Tablet, 25 MCG PO DAILY, (Reported) Lisinopril 20 Mg Tablet, 20 MG PO DAILY, (Reported) Lubiprostone 24 Mcg Capsule, 24 MCG PO BID, (Reported) Magnesium Hydroxide 400 Mg/5 Ml Oral.susp, 30 ML PO DAILY PRN for CONSTIPATION- 7TH LINE, (Reported) Memantine HCl 10 Mg Tablet, 10 MG PO BID, (Reported) Ondansetron 8 Mg Tab.rapdis, 8 MG PO Q8H PRN for NAUSEA/VOMITING-1ST LINE, ( Reported) Quetiapine Fumarate 25 Mg Tablet, 25 MG PO HS, (Reported) Rosuvastatin Calcium 20 Mg Tablet, 20 MG PO HS, (Reported) Tramadol HCl 50 Mg Tablet, 50 MG PO Q4H PRN for PAIN-MODERATE Prescribed by: SATYA SIDDIQUI on 04/22/18 1041 Patient Home Medication List Home Medication List Reviewed: Yes Review of Systems Review of Systems Constitutional: see HPI Eyes: No Symptoms Reported Ears, Nose, Mouth, Throat: no symptoms reported Respiratory: no symptoms reported Cardiovascular: no symptoms reported Genitourinary: no symptoms reported Musculoskeletal: no symptoms reported Skin: no symptoms reported Psychiatric/Neurological: No Symptoms Reported Past Bpfheih-Mzgmwa-Biisfq Hx Patient Social History 2nd Hand Smoke Exposure: No Recent Hopitalizations: No Immunizations Up To Date Tetanus Booster (TDap): Unknown PED Vaccines UTD: Yes Seasonal Allergies Seasonal Allergies: No Past Medical History Surgeries: Yes (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 AT ) Respiratory: No Cardiac: Yes High Cholesterol, Hypertension Neurological: Yes Dementia, Seizure Disorder Reproductive Disorders: Yes (UTERINE CANCER) Female Reproductive Disorders: Denies 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 No Pertinent Family Hx Physical Exam Vital Signs Vital Signs - First Documented 08/19/18 14:52 Temp 97.2 Pulse 72 Resp 16 B/P (MAP) 113/60 (77) Pulse Ox 99 Capillary Refill : Height, Weight, BMI Height: 5'4.00" Weight: 150lbs. 0.0oz. 68.000855bi; 25.8 BMI Method:Estimated General Appearance: WD/WN, no apparent distress HEENT: PERRL/EOMI, normal ENT inspection, other (she has some yellowish discolored bruising to the right maxilla consistent with an older bruise not from today's injury) Neck: non-tender, full range of motion Respiratory: normal breath sounds, no respiratory distress, no accessory muscle use Gastrointestinal: normal bowel sounds, non tender Extremities: normal range of motion, non-tender, other (she moves the left arm and leg without any weakness, there is no apparent left facial droop to me, she is confused per baseline. She does have deformity to the right shoulder) Neurologic/Psychiatric: alert Skin: normal color, warm/dry Caroline Coma Score Best Eye Response: (4) Open Spontaneously Best Verbal Response: (4) Confused Conversation Best Motor Response: (6) Obeys Commands Caroline Total: 14 Progress/Results/Core Measures Results/Orders Lab Results Laboratory Tests Test 08/19/18 14:50 08/19/18 15:40 Range/Units White Blood Count 7.4 4.3-11.0 10^3/uL Red Blood Count 3.22 L 4.35-5.85 10^6/uL Hemoglobin 9.7 L 11.5-16.0 G/DL Hematocrit 30 L 35-52 % Mean Corpuscular Volume 94 80-99 FL Mean Corpuscular Hemoglobin 30 25-34 PG Mean Corpuscular Hemoglobin Concent 32 32-36 G/DL Red Cell Distribution Width 15.5 H 10.0-14.5 % Platelet Count 506 H 130-400 10^3/uL Mean Platelet Volume 9.2 7.4-10.4 FL Neutrophils (%) (Auto) 79 H 42-75 % Lymphocytes (%) (Auto) 12 12-44 % Monocytes (%) (Auto) 7 0-12 % Eosinophils (%) (Auto) 1 0-10 % Basophils (%) (Auto) 1 0-10 % Neutrophils # (Auto) 5.9 1.8-7.8 X 10^3 Lymphocytes # (Auto) 0.9 L 1.0-4.0 X 10^3 Monocytes # (Auto) 0.5 0.0-1.0 X 10^3 Eosinophils # (Auto) 0.1 0.0-0.3 10^3/uL Basophils # (Auto) 0.1 0.0-0.1 10^3/uL Prothrombin Time 13.2 12.2-14.7 SEC INR Comment 1.0 0.8-1.4 Activated Partial Thromboplast Time 35 24-35 SEC Sodium Level 136 135-145 MMOL/L Potassium Level 4.3 3.6-5.0 MMOL/L Chloride Level 102 98-107 MMOL/L Carbon Dioxide Level 26 21-32 MMOL/L Anion Gap 8 5-14 MMOL/L Blood Urea Nitrogen 29 H 7-18 MG/DL Creatinine 0.91 0.60-1.30 MG/DL Estimat Glomerular Filtration Rate 59 BUN/Creatinine Ratio 32 Glucose Level 135 H 70-105 MG/DL Calcium Level 9.0 8.5-10.1 MG/DL Corrected Calcium 9.6 8.5-10.1 MG/DL Magnesium Level 2.0 1.8-2.4 MG/DL Total Bilirubin 0.3 0.1-1.0 MG/DL Aspartate Amino Transf (AST/SGOT) 17 5-34 U/L Alanine Aminotransferase (ALT/SGPT) 11 0-55 U/L Alkaline Phosphatase 78 40-136 U/L Total Protein 6.5 6.4-8.2 GM/DL Albumin 3.2 3.2-4.5 GM/DL Thyroid Stimulating Hormone (TSH) 1.34 0.35-4.94 UIU/ML Urine Color YELLOW Urine Clarity VERY CLOUDY H Urine pH 6 5-9 Urine Specific [place] 1.020 1.016-1.022 Urine Protein 3+ H NEGATIVE Urine Glucose (UA) NEGATIVE NEGATIVE Urine Ketones 1+ H NEGATIVE Urine Nitrite NEGATIVE NEGATIVE Urine Bilirubin 1+ H NEGATIVE Urine Urobilinogen 4 H NORMAL MG/DL Urine Leukocyte Esterase 3+ H NEGATIVE Urine RBC (Auto) 5+ H NEGATIVE Urine RBC >100 H /HPF Urine WBC >100 H /HPF Urine Squamous Epithelial Cells 5-10 /HPF Urine Crystals NONE /LPF Urine Bacteria MODERATE H /HPF Urine Casts NONE /LPF Urine Mucus NEGATIVE /LPF Urine Culture Indicated YES Micro Results Microbiology 08/19/18 Urine Culture - Preliminary, Resulted Proteus species My Orders Orders - ANOOP MARTE APRN Ct Head/Cervical Spine Wo (08/19/18 14:56) Chest 1 View, Ap/Pa Only (08/19/18 15:04) Shoulder, Right, 3 Views (08/19/18 15:04) Cbc With Automated Diff (08/19/18 15:04) Comprehensive Metabolic Panel (08/19/18 15:04) Ua Culture If Indicated (08/19/18 15:04) Iv Heplock-Insert (Order) (08/19/18 15:04) Magnesium (08/19/18 15:04) Thyroid Stimulating Hormone (08/19/18 15:04) Ekg Tracing (08/19/18 15:04) Protime With Inr (08/19/18 15:04) Partial Thromboplastin Time (08/19/18 15:04) Ns Iv 500 Ml (Sodium Chloride 0.9%) (08/19/18 15:45) Etomidate Injection (Amidate Injection) (08/19/18 15:45) Urine Culture (08/19/18 15:40) Ceftriaxone For Iv Use (Rocephin For I (08/19/18 16:45) Vital Signs/I&O 08/19/18 08/19/18 14:52 16:59 Temp 97.2 Pulse 72 70 Resp 16 18 B/P (MAP) 113/60 (77) 104/59 (74) Pulse Ox 99 99 08/20/18 00:00 Intake Total 200 ml Balance 200 ml Diagnostic Imaging Diagonstic Imaging: Xray Comments NAME: ENRIQUETA PIRES MED REC#: [id number] PT STATUS: REG ER : 1935 PHYSICIAN: ANOOP MARTE APRN ADMIT DATE: 08/19/18/ER Draft Date of Exam:08/19/18 CT HEAD/CERVICAL SPINE WO PROCEDURE: CT head and CT cervical spine without contrast. TECHNIQUE: Multiple contiguous axial images were obtained through the brain and cervical spine without the use of intravenous contrast. Sagittal and coronal reformations through the cervical spine were then performed. INDICATION: Fall. Left facial droop. Lethargy. Aphasia. Trauma. COMPARISON: CT head dated 03/13/2018. FINDINGS: CT head: The ventricles and cortical sulci are diffusely prominent, compatible with age-related volume loss. There are confluent areas of abnormal, low attenuation in the periventricular white matter. This is consistent with chronic small vessel ischemic changes. There is no midline shift or mass-effect. No acute intra-axial hemorrhage is seen. There are no abnormal areas of increased or decreased density to suggest acute hemorrhage or edema. No extra-axial masses or collections are present. The bony calvarium is intact. The visualized paranasal sinuses are unremarkable. The mastoid air cells are clear. CT cervical spine: Evaluation of the static alignment demonstrates straightening with slight reversal of normal lordotic curvature of the cervical spine. There is also slight grade 1 retrolisthesis at C3-C4. There is no evidence of jumped facets. Vertebral body heights are maintained. There is no evidence of acute fracture. No bony fragments are seen within the spinal canal. There are advanced multilevel degenerative changes of the cervical spine consistent with intervertebral disc height loss with anterior and posterior disc osteophyte complex formations, as well as multilevel facet arthropathy. These changes appear greatest at the C3-C4 level. There is also large partially calcified pannus formation posterior to the dens; likely degenerative in nature as well. This is stable when compared to 06/11/2016. Pre- and para-vertebral soft tissue structures are unremarkable. Note is made of calcified carotid atherosclerosis. Included portions of the lung apices show no additional acute abnormalities. IMPRESSION: 1. No acute intracranial abnormality. No CT evidence of mass, acute infarct, or intracranial hemorrhage. 2. Chronic small vessel ischemic changes in the deep white matter. 3. No acute fracture or dislocation of the cervical spine. 4. Advanced multilevel degenerative changes of the cervical spine, greatest at C3-C4. Dictated on workstation # [id number] Dict: 08/19/18 1510 Trans: 08/19/18 1520 [id number] Interpreted by: HOLLEY STOVALL MD Electronically signed by: NAME: ENRIQUETA PIRES [facility] REC#: [id number] PT STATUS: REG ER : 1935 PHYSICIAN: ANOOP MARTE APRN ADMIT DATE: 08/19/18/ER Draft Date of Exam:08/19/18 CHEST 1 VIEW, AP/PA ONLY INDICATION: Fall with right shoulder deformity. TIME OF EXAM: 03:09 p.m. The heart size is normal. The lungs are clear. Pulmonary vascularity is normal. No infiltrate, effusion or pneumothorax is seen. IMPRESSION: No acute bony abnormality is detected. Dictated on workstation # [id number] Dict: 08/19/18 1522 Trans: 08/19/18 1524 [facility] [id number] Interpreted by: MATTI ALANIS MD Electronically signed by: NAME: ENRIQUETA PIRES [facility] REC#: [id number] PT STATUS: REG ER : 1935 PHYSICIAN: ANOOP MARTE APRN ADMIT DATE: 08/19/18/ER Draft Date of Exam:08/19/18 SHOULDER, RIGHT, 3 VIEWS INDICATION: Fall with shoulder deformity. TIME OF EXAM: 3:11 p.m. EXAMINATION: Three views of the right shoulder were obtained. FINDINGS: The humeral head appears to be position anteriorly on the scapular Y-view suggestive of an anterior dislocation/subluxation. No fracture is seen. Acromioclavicular alignment is normal. IMPRESSION: There are findings suggestive of an anterior right shoulder dislocation/subluxation. No fracture is detected. 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 We will not attempt reduction Impression Primary Impression: Fall Qualified Codes: W19.XXXA - Unspecified fall, initial encounter Additional Impression: Urinary tract infection Qualified Codes: N30.00 - Acute cystitis without hematuria Disposition: HOME, SELF-CARE Condition: Stable Departure-Patient Inst. Decision time for Depature: 16:16 Referrals: HUBER LEAHY MD (PCP/Family) Primary Care Physician Patient Instructions: Preventing Falls, Urinary Tract Infection, Adult (DC) Add. Discharge Instructions: 1. Antibiotic as directed 2. Return to ER for any concerns. Scripts Cefuroxime Axetil (Cefuroxime) 250 Mg Tablet 250 MG PO BID, #10 TAB Prov: ANOOP MARTE APRN 08/19/18 ANOOP MARTE APRN Aug 19, 2018 15:07
[2018-08-19 15:15] LABS: BASOPHILS # (AUTO) 0.1 10^3/uL (0.0-0.1); BASOPHILS % (AUTO) 1 % (0-10); EOSINOPHILS # (AUTO) 0.1 10^3/uL (0.0-0.3); EOSINOPHILS % (AUTO) 1 % (0-10); HEMATOCRIT 30 % (35-52); HEMOGLOBIN 9.7 G/DL (11.5-16.0); LYMPHOCYTES # (AUTO) 0.9 X 10^3 (1.0-4.0); LYMPHOCYTES % (AUTO) 12 % (12-44); MEAN CORPUSCULAR HEMOGLOBIN 30 PG (25-34); MEAN CORPUSCULAR HGB CONC 32 G/DL (32-36); MEAN CORPUSCULAR VOLUME 94 FL (80-99); MEAN PLATELET VOLUME 9.2 FL (7.4-10.4); MONOCYTES # (AUTO) 0.5 X 10^3 (0.0-1.0); MONOCYTES % (AUTO) 7 % (0-12); NEUTROPHILS # (AUTO) 5.9 X 10^3 (1.8-7.8); NEUTROPHILS % (AUTO) 79 % (42-75); PLATELET COUNT 506 10^3/uL (130-400); RED CELL DISTRIBUTION WIDTH 15.5 % (10.0-14.5); WHITE BLOOD COUNT 7.4 10^3/uL (4.3-11.0)
--- NOTE | 2018-08-19 15:20 | Diagnostic Imaging Report ---
PROCEDURE: CT head and CT cervical spine without contrast. TECHNIQUE: Multiple contiguous axial images were obtained through the brain and cervical spine without the use of intravenous contrast. Sagittal and coronal reformations through the cervical spine were then performed. INDICATION: Fall. Left facial droop. Lethargy. Aphasia. Trauma. COMPARISON: CT head dated 03/13/2018. FINDINGS: CT head: The ventricles and cortical sulci are diffusely prominent, compatible with age-related volume loss. There are confluent areas of abnormal, low attenuation in the periventricular white matter. This is consistent with chronic small vessel ischemic changes. There is no midline shift or mass-effect. No acute intra-axial hemorrhage is seen. There are no abnormal areas of increased or decreased density to suggest acute hemorrhage or edema. No extra-axial masses or collections are present. The bony calvarium is intact. The visualized paranasal sinuses are unremarkable. The mastoid air cells are clear. CT cervical spine: Evaluation of the static alignment demonstrates straightening with slight reversal of normal lordotic curvature of the cervical spine. There is also slight grade 1 retrolisthesis at C3-C4. There is no evidence of jumped facets. Vertebral body heights are maintained. There is no evidence of acute fracture. No bony fragments are seen within the spinal canal. There are advanced multilevel degenerative changes of the cervical spine consistent with intervertebral disc height loss with anterior and posterior disc osteophyte complex formations, as well as multilevel facet arthropathy. These changes appear greatest at the C3-C4 level. There is also large partially calcified pannus formation posterior to the dens; likely degenerative in nature as well. This is stable when compared to 06/11/2016. Pre- and para-vertebral soft tissue structures are unremarkable. Note is made of calcified carotid atherosclerosis. Included portions of the lung apices show no additional acute abnormalities. IMPRESSION: 1. No acute intracranial abnormality. No CT evidence of mass, acute infarct, or intracranial hemorrhage. 2. Chronic small vessel ischemic changes in the deep white matter. 3. No acute fracture or dislocation of the cervical spine. 4. Advanced multilevel degenerative changes of the cervical spine, greatest at C3-C4. Dictated by: Dictated on workstation # [id number]
--- NOTE | 2018-08-19 15:24 | Diagnostic Imaging Report ---
INDICATION: Fall with right shoulder deformity. TIME OF EXAM: 03:09 p.m. The heart size is normal. The lungs are clear. Pulmonary vascularity is normal. No infiltrate, effusion or pneumothorax is seen. IMPRESSION: No acute bony abnormality is detected. Dictated by: Dictated on workstation # [id number]
--- NOTE | 2018-08-19 15:27 | Diagnostic Imaging Report ---
INDICATION: Fall with shoulder deformity. TIME OF EXAM: 3:11 p.m. EXAMINATION: Three views of the right shoulder were obtained. FINDINGS: The humeral head appears to be position anteriorly on the scapular Y-view suggestive of an anterior dislocation/subluxation. No fracture is seen. Acromioclavicular alignment is normal. IMPRESSION: There are findings suggestive of an anterior right shoulder dislocation/subluxation. No fracture is detected. Dictated by: Dictated on workstation # [id number]
[2018-08-19 15:30] LABS: PROTHROMBIN TIME PATIENT 13.2 SEC (12.2-14.7)
[2018-08-19 15:37] LABS: ALBUMIN 3.2 GM/DL (3.2-4.5); BILIRUBIN,TOTAL 0.3 MG/DL (0.1-1.0); CREATININE SERUM 0.91 MG/DL (0.60-1.30); POTASSIUM 4.3 MMOL/L (3.6-5.0); TOTAL PROTEIN 6.5 GM/DL (6.4-8.2)
[2018-08-19] MEDS ORDERED: ETOMIDATE IV SOLN 20 MG/10 ML VIAL IV ONE (15:45)
[2018-08-19] MEDS ORDERED: NS IV 500 ML 500 ML IV SCH (15:45)
--- NOTE | 2018-08-19 16:15 | NUR ---
PT FAMILY HERE STATES DISLOCATION CHRONIC APPROX 3 YEARS.
[2018-08-19 16:25] LABS: CLARITY,URINE VERY CLOUDY; COLOR,URINE YELLOW; GLUCOSE, URINE (UA) NEGATIVE (NEGATIVE); KETONES,URINE 1+ (NEGATIVE); LEUKOCYTE ESTERASE ,URINE 3+ (NEGATIVE); NITRITE,URINE NEGATIVE (NEGATIVE); PH,URINE 6 (5-9); PROTEIN,URINE 3+ (NEGATIVE); UROBILINOGEN,URINE 4 MG/DL (NORMAL)
[2018-08-19 16:36] LABS: BACTERIA,URINE MODERATE /HPF; BILIRUBIN,URINE 1+ (NEGATIVE); RBC,URINE >100 /HPF; WBC,URINE >100 /HPF
[2018-08-19] MEDS ORDERED: CEFU250T80 PO (16:43)
[2018-08-19] MEDS ORDERED: cefTRIAXone FOR IV USE 1,000 MG in WATER (STERILE) FOR INJECTION 10 ML IV ONE (16:45)
--- NOTE | 2018-08-19 16:49 | NUR ---
HARSH HORNE CALLED TO SOFTWARE LICENSING SPECIALIST PT
[2018-08-19 16:59] VITALS: BP 104/59
--- NOTE | 2018-08-19 17:37 | NUR ---
PT PICKED UP BY WHEEL CHAIR [facility] STAFF
== END 2018-08-19 17:40 | disposition home or self-care (01) ==
LOC: EDUNIT# 14:54 → ER 14:55
DX: R29.810 Facial weakness (principal); N39.0 Urinary tract infection, site not specified; I10 Essential (primary) hypertension; E78.00 Pure hypercholesterolemia, unspecified; F03.90 Unspecified dementia, unspecified severity, without behavioral disturbance, psychotic disturbance, mood disturbance, and anxiety; G40.909 Epilepsy, unspecified, not intractable, without status epilepticus; E03.9 Hypothyroidism, unspecified; R40.2142 Coma scale, eyes open, spontaneous, at arrival to emergency department; R40.2242 Coma scale, best verbal response, confused conversation, at arrival to emergency department; R40.2362 Coma scale, best motor response, obeys commands, at arrival to emergency department; Z85.42 Personal history of malignant neoplasm of other parts of uterus; Z79.82 Long term (current) use of aspirin; Z79.51 Long term (current) use of inhaled steroids; W19.XXXA Unspecified fall, initial encounter
CPT/HCPCS: 36415; 70450; 71045; 72125; 73030; 80053; 81000; 83735; 84443; 85025; 85610; 85730; 87077; 87088; 87186; 93005

== ENCOUNTER 2018-10-27 11:30 | Emergency (ER) | payer MEDICARE, OTHER ==
[~2018-10-27] VITALS: Ht 154.9 cm; Wt 54.4 kg
[~2018-10-27 11:30] MED LIST changes: -HOLD METFORMIN - RECEIVED CONTRAST 20 ML VIAL IV SCH; -IOHEXOL 350 MG/ML 100 ML (OMNIPAQUE 350) VIAL IV ONE
[2018-10-27] MEDS: NS IV 500 ML 500 ML IV SCH ×2 (11:35→12:07)
[2018-10-27 11:46] LABS: BASOPHILS % (AUTO) 0 % (0-10); EOSINOPHILS # (AUTO) 0.1 10^3/uL (0.0-0.3); EOSINOPHILS % (AUTO) 1 % (0-10); HEMATOCRIT 29 % (35-52); HEMOGLOBIN 9.4 G/DL (11.5-16.0); LYMPHOCYTES # (AUTO) 0.9 X 10^3 (1.0-4.0); LYMPHOCYTES % (AUTO) 9 % (12-44); MEAN CORPUSCULAR HEMOGLOBIN 31 PG (25-34); MEAN CORPUSCULAR HGB CONC 32 G/DL (32-36); MEAN CORPUSCULAR VOLUME 95 FL (80-99); MEAN PLATELET VOLUME 8.6 FL (7.4-10.4); MONOCYTES # (AUTO) 0.7 X 10^3 (0.0-1.0); MONOCYTES % (AUTO) 6 % (0-12); NEUTROPHILS # (AUTO) 8.9 X 10^3 (1.8-7.8); NEUTROPHILS % (AUTO) 84 % (42-75); PLATELET COUNT 454 10^3/uL (130-400); RED CELL DISTRIBUTION WIDTH 14.8 % (10.0-14.5); WHITE BLOOD COUNT 10.6 10^3/uL (4.3-11.0)
[2018-10-27 12:09] LABS: ALBUMIN 2.9 GM/DL (3.2-4.5); BILIRUBIN,TOTAL 0.2 MG/DL (0.1-1.0); CALCIUM 9.1 MG/DL (8.5-10.1); CREATININE SERUM 1.21 MG/DL (0.60-1.30); POTASSIUM 4.8 MMOL/L (3.6-5.0); TOTAL PROTEIN 6.7 GM/DL (6.4-8.2)
--- NOTE | 2018-10-27 12:57 | Diagnostic Imaging Report ---
PROCEDURE: CT head and CT cervical spine without contrast. TECHNIQUE: Multiple contiguous axial images were obtained through the brain and cervical spine without the use of intravenous contrast. Sagittal and coronal reformations through the cervical spine were then performed. Auto Exposure Controls were utilized during the CT exam to meet ALARA standards for radiation dose reduction. INDICATION: Fell head and neck pain CT head The study is less than optimal due to streak artifact. There is no mass, shift of midline or hemorrhage to suggest an acute intracranial abnormality. The ventricles are not abnormally dilated and stable in size when compared to the prior exam of 08/19/2018. The senescent changes seen on the prior study including cortical atrophy and periventricular encephalomalacia are again visualized and no different. The bone windows show no sign of a skull fracture. However there is soft tissue edema over the right frontal bone. The orbits are symmetrical and within normal limits. In the interval since the prior study a small amount of fluid and gas has developed in the dependent portion of left maxillary antrum. There is no definite fracture of the facial bones to suggest that the fluid is related to hemorrhage. The sinuses are otherwise clear. IMPRESSION: 1. There is soft tissue edema over the right frontal bone but there is no sign of a skull fracture. There is no evidence for an acute intracranial abnormality either. 2. If clinical concern regarding an underlying abnormality persists, then MRI would be recommended for further study. CT cervical spine. ThIS study is less than optimal due to mild motion artifact. As noted on the prior CT cervical spine exam of 08/19/2018 there is degenerative disc and bony disease throughout the cervical spine. The degenerative changes do not appear to have progressed since the prior study. There is no fracture or acute bony abnormality appreciated. The lung apices are clear. There is no sign of retropharyngeal edema. The thyroid gland is unremarkable. IMPRESSION: There is no evidence for an acute bony abnormality of the cervical spine. Dictated by: Dictated on workstation # [id number]
--- NOTE | 2018-10-27 13:07 | ED Trauma-Multisystem ---
General Chief Complaint: Trauma-Non Activation Stated Complaint: FALL Nursing Triage Note: PT TO ROOM [address] SCANNER PT FELL OUT OF W/C TO FLOOR, HAS .5CM LAC TO FOREHEAD CT STATES NO LOC. PT IS AWAKE AND ALERT BUT CONFUSED, STAFF W PT STATE SHE IS NORMALLY CONFUSED. PT TO GET CT FOR CA CHECK UP. PT IS FROM [facility] [place]. PT IS ABLE TO MOVE ALL EXT Source of Information: Patient, Caregiver Exam Limitations: No Limitations History of Present Illness Date Seen by Provider: Oct 27, 2018 Time Seen by Provider: 11:42 Location Injury Occurred: [facility] Allergies and Home Medications Allergies Coded Allergies: No Known Drug Allergies (Unverified , 04/19/18) Home Medications Acetaminophen 500 Mg Tablet, 1,000 MG PO HS, (Reported) TAKES 2 (500MG) TABLETS Acetaminophen 500 Mg Tablet, 1,000 MG PO Q4H PRN for PAIN-MILD OR TEMPATURE, ( Reported) Alprazolam 0.25 Mg Tablet, 0.25 MG PO 0530,1400 Prescribed by: SATYA SIDDIQUI on 04/22/18 1041 Amlodipine Besylate 10 Mg Tablet, 10 MG PO DAILY, (Reported) Aspirin 81 Mg Tablet.dr, 81 MG PO DAILY, (Reported) Cefuroxime Axetil 250 Mg Tablet, 250 MG PO BID Prescribed by: ANOOP MARTE on 08/19/18 1643 Citalopram Hydrobromide 40 Mg Tablet, 40 MG PO DAILY, (Reported) Cyanocobalamin (Vitamin B-12) 500 Mcg Tablet, 1,000 MCG PO DAILY, (Reported) Docusate Sodium 100 Mg Capsule, 100 MG PO BID, (Reported) Donepezil HCl 10 Mg Tablet, 10 MG PO HS, (Reported) Enoxaparin Sodium 30 Mg/0.3 Ml Syringe, 30 MG SC BID@0600,1800 Prescribed by: SATYA SIDDIQUI on 04/22/18 1041 Lactulose 20 Gm/30 Ml Solution, 20 GM PO TID Prescribed by: SATYA SIDDIQUI on 04/22/18 1041 Levothyroxine Sodium 25 Mcg Tablet, 25 MCG PO DAILY, (Reported) Lisinopril 20 Mg Tablet, 20 MG PO DAILY, (Reported) Lubiprostone 24 Mcg Capsule, 24 MCG PO BID, (Reported) Magnesium Hydroxide 400 Mg/5 Ml Oral.susp, 30 ML PO DAILY PRN for CONSTIPATION- 7TH LINE, (Reported) Memantine HCl 10 Mg Tablet, 10 MG PO BID, (Reported) Ondansetron 8 Mg Tab.rapdis, 8 MG PO Q8H PRN for NAUSEA/VOMITING-1ST LINE, ( Reported) Quetiapine Fumarate 25 Mg Tablet, 25 MG PO HS, (Reported) Rosuvastatin Calcium 20 Mg Tablet, 20 MG PO HS, (Reported) Tramadol HCl 50 Mg Tablet, 50 MG PO Q4H PRN for PAIN-MODERATE Prescribed by: SATYA SIDDIQUI on 04/22/18 1041 Past Tlcqjih-Xlnngf-Xxhygh Hx Patient Social History Alcohol Use: Denies Use Recreational Drug Use: No Smoking Status: Never a Smoker 2nd Hand Smoke Exposure: No Recent Foreign Travel: No Contact w/Someone Who Travel: No Recent Infectious Disease Expo: No Recent Hopitalizations: No Immunizations Up To Date Tetanus Booster (TDap): Unknown PED Vaccines UTD: Yes Seasonal Allergies Seasonal Allergies: No Past Medical History Surgeries: Yes (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 AT ) Respiratory: No Cardiac: Yes High Cholesterol, Hypertension Neurological: Yes Dementia, Seizure Disorder Reproductive Disorders: Yes (UTERINE CANCER) Female Reproductive Disorders: Denies [employer] History: Menopausal Sexually Transmitted Disease: No Genitourinary: No Gastrointestinal: No Musculoskeletal: Yes (FREQUENT FALLS/GAIT DISTURBANCE; GENERALIZED WEAKNESS) Endocrine: Yes Hypothyroidsim HEENT: Yes (RIGHT EYE CATARACT) Cataract Loss of Vision: Denies Hearing Impairment: Denies Cancer: Yes Uterine Did You Recieve Any Treatments: Yes Psychosocial: No Integumentary: No Blood Disorders: No Family Medical History Patient reports no known family medical history. No Pertinent Family Hx Physical Exam Vital Signs Vital Signs - First Documented 10/27/18 11:30 Temp 97.9 Pulse 72 Resp 18 B/P (MAP) 90/58 (69) Pulse Ox 98 Height, Weight, BMI Height: 5'1.00" Weight: 120lbs. 0.0oz. 54.511918ap; 25.8 BMI Method:Estimated Progress/Results/Core Measures Results/Orders Lab Results Laboratory Tests Test 10/27/18 11:40 Range/Units White Blood Count 10.6 4.3-11.0 10^3/uL Red Blood Count 3.07 L 4.35-5.85 10^6/uL Hemoglobin 9.4 L 11.5-16.0 G/DL Hematocrit 29 L 35-52 % Mean Corpuscular Volume 95 80-99 FL Mean Corpuscular Hemoglobin 31 25-34 PG Mean Corpuscular Hemoglobin Concent 32 32-36 G/DL Red Cell Distribution Width 14.8 H 10.0-14.5 % Platelet Count 454 H 130-400 10^3/uL Mean Platelet Volume 8.6 7.4-10.4 FL Neutrophils (%) (Auto) 84 H 42-75 % Lymphocytes (%) (Auto) 9 L 12-44 % Monocytes (%) (Auto) 6 0-12 % Eosinophils (%) (Auto) 1 0-10 % Basophils (%) (Auto) 0 0-10 % Neutrophils # (Auto) 8.9 H 1.8-7.8 X 10^3 Lymphocytes # (Auto) 0.9 L 1.0-4.0 X 10^3 Monocytes # (Auto) 0.7 0.0-1.0 X 10^3 Eosinophils # (Auto) 0.1 0.0-0.3 10^3/uL Basophils # (Auto) 0.0 0.0-0.1 10^3/uL Sodium Level 134 L 135-145 MMOL/L Potassium Level 4.8 3.6-5.0 MMOL/L Chloride Level 101 98-107 MMOL/L Carbon Dioxide Level 27 21-32 MMOL/L Anion Gap 6 5-14 MMOL/L Blood Urea Nitrogen 51 H 7-18 MG/DL Creatinine 1.21 0.60-1.30 MG/DL Estimat Glomerular Filtration Rate 43 BUN/Creatinine Ratio 42 Glucose Level 130 H 70-105 MG/DL Calcium Level 9.1 8.5-10.1 MG/DL Corrected Calcium 10.0 8.5-10.1 MG/DL Total Bilirubin 0.2 0.1-1.0 MG/DL Aspartate Amino Transf (AST/SGOT) 19 5-34 U/L Alanine Aminotransferase (ALT/SGPT) 19 0-55 U/L Alkaline Phosphatase 68 40-136 U/L Total Protein 6.7 6.4-8.2 GM/DL Albumin 2.9 L 3.2-4.5 GM/DL My Orders Orders - JHON MCCAIN Cbc With Automated Diff (10/27/18 11:41) Comprehensive Metabolic Panel (10/27/18 11:41) Ns Iv 500 Ml (Sodium Chloride 0.9%) (10/27/18 11:45) Ct Head/Cervical Spine Wo (10/27/18 11:41) Vital Signs/I&O 10/27/18 11:30 Temp 97.9 Pulse 72 Resp 18 B/P (MAP) 90/58 (69) Pulse Ox 98 Blood Pressure Mean: 69 Departure Impression Primary Impression: Minor head injury Additional Impression: Scalp hematoma Disposition: 01 HOME, SELF-CARE Condition: Stable/Unchanged Departure-Patient Inst. Decision time for Depature: 13:06 Referrals: HUBER LEAHY MD (PCP/Family) Primary Care Physician Patient Instructions: Minor Head Injury Add. Discharge Instructions: Follow-up with your primary care provider as needed. Return back to the emergency room for worsening symptoms or concerns as needed. All discharge instructions reviewed with patient and/or family. Voiced understanding. JOHN MCCAIN Oct 27, 2018 13:07
[2018-10-27 13:15] VITALS: BP 90/45
--- NOTE | 2018-10-27 13:17 | NUR ---
PT TO X-RAY DEPT W STAFF PER [facility]OLF STAFF W PT
== END 2018-10-27 13:18 | disposition home or self-care (01) ==
LOC: EDUNIT# 11:34 → ER 11:34
DX: S09.90XA Unspecified injury of head, initial encounter (principal); S00.03XA Contusion of scalp, initial encounter; E78.00 Pure hypercholesterolemia, unspecified; I10 Essential (primary) hypertension; F03.90 Unspecified dementia, unspecified severity, without behavioral disturbance, psychotic disturbance, mood disturbance, and anxiety; G40.909 Epilepsy, unspecified, not intractable, without status epilepticus; E03.9 Hypothyroidism, unspecified; Z85.42 Personal history of malignant neoplasm of other parts of uterus; Z79.82 Long term (current) use of aspirin; V00.811A Fall from moving wheelchair (powered), initial encounter
CPT/HCPCS: 36415; 70450; 72125; 80053; 85025

== ENCOUNTER → 2018-10-27 | Outpatient (CLI) | payer MEDICARE, OTHER ==
[~2018-10-27] MED LIST changes: +CEFU250T80 PO; +HOLD METFORMIN - RECEIVED CONTRAST 20 ML VIAL IV SCH; +IOHEXOL 350 MG/ML 100 ML (OMNIPAQUE 350) VIAL IV ONE; -ROSU20TA PO; +ROSU20TA2 PO
[2018-10-27 11:16] LABS: CALCIUM 9.1 MG/DL (8.5-10.1); CREATININE SERUM 1.18 MG/DL (0.60-1.30); POTASSIUM 4.5 MMOL/L (3.6-5.0)
--- NOTE | 2018-10-27 14:35 | Diagnostic Imaging Report ---
PROCEDURE: CT chest, abdomen, and pelvis with contrast. TECHNIQUE: Multiple contiguous axial images were obtained through the chest, abdomen, and pelvis after the administration of intravenous contrast. Auto Exposure Controls were utilized during the CT exam to meet ALARA standards for radiation dose reduction. INDICATION: Endometrial carcinoma. COMPARISON: Correlation is made with prior CT from 03/13/2018. FINDINGS: CT CHEST: No definite axillary lymphadenopathy is seen. No hilar or mediastinal lymphadenopathy is detected. No pericardial or pleural fluid is identified. Pulmonary parenchymal evaluation does show a tiny subpleural nodule lateral portion right upper lobe, image 30 measuring 3 mm. This is not definitely seen on prior exam. Subpleural nodule lateral portion left upper lobe is also noted measuring 3 mm, not definitely seen on prior exam. Small nodular density adjacent to the major fissure on the right is seen image 42 approximately 3 mm in size. Slightly nodular density left lower lobe, image 45 is noted measuring 5 mm, not seen on prior exam. No infiltrates are seen. There are degenerative changes both shoulders. There appears to be anterior subluxation of the right shoulder in relation to the glenoid. IMPRESSION: 1. No evidence of thoracic lymphadenopathy. There has been development of several micronodules when compared with prior CT of 03/13/2018. Metastatic disease cannot be entirely excluded and close followup is recommended. 2. Bilateral shoulder joint degenerative changes with mild anterior subluxation of the right shoulder. CT ABDOMEN AND PELVIS: No discrete liver mass is identified. The gallbladder is unremarkable. No biliary duct dilatation is seen. Pancreas and spleen are unremarkable. No discrete adrenal mass is detected. Kidneys are unremarkable. Aorta is calcified but nonaneurysmal. No definite central retroperitoneal or mesenteric lymphadenopathy is seen. There is moderate amount of stool throughout the colon consistent with constipation. IUD within the uterus is again noted. There has been development of a large mass in the region of the lower uterine segment since prior CT measuring approximately 7.2 x 6.4 cm. This most likely represents patient's known newly diagnosed endometrial carcinoma. No enlarged inguinal nodes are seen. There is pelvic sidewall lymphadenopathy that has developed. Partially necrotic lymph node left obturator region is now seen measuring 3.9 x 2.9 cm. Right iliac node measures 1.8 x 1.5 cm. Bladder is unopacified but appears unremarkable. Postsurgical changes of the left hip are seen. Left convexity lumbar scoliotic curvature is noted. A chronic compression fracture deformity of L1 is again noted. IMPRESSION: 1. Development of a large mass within the uterus, consistent with patient's known recently diagnosed endometrial carcinoma. Bilateral pelvic sidewall lymphadenopathy has developed consistent with metastatic disease. 2. Moderate stool throughout the colon consistent with constipation. Dictated by: Dictated on workstation # [id number]
== END ==
LOC: RAD 10:10
PROVIDERS: ATTEND Student in an Organized Health Care Education/Training Program
DX: C54.1 Malignant neoplasm of endometrium (principal); M19.011 Primary osteoarthritis, right shoulder; M19.012 Primary osteoarthritis, left shoulder; S43.001A Unspecified subluxation of right shoulder joint, initial encounter; R59.0 Localized enlarged lymph nodes; R91.8 Other nonspecific abnormal finding of lung field; Z97.5 Presence of (intrauterine) contraceptive device
CPT/HCPCS: 36415; 71260; 74177; 80048